=== PATIENT | female | born 1940 | race Caucasian/White ===

== ENCOUNTER 2017-06-20 08:07 | Outpatient (CLI) | payer MEDICARE, OTHER ==
--- NOTE | 2017-06-20 09:20 | PRG ---
DATE OF SERVICE: 06/20/2017 HISTORY: Ms. Lexie Echevarria is a very pleasant 76-year-old accompanied by her idhytigg-mk-ovm who presents [facility] for evaluation of an ulceration of the plantar surface of the righ t lateral midfoot. The patient has completed a course of treatment with Regranex. Subsequently, th e patient received a trial of dressing changes of Hydrofera Blue with the assistance of [facility] for the right lateral plantar foot wound. More recently, the patient has been receiving dressing ch anges of Arglaes powder. Ms. Echevarria has no complaints today. She denies any fever or chills. PHYSICAL EXAMINATION: VITAL SIGNS: Temperature 97.7, pulse 77, respirations 18, blood pressure 180/76. Accu-Chek 131. EXTREMITIES: The right lateral plantar midfoot ulceration measures approximately 0.5 x 0.5 cm. The dimensions of the wound at the time of the patient's last visit were approximately 0.6 x 0.7 cm. G ranulation tissue is present within the margins of the wound. Nonviable tissue present within the w ound margins was debrided with an excisional full-thickness debridement with the use of a curette. Callus undermining and desiccated tissue at the periphery of the wound were excised with the use of scissors. No purulent drainage is associated with the wound. An odor is associated with the wound on exam today. No erythema of the skin surrounding the wound is present. No maceration of the skin of the periwound is noted. No significant edema of the right foot is appreciated on exam today. ASSESSMENT AND PLAN: 1. Right lateral midfoot plantar ulceration. Dressing changes of Arglaes powder, 4 x 4s and ABD an d Kerlix will be continued 3 times per week after cleansing and irrigation with the assistance of [facility]. Promogran will be added to the patient's regimen and applied directly to the wound bed a t the time of dressing changes. I will see Ms. Echevarria again in 8 weeks. The patient has been give n a prescription for Augmentin 875/125, #20, 1 p.o. b.i.d. x10 days. 2. Diabetes mellitus. The patient's Accu-Chek in clinic today is 131. The patient has been remind ed that for optimal wound healing, her blood glucoses should remain below 150. 3. Coronary artery disease. 4. Hypertension. 5. History of peripheral vascular disease. 6. Renal insufficiency. 7. Osteoarthritis. 8. Obstructive sleep apnea. 9. Chronic obstructive pulmonary disease.
[2017-06-20] MEDS ORDERED: Lidocaine 4% Topical Sol 50 ML BOT ONE (11:11)
[2017-06-20] MEDS ORDERED: Sodium Chloride 0.9% 15 ML NEB ONE (11:11)
== END 2017-06-20 08:08 | disposition home or self-care (01) ==
LOC: WCC 08:07
PROVIDERS: ATTEND Family Medicine
DX: E11.621 Type 2 diabetes mellitus with foot ulcer (principal); L97.419 Non-pressure chronic ulcer of right heel and midfoot with unspecified severity; I25.10 Atherosclerotic heart disease of native coronary artery without angina pectoris; I10 Essential (primary) hypertension; M19.90 Unspecified osteoarthritis, unspecified site; E11.51 Type 2 diabetes mellitus with diabetic peripheral angiopathy without gangrene; J44.9 Chronic obstructive pulmonary disease, unspecified; G47.33 Obstructive sleep apnea (adult) (pediatric); N28.9 Disorder of kidney and ureter, unspecified
CPT/HCPCS: 11042; A4218; J2001

== ENCOUNTER 2017-07-25 08:10 | Outpatient (CLI) | payer MEDICARE, MEDICAID ==
--- NOTE | 2017-07-25 09:51 | PRG ---
DATE OF SERVICE: 07/25/2017 HISTORY: Ms. Lexie Echevarrai is a very pleasant 76-year-old accompanied by her wpsjpedl-ci-aol who presents to the Wound Center for evaluation of an ulceration of the plantar surface of the right lateral midfoot. The patient has completed a course of treatment with Regranex. Subsequently, the patient received a trial of dressing changes of Hydrofera Blue with the assistance of [facility] for the right lateral plantar foot wound. More recently, the patient has been receiving dressing changes of Arglaes powder. Ms. Echevarria denies any fever or chills. PHYSICAL EXAMINATION: VITAL SIGNS: Temperature 97.8, pulse 85, respirations 17, blood pressure 139/ 65. Accu-Chek 121. EXTREMITIES: The right lateral plantar midfoot ulceration measures approximately 1.0 x 0.8 cm. The dimensions of the wound at the time of the patient's last visit were approximately 0.5 x 0.5 cm. Granulation tissue is present within the wound margins. Callus, undermining, and desiccated tissue at the periphery of the wound were excised with an excisional full-thickness debridement with the use of scissors. No purulent drainage is associated with the wound. No erythema of the skin surrounding the wound is present. No maceration of the skin of the periwound is noted. No significant edema of the right foot is appreciated on exam today. ASSESSMENT AND PLAN: 1. Right lateral midfoot plantar ulceration. The dimensions of the wound have increased since the patient's last visit, and dressing changes of Hydrofera Blue will be resumed. 4 x 4s, an ABD, and Kerlix will be continued as secondary dressings. These dressing changes are to be performed 3 times per week after cleansing and irrigation with the assistance of Home [facility]. I will see Ms. Echevarria again in 8 weeks. 2. Diabetes mellitus. The patient's Accu-Chek in clinic today is 121. The patient has been reminded that for optimal wound healing, her blood glucoses should remain below 150. 3. Coronary artery disease. 4. Hypertension. 5. History of peripheral vascular disease. 6. Renal insufficiency. 7. Osteoarthritis. 8. Obstructive sleep apnea. 9. Chronic obstructive pulmonary disease. [facility]
[2017-07-25] MEDS ORDERED: Sodium Chloride 0.9% 15 ML NEB ONE (17:50)
== END 2017-07-25 08:11 | disposition home or self-care (01) ==
LOC: WCC 08:10
PROVIDERS: ATTEND Family Medicine
DX: E11.621 Type 2 diabetes mellitus with foot ulcer (principal); L97.419 Non-pressure chronic ulcer of right heel and midfoot with unspecified severity; M19.90 Unspecified osteoarthritis, unspecified site; J44.9 Chronic obstructive pulmonary disease, unspecified; G47.33 Obstructive sleep apnea (adult) (pediatric); N28.9 Disorder of kidney and ureter, unspecified
CPT/HCPCS: 11042; A4218

== ENCOUNTER 2017-08-05 09:05 | Outpatient (CLI) | payer MEDICARE, MEDICAID ==
[~2017-08-05 09:05] MED LIST: Sodium Chloride 0.9% 15 ML NEB ONE
[2017-08-05] MEDS ORDERED: Sodium Chloride 0.9% 15 ML NEB ONE (11:04)
--- NOTE | 2017-08-05 16:33 | PRG ---
DATE OF SERVICE: 08/05/2017 HISTORY: Ms. Lexie Echevarria is a very pleasant 76-year-old accompanied by her [id number] , who presents to the Wound Center for evaluation of a venous ulceration of the left anterior lower leg. The patient states that the ulceration has been associated with significant serous drainage as well as an odor. The patient states that she has been receiving dressing changes of Adaptic, 4 x 4 s, an ABD and Kerlix for the ulceration 3 times per week with the assistance of Home [facility]. The pa tracey states that on her own, she began applying Neosporin to the ulceration with an improvement in the appearance of the wound. The patient has no other complaints today. She denies any fever or ch ills. PHYSICAL EXAMINATION: VITAL SIGNS: Temperature 97.5, pulse 72, respirations 18, blood pressure 179/76. Accu-Chek 151. EXTREMITIES: The venous ulceration of the left anterior lower leg measures approximately 2.2 x 1.5 cm. A sample of the serous drainage associated with the wound was sent for aerobic and anaerobic cu ltures. Erythema of the left lower leg is present and appears to be secondary to stasis changes as opposed to an infectious process. No maceration of the skin of the left lower leg is present. No s ignificant edema of the left foot or lower leg is appreciated on exam today. ASSESSMENT AND PLAN: 1. 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 Dressing changes of Neosporin, Adaptic , 4 x 4s, an ABD and Kerlix will be initiated today. These dressing changes are to be performed 3 t imes per week after cleansing and irrigation with the assistance of Home [facility]. The patient has be en given a prescription for Augmentin 875/125, #20 one p.o. b.i.d. x10 days. Antibiotic therapy danyell l be modified based upon the results of the cultures obtained today. I will see Ms. Echevarria again i n 4 weeks. Unfortunately, the patient is not a candidate for treatment with a pneumatic pump becaus e of her inability to recline in the supine position. The patient is also not a candidate for compr ession with compression garments or compression wraps per Cardiology. 2. Diabetes mellitus. The patient's Accu-Chek in clinic today is 151. The patient has been remind ed that for optimal wound healing, her blood glucoses should remain below 150. 3. Coronary artery disease. 4. Hypertension. 5. History of peripheral vascular disease. 6. Renal insufficiency. 7. Osteoarthritis. 8. Obstructive sleep apnea. 9. Chronic obstructive pulmonary disease.
== END 2017-08-05 09:06 | disposition home or self-care (01) ==
LOC: WCC 09:05
PROVIDERS: ATTEND Family Medicine
DX: I87.332 Chronic venous hypertension (idiopathic) with ulcer and inflammation of left lower extremity (principal); L97.829 Non-pressure chronic ulcer of other part of left lower leg with unspecified severity; E11.9 Type 2 diabetes mellitus without complications; I10 Essential (primary) hypertension; N28.9 Disorder of kidney and ureter, unspecified; Z86.79 Personal history of other diseases of the circulatory system; J44.9 Chronic obstructive pulmonary disease, unspecified; M19.90 Unspecified osteoarthritis, unspecified site; G47.33 Obstructive sleep apnea (adult) (pediatric)
CPT/HCPCS: 87070; 87075; 87077; 87184; 87186; 87205; 97139; 97602; G0463; 99213; A4218

== ENCOUNTER 2017-08-29 08:45 | Outpatient (CLI) | payer MEDICARE, OTHER ==
--- NOTE | 2017-08-29 10:07 | PRG ---
DATE OF SERVICE: 08/29/2017 HISTORY: Ms. Lexie Echevarria is a very pleasant 76-year-old accompanied by her [id number]-[id number], who presents to the Wound Center for evaluation of an ulceration of the plantar surface of the right lateral midfoot. The patient has been receiving dressing changes of Hydrofera Blue for this wound 3 times per week after cleansing and irrigation with the assistance of Home [facility]. Ms. Echevarria state s that she is applying Neosporin to the venous ulcerations of her right and left lower legs. The pat ient has no complaints today. She denies any fever or chills. PHYSICAL EXAMINATION: VITAL SIGNS: Temperature 97.3, pulse 81, respirations 17, blood pressure 153/71. Accu-Chek 143. EXTREMITIES: The venous ulcerations of the right and left lower legs appear to be healing without co mplications or any signs of infection. The ulceration of the plantar surface of the right lateral mi dfoot measures approximately 0.4 x 0.5 cm. Granulation tissue is present within the wound margins. Necrotic and nonviable tissue present within the wound margins was debrided with an excisional full-t hickness debridement with the use of a curette. Callus undermining and desiccated tissue at the [place] p[place] of the wound were excised with the use of scissors. No purulent drainage is associated with th e wound. No erythema of the skin surrounding the wound is present. No maceration of the skin of the periwound is noted. Post-debridement measurements are approximately 0.6 x 0.8 cm. ASSESSMENT AND PLAN: 1. Plantar ulceration of right lateral midfoot. Dressing changes of Hydrofera Blue, an ABD and Kerl ix will be continued 3 times per week after cleansing and irrigation with the assistance of [facility] for the venous ulcerations of the right and left lower legs. The patient is to receive dressing c hanges of Neosporin, ABDs and Kerlix also 3 times per week after cleansing and irrigation with the as sistance of Home Health. I will see Ms. Echevarria again in 4 weeks. 2. Diabetes mellitus. The patient's Accu-Chek in clinic today is 143. The patient has been reminde d that for optimal wound healing, her blood glucoses should remain below 150. 3. Coronary artery disease. 4. Hypertension. 5. History of peripheral vascular disease. 6. Renal insufficiency. 7. Osteoarthritis. 8. Obstructive sleep apnea. 9. Chronic obstructive pulmonary disease.
== END 2017-08-29 08:46 | disposition home or self-care (01) ==
LOC: WCC 08:45
PROVIDERS: ATTEND Family Medicine
DX: E11.621 Type 2 diabetes mellitus with foot ulcer (principal); L97.419 Non-pressure chronic ulcer of right heel and midfoot with unspecified severity; I10 Essential (primary) hypertension; I25.10 Atherosclerotic heart disease of native coronary artery without angina pectoris; J44.9 Chronic obstructive pulmonary disease, unspecified; N28.9 Disorder of kidney and ureter, unspecified; G47.33 Obstructive sleep apnea (adult) (pediatric); M19.90 Unspecified osteoarthritis, unspecified site; Z86.79 Personal history of other diseases of the circulatory system
CPT/HCPCS: 11042

== ENCOUNTER 2017-09-26 08:03 | Outpatient (CLI) | payer MEDICARE, OTHER ==
[2017-09-26] MEDS ORDERED: Sodium Chloride 0.9% 15 ML NEB ONE (09:00)
--- NOTE | 2017-09-26 09:47 | PRG ---
DATE OF SERVICE: 09/26/2017 HISTORY: Ms. Lexie Echevarria is a very pleasant 76-year-old accompanied by her [id number]-lh-mjj who presents to the Wound Center for evaluation of an ulceration of the plantar surface of the right lateral mid foot. The patient has been receiving dressing changes of Hydrofera Blue for the wound 3 times per week after cleansing and irrigation with the assistance of Home [facility]. The patient state s that she is now receiving dressing changes of Arglaes powder for the venous ulcerations of her righ t and left lower legs. She states that she previously had significant drainage associated with the v enous ulcerations of her right and left lower legs which decreased with dressing changes of Arglaes p owder. The patient denies any fever or chills. PHYSICAL EXAMINATION: VITAL SIGNS: Temperature 97.6, pulse 76, respirations 16, blood pressure 160/68. Accu-Chek 121. EXTREMITIES: Multiple venous ulcerations of the right and left lower legs are still present. No pur ulent drainage is associated with any of the wounds. The ulceration of the plantar surface of the ri t lateral mid foot measures approximately 0.6 x 0.5 cm. Granulation tissue is present within the w ound margins. Necrotic and nonviable tissue present within the wound margins was debrided with an ex cisional full-thickness debridement with the use of scissors. Callus undermining and desiccated tiss ue at the periphery of the wound were also excised with the use of scissors. No purulent drainage is associated with the wound. No erythema of the skin surrounding the wound is present. No maceration of the skin of the periwound is noted. Edema of the right foot and lower leg is present on exam tod elvira. ASSESSMENT AND PLAN: 1. Plantar ulceration of right lateral mid foot. Dressing changes of Hydrofera Blue, an ABD and Ker lix will be continued 3 times per week after cleansing and irrigation with the assistance of Home [facility]. For the venous ulcerations of the right and left lower legs the patient is to receive dressing changes of Arglaes powder, ABDs and Kerlix also 3 times per week after cleansing and irrigation with the assistance of Home [facility]. I will see Ms. Echevarria again in 4 weeks. 2. Diabetes mellitus. The patient's Accu-Chek in clinic today is 121. The patient has been reminde d that for optimal wound healing, her blood glucoses should remain below 150. 3. Coronary artery disease. 4. Hypertension. 5. History of peripheral vascular disease. 6. Renal insufficiency. 7. Osteoarthritis. 8. Obstructive sleep apnea. 9. Chronic obstructive pulmonary disease.
== END 2017-09-26 08:04 | disposition home or self-care (01) ==
LOC: WCC 08:03
PROVIDERS: ATTEND Family Medicine
DX: E11.621 Type 2 diabetes mellitus with foot ulcer (principal); L97.419 Non-pressure chronic ulcer of right heel and midfoot with unspecified severity; I25.10 Atherosclerotic heart disease of native coronary artery without angina pectoris; I10 Essential (primary) hypertension; M19.90 Unspecified osteoarthritis, unspecified site; G47.33 Obstructive sleep apnea (adult) (pediatric); N28.9 Disorder of kidney and ureter, unspecified; J44.9 Chronic obstructive pulmonary disease, unspecified; Z86.79 Personal history of other diseases of the circulatory system
CPT/HCPCS: 11042; A4218

== ENCOUNTER 2017-10-24 08:33 | Outpatient (CLI) | payer MEDICARE, OTHER, MEDICAID ==
--- NOTE | 2017-10-24 10:52 | PRG ---
DATE OF SERVICE: 10/24/2017 HISTORY: Ms. Lexie Echevarria is a very pleasant 76-year-old accompanied by her owtvyzey-gh-ajo who presents to the Wound Center for evaluation of an ulceration of the plantar surface of the right lateral midfoot. The patient states that most recently she has been receiving dressing changes of Arglaes powder for the wound 3 times per week after cleansing and irrigation with the assistance of Home [facility]. The patient states that she is also receiving dressing changes of Arglaes powder for the venous ulcerations of her right and left lower legs. She previously stated that she had experienced significant drainage with the venous ulcerations of her right and left lower legs which decreased with dressing changes of Arglaes powder. Ms. Echevarria denies any fever or chills. PHYSICAL EXAMINATION: VITAL SIGNS: Temperature 97.4, pulse 89, respirations 17, blood pressure 161/ 71. Accu-Chek 142. EXTREMITIES: Multiple venous ulcerations of the right and left lower legs are still present. No purulent drainage is associated with any of the wounds. The ulceration of the plantar surface of the right lateral midfoot measures approximately 0.4 x 0.4 cm. The dimensions of the wound at the time of the patient's visit on 09/26/2017 were approximately 0.6 x 0.5 cm. Granulation tissue is present within the wound margins. Necrotic and nonviable tissue present within the wound margins was debrided with an excisional full-thickness debridement with the use of scissors. Callus, undermining, and desiccated tissue at the periphery of the wound were also excised with the use of scissors. No purulent drainage is associated with the wound. No erythema of the skin surrounding the wound is present. No maceration of the skin of the periwound is noted. Edema of the right and left feet and lower legs is present on exam today. ASSESSMENT AND PLAN: 1. Plantar ulceration of right lateral midfoot. The patient also has venous ulcerations of the right and left lower legs. Orders will be transmitted to Home Health for dressing changes of Arglaes powder, ABDs, and Kerlix for all wounds 3 times per week after cleansing and irrigation with the assistance of Home [facility]. Orders will also be transmitted to Home Health for the use of foam at the time of dressing changes for offloading of the right plantar wound. I will see Ms. Echevarria again in 8 weeks. 2. Diabetes mellitus. The patient's Accu-Chek in clinic today is 142. The patient has been reminded that for optimal wound healing, her blood glucoses should remain below 150. 3. Coronary artery disease. 4. Hypertension. 5. History of peripheral vascular disease. 6. Renal insufficiency. 7. Osteoarthritis. 8. Obstructive sleep apnea. 9. Chronic obstructive pulmonary disease. MTDD
== END 2017-10-24 08:34 | disposition home or self-care (01) ==
LOC: WCC 08:33
PROVIDERS: ATTEND Family Medicine
DX: E11.621 Type 2 diabetes mellitus with foot ulcer (principal); L97.419 Non-pressure chronic ulcer of right heel and midfoot with unspecified severity; I25.10 Atherosclerotic heart disease of native coronary artery without angina pectoris; I10 Essential (primary) hypertension; N28.9 Disorder of kidney and ureter, unspecified; M19.90 Unspecified osteoarthritis, unspecified site; J44.9 Chronic obstructive pulmonary disease, unspecified; G47.33 Obstructive sleep apnea (adult) (pediatric); Z86.79 Personal history of other diseases of the circulatory system
CPT/HCPCS: 11042

== ENCOUNTER 2017-11-11 10:06 | Outpatient (CLI) | payer MEDICARE, MEDICAID ==
[2017-11-11] MEDS ORDERED: Lidocaine 2% Jelly 5 ML TUBE ONE (11:11)
[2017-11-11] MEDS ORDERED: Sodium Chloride 0.9% 15 ML NEB ONE (11:11)
--- NOTE | 2017-11-11 12:29 | PRG ---
DATE OF SERVICE: 11/11/2017 HISTORY: Ms. Lexie Echevarria is a very pleasant 76-year-old accompanied by her jmalhlhz-nw-bhj who presents to the Wound Center for evaluation of a new ulceration of the plantar surface of the left lateral foot. The patient also complains of an odor associated with the ulceration of the plantar surface of the right lateral midfoot. The patient has been receiving dressing changes of Arglaes powder for the plantar ulceration of the right lateral midfoot in addition to venous ulcerations of the right and left lower legs. The patient denies any fever or chills. She states that the ulceration of the plantar surface of the left lateral foot was noted by her Home Health nurse. She states that she does not recall stepping on any object which may have precipitated the appearance of the ulceration. PHYSICAL EXAMINATION: VITAL SIGNS: Temperature 97.6, pulse 78, respirations 18, blood pressure 196/ 85. Accu-Chek 125. EXTREMITIES: Multiple venous ulcerations of the right and left lower legs are still present. No purulent drainage is associated with any of the wounds. The ulceration of the plantar surface of the right lateral midfoot measures approximately 0.5 x 0.5 cm. Granulation tissue is present within the wound margins. Necrotic and nonviable tissue present within the wound margins was debrided with an excisional full-thickness debridement with the use of a curette. Callus, undermining, and desiccated tissue at the periphery of the wound were excised with the use of scissors. No purulent drainage is associated with the wound. No erythema of the skin surrounding the wound is present. No maceration of the skin of the periwound is noted. Edema of the right and left feet and lower legs is present on exam today. The ulceration of the plantar surface of the left lateral foot measures approximately 0.3 x 0.2 cm. No purulent drainage is associated with the wound. No erythema of the skin surrounding the wound is present. No maceration of the skin of the periwound is noted. ASSESSMENT AND PLAN: 1. Plantar ulceration of right lateral foot. As stated above, the patient also has a new ulceration of the plantar surface of the left lateral foot. Orders will be transmitted to Home Health for dressing changes of Xeroform gauze , ABDs, and Kerlix for all wounds 3 times per week after cleansing and irrigation with the assistance of Home Health. Plain films of the left foot will be obtained today to look for findings suggestive of a foreign body which may have precipitated the appearance of the left foot ulceration. The patient has also been given a prescription for Keflex 500 mg #20 one p.o. b.i.d. x10 days. The patient has been asked to contact the clinic in order to obtain the report of the plain films of the left foot. 2. Diabetes mellitus. The patient's Accu-Chek in clinic today is 125. The patient has been reminded that for optimal wound healing, her blood glucoses should remain below 150. 3. Coronary artery disease. 4. Hypertension. 5. History of peripheral vascular disease. 6. Renal insufficiency. 7. Osteoarthritis. 8. Obstructive sleep apnea. 9. Chronic obstructive pulmonary disease. MTDD
== END 2017-11-11 10:07 | disposition home or self-care (01) ==
LOC: WCC 10:06
PROVIDERS: ATTEND Family Medicine
DX: E11.621 Type 2 diabetes mellitus with foot ulcer (principal); L97.519 Non-pressure chronic ulcer of other part of right foot with unspecified severity; L97.529 Non-pressure chronic ulcer of other part of left foot with unspecified severity; I25.10 Atherosclerotic heart disease of native coronary artery without angina pectoris; I10 Essential (primary) hypertension; N28.9 Disorder of kidney and ureter, unspecified; M19.90 Unspecified osteoarthritis, unspecified site; G47.33 Obstructive sleep apnea (adult) (pediatric); J44.9 Chronic obstructive pulmonary disease, unspecified; I73.9 Peripheral vascular disease, unspecified
CPT/HCPCS: 11042; A4218

== ENCOUNTER 2017-11-11 12:43 | Outpatient (CLI) | payer MEDICARE, OTHER ==
--- NOTE | 2017-11-11 14:44 | RAD ---
LEFT FOOT 3 VIEWS: HISTORY: Evaluation for foreign body. FINDINGS: Bones are demineralized. There are arthritic changes of the foot. There are calcaneal spurs present . There is some soft tissue swelling noted. I do not see any radiopaque foreign bodies or plain chi m evidence for osteomyelitis. IMPRESSION: No plain film evidence for osteomyelitis. POS: [facility]
== END 2017-11-11 12:44 | disposition home or self-care (01) ==
LOC: RAD 12:43
PROVIDERS: ATTEND Family Medicine
DX: L97.529 Non-pressure chronic ulcer of other part of left foot with unspecified severity (principal)

== ENCOUNTER 2017-12-19 08:05 | Outpatient (CLI) | payer MEDICARE, MEDICAID ==
--- NOTE | 2017-12-19 09:19 | PRG ---
DATE OF SERVICE: 12/19/2017 HISTORY: Ms. Lexie Echevarria is a very pleasant 76-year-old accompanied by her rfwserun-fm-gtv who presents to the Wound Center for evaluation of an ulceration of the plantar surface of the right lateral midfoot. The patient also has an ulceration of the plantar surface of the left lateral foot. The patient has been receiving dressing changes of Xeroform gauze for both ulcerations with the assistance of Home Health. Ms. Echevarria has no other complaints today. She denies any fever or chills. PHYSICAL EXAMINATION: VITAL SIGNS: Temperature 97.7, pulse 75, respirations 18, blood pressure 152/ 67. Accu-Chek 118. EXTREMITIES: Multiple venous ulcerations of the right and left lower legs are still present. No purulent drainage is associated with any of the wounds. The ulceration of the plantar surface of the right lateral midfoot measures approximately 0.6 x 0.9 cm. Granulation tissue is present within the wound margins. Necrotic and nonviable tissue present within the wound margins was debrided with an excisional full-thickness debridement with the use of a curet. Callus, undermining, and desiccated tissue at the periphery of the wound were excised with the use of scissors. No purulent drainage is associated with the wound. No erythema of the skin surrounding the wound is present. No maceration of the skin of the periwound is noted. Edema of the right and left feet and lower legs is present on exam today. The ulceration of the plantar surface of the left lateral foot measures approximately 0.2 x 0.2 cm. No purulent drainage is associated with the wound. No erythema of the skin surrounding the wound is present. No maceration of the skin of the periwound is noted. ASSESSMENT AND PLAN: 1. Plantar ulceration of right lateral foot. As stated above, the patient also has an ulceration of the plantar surface of the left lateral foot. Orders will be transmitted to Home Health for dressing changes of Xeroform gauze, ABDs , and Kerlix for all wounds on a daily basis after cleansing and irrigation with the assistance of Home Health. Plain films of the left foot obtained on showed no evidence for osteomyelitis. Plain films also did not reveal any radiopaque foreign bodies. I will see Ms. Echevarria again in 8 weeks. 2. Diabetes mellitus. The patient's Accu-Chek in clinic today is 118. The patient has been reminded that for optimal wound healing, her blood glucoses should remain below 150. 3. Coronary artery disease. 4. Hypertension. 5. History of peripheral vascular disease. 6. Renal insufficiency. 7. Osteoarthritis. 8. Obstructive sleep apnea. 9. Chronic obstructive pulmonary disease. MTDD
[2017-12-19] MEDS ORDERED: Sodium Chloride 0.9% 15 ML NEB ONE (17:12)
[2017-12-19] MEDS ORDERED: Lidocaine 2% Jelly 5 ML TUBE ONE (17:12)
== END 2017-12-19 08:06 | disposition home or self-care (01) ==
LOC: WCC 08:05
PROVIDERS: ATTEND Family Medicine
DX: E11.621 Type 2 diabetes mellitus with foot ulcer (principal); L97.519 Non-pressure chronic ulcer of other part of right foot with unspecified severity; I25.10 Atherosclerotic heart disease of native coronary artery without angina pectoris; I10 Essential (primary) hypertension; I73.9 Peripheral vascular disease, unspecified; M19.90 Unspecified osteoarthritis, unspecified site; G47.33 Obstructive sleep apnea (adult) (pediatric); N28.9 Disorder of kidney and ureter, unspecified; J44.9 Chronic obstructive pulmonary disease, unspecified
CPT/HCPCS: 11042; A4218

== ENCOUNTER 2018-01-01 12:37 | Outpatient (CLI) | payer MEDICARE, MEDICAID ==
--- NOTE | 2018-01-01 13:16 | RAD ---
TWO VIEWS CHEST: Comparison: None. History: Dyspnea. FINDINGS: Two views of the chest shows normal sized cardiomediastinal silhouette. There is elevation of the rig ht hemidiaphragm. There is no evidence of consolidation, mass, pleural effusion. Degenerative changes are seen in the spine. IMPRESSION: No evidence of acute cardiopulmonary disease. POS: [facility]
== END 2018-01-01 12:38 | disposition home or self-care (01) ==
LOC: RAD 12:37
PROVIDERS: ATTEND Pediatrics
DX: R06.00 Dyspnea, unspecified (principal)
CPT/HCPCS: 71046

== ENCOUNTER 2018-02-13 08:23 | Outpatient (CLI) | payer MEDICARE, OTHER ==
--- NOTE | 2018-02-13 09:24 | PRG ---
DATE OF SERVICE: 02/13/2018 HISTORY: Ms. Lexie Echevarria is a very pleasant 77-year-old accompanied by her [id number] who presents to the [facility] for evaluation of an ulceration of the plantar surface of the right lateral mid foot. The patient also has an ulceration of the plantar surface of the left lateral kathe t. The patient has been receiving dressing changes of Xeroform gauze for both ulcerations with the a ssistance of Home Health. The patient has no other complaints today. She denies any fever or chills . PHYSICAL EXAMINATION: VITAL SIGNS: Temperature 97.5, pulse 75, respirations 20, blood pressure 137/79. Accu-Chek 104. EXTREMITIES: Multiple venous ulcerations of the right and left lower legs are still present. No pur ulent drainage is associated with any of the wounds. The ulceration of the plantar surface of the ri t lateral mid foot measures approximately 0.8 x 1.2 cm. Granulation tissue is present within the w ound margins. Necrotic and nonviable tissue present within the wound margins was debrided with an ex cisional full-thickness debridement with the use of a curet. Callus undermining and desiccated tissu e at the periphery of the wound were excised with the use of scissors. No purulent drainage is assoc iated with the wound. No erythema of the skin surrounding the wound is present. No maceration of th e skin of the periwound is noted. Edema of the right and left feet and lower legs is present on exam today. The ulceration of the plantar surface of the left lateral foot is healing without complicati ons or any signs of infection. ASSESSMENT AND PLAN: 1. Plantar ulceration of right lateral foot. As stated above, the patient also has an ulceration of the plantar surface of the left lateral foot. Orders will be transmitted to Home Health for dressin g changes of Medihoney, 4 x 4s, ABDs and Kerlix for all wounds on a daily basis after cleansing and irrigation with the assistance of Home Health. I will see Ms. Echevarria again in 8 weeks. 2. Diabetes mellitus. The patient's Accu-Chek in clinic today is 104. The patient has been reminde d that for optimal wound healing, her blood glucoses should remain below 150. 3. Coronary artery disease. 4. Hypertension. 5. History of peripheral vascular disease. 6. Renal insufficiency. 7. Osteoarthritis. 8. Obstructive sleep apnea. 9. Chronic obstructive pulmonary disease.
[2018-02-13] MEDS ORDERED: Lidocaine 2% Jelly 5 ML TUBE ONE (21:12)
== END 2018-02-13 08:24 | disposition home or self-care (01) ==
LOC: WCC 08:23
PROVIDERS: ATTEND Family Medicine
DX: E11.621 Type 2 diabetes mellitus with foot ulcer (principal); L97.419 Non-pressure chronic ulcer of right heel and midfoot with unspecified severity; L97.429 Non-pressure chronic ulcer of left heel and midfoot with unspecified severity; I25.10 Atherosclerotic heart disease of native coronary artery without angina pectoris; M19.90 Unspecified osteoarthritis, unspecified site; G47.33 Obstructive sleep apnea (adult) (pediatric); J44.9 Chronic obstructive pulmonary disease, unspecified; I10 Essential (primary) hypertension; N28.9 Disorder of kidney and ureter, unspecified; Z86.79 Personal history of other diseases of the circulatory system
CPT/HCPCS: 11042

== ENCOUNTER 2018-03-24 13:27 | Emergency (ER) | payer MEDICARE, OTHER ==
[2018-03-24 14:14] LABS: #Eosinphils 0.4 thou/uL (0.0-0.7); #Lymphocytes 0.8 thou/uL (1.20-3.40); #Monocytes 0.5 thou/uL (0.11-0.59); %Eosinophils 7.3 % (0.0-10.0); %Lymphocytes 13.5 % (21.0-51.0); %Monocytes 8.4 % (0.0-10.0); %Neutrophils 70.7 % (42.0-75.0); Mean Corpuscular HGB CONC 30.8 g/dL (32.0-36.0); Mean Corpuscular Volume 87.7 fL (78.0-98.0); Mean Platelet Volume 7.3 fL (7.4-10.4); Platelet Count 196 thou/uL (130-400); RBC Distribution Width 13.5 % (11.5-14.5); Red Blood Cell (RBC) Count 4.45 mill/uL (4.20-5.40); White Blood Cell (WBC) Count 5.7 thou/uL (4.8-10.8)
[2018-03-24 14:33] LABS: ALT (SGPT) Less than 7 U/L (8-55); AST (SGOT) 13 U/L (5-34); Albumin 3.1 g/dL (3.4-4.8); Alkaline Phosphatase 78 U/L (40-150); Anion Gap 12 mmol/L (10-20); BUN (Urea Nitrogen) 70 mg/dL (9.8-20.1); Bilirubin, Total 0.3 mg/dL (0.2-1.2); Calc. Creatinine Clearance 0 mL/min (70-130); Calcium 9.4 mg/dL (7.8-10.44); Carbon Dioxide 29 mmol/L (23-31); Chloride 105 mmol/L (98-107); Estimated GFR-MDRD 23; Globulin 3.9 g/dL (2.4-3.5); Glucose 225 mg/dL (83-110); Potassium 4.8 mmol/L (3.5-5.1); Sodium 141 mmol/L (136-145)
[2018-03-24 15:04] LABS: CK (CPK) 105 U/L (29-168); Lipase 17 U/L (8-78)
[2018-03-24 15:12] LABS: Troponin I 0.026 ng/mL (< 0.028)
[2018-03-24 15:15] LABS: CKMB 7.8 ng/mL (0-6.6)
--- NOTE | 2018-03-24 15:51 | RAD ---
FRONTAL VIEW CHEST: Comparison: 01-01-18 Clinical history: Altered mental status. Abnormal laboratory values. FINDINGS: There is marked elevation of the right hemidiaphragm with adjacent opacity that could relate to atele ctasis. Left lung is grossly clear. Cardiac silhouette is accentuated. Chest is otherwise similar. IMPRESSION: 1. Marked elevation right hemidiaphragm with adjacent patchy density. 2. As necessary, imaging follow with two view chest may provide useful. POS: [facility]
== END 2018-03-24 15:28 | disposition home or self-care (01) ==
LOC: ERS 13:27
DX: R79.89 Other specified abnormal findings of blood chemistry (principal); I13.0 Hypertensive heart and chronic kidney disease with heart failure and stage 1 through stage 4 chronic kidney disease, or unspecified chronic kidney disease; I50.9 Heart failure, unspecified; E11.22 Type 2 diabetes mellitus with diabetic chronic kidney disease; N18.9 Chronic kidney disease, unspecified; I25.10 Atherosclerotic heart disease of native coronary artery without angina pectoris; J44.9 Chronic obstructive pulmonary disease, unspecified; Z79.899 Other long term (current) drug therapy; Z79.51 Long term (current) use of inhaled steroids
CPT/HCPCS: 36415; 71045; 80053; 82553; 83690; 83880; 84484; 85025; 93005

== ENCOUNTER 2018-04-10 07:57 | Outpatient (CLI) | payer MEDICARE, OTHER ==
--- NOTE | 2018-04-10 09:12 | PRG ---
DATE OF SERVICE: 04/10/2018 HISTORY: Ms. Lexie Echevarria is a very pleasant 77-year-old accompanied by her [id number] who presents to the [facility] Center for evaluation of an ulceration of the plantar surface of the right lateral midfoot. The patient also has an ulceration of the plantar surface of the left lateral foot. The patient was unable to tolerate dressing changes of Medihoney for the past 2 weeks. The patient has no other complaints today. She denies any fever or chills. PHYSICAL EXAMINATION: VITAL SIGNS: Temperature 97.7, pulse 72, respirations 20, blood pressure 167/72. Accu-Chek 118. EXTREMITIES: Multiple venous ulcerations of the right and left lower legs are still present. No pur ulent drainage is associated with any of the wounds. The ulceration of the plantar surface of the ri ght lateral midfoot measures approximately 0.5 x 0.8 cm. Granulation tissue is present within the wo und margins. Necrotic and nonviable tissue present within the wound margins was debrided with an exc isional full-thickness debridement. Callus undermining and desiccated tissue at the periphery of the wound were excised with the use of scissors. No purulent drainage is associated with the wound. No erythema of the skin surrounding the wound is present. No maceration of the skin of the periwound i s noted. Edema of the right and left feet and lower legs is present on exam today. The ulceration o f the plantar surface of the left lateral foot measures approximately 0.3 x 0.4 cm. Very little to n o granulation tissue is present within the wound margins. Callus undermining and desiccated tissue a t the periphery of the wound were excised with the use of scissors. No purulent drainage is associat ed with the wound. No erythema of the skin surrounding the wound is present. No maceration of the s kin of the periwound is noted. ASSESSMENT AND PLAN: 1. Plantar ulceration of right lateral foot. As stated above, the patient also has an ulceration of the plantar surface of the left lateral foot. Orders will be transmitted to Home Health for dressin g changes of Xeroform gauze, ABDs and Kerlix for all wounds except the left plantar wound on a daily basis after cleansing and irrigation with the assistance of Home Health. For the ulceration of the p lantar surface of the left lateral foot, the patient is to receive dressing changes of Promogran, ABD , and Kerlix. I will see Ms. Echevarria again in 4 weeks. 2. Diabetes mellitus. The patient's Accu-Chek in clinic today is 118. The patient has been reminde d that for optimal wound healing, her blood glucoses should remain below 150. 3. Coronary artery disease. 4. Hypertension. 5. History of peripheral vascular disease. 6. Renal insufficiency. 7. Osteoarthritis. 8. Obstructive sleep apnea. 9. Chronic obstructive pulmonary disease.
== END 2018-04-10 07:58 | disposition home or self-care (01) ==
LOC: WCC 07:57
PROVIDERS: ATTEND Family Medicine
DX: E11.621 Type 2 diabetes mellitus with foot ulcer (principal); L97.419 Non-pressure chronic ulcer of right heel and midfoot with unspecified severity; I25.10 Atherosclerotic heart disease of native coronary artery without angina pectoris; I10 Essential (primary) hypertension; N28.9 Disorder of kidney and ureter, unspecified; M19.90 Unspecified osteoarthritis, unspecified site; G47.33 Obstructive sleep apnea (adult) (pediatric); J44.9 Chronic obstructive pulmonary disease, unspecified; Z86.79 Personal history of other diseases of the circulatory system
CPT/HCPCS: 29581

== ENCOUNTER 2018-05-12 | Outpatient (CLI) | payer MEDICARE, OTHER | END 2018-05-12 10:01 | disposition home or self-care (01) | DX: E11.621 Type 2 diabetes mellitus with foot ulcer (principal); L97.519 Non-pressure chronic ulcer of other part of right foot with unspecified severity; I25.10 Atherosclerotic heart disease of native coronary artery without angina pectoris; I10 Essential (primary) hypertension; N28.9 Disorder of kidney and ureter, unspecified; G47.33 Obstructive sleep apnea (adult) (pediatric); J44.9 Chronic obstructive pulmonary disease, unspecified; M19.90 Unspecified osteoarthritis, unspecified site; Z86.79 Personal history of other diseases of the circulatory system ==

== ENCOUNTER 2018-06-12 11:12 | Inpatient (IN) | payer MEDICARE, MEDICAID ==
[2018-06-12 13:08] LABS: #Eosinphils 0.3 thou/uL (0.0-0.7); #Lymphocytes 0.8 thou/uL (1.20-3.40); #Monocytes 0.4 thou/uL (0.11-0.59); #Neutrophils 3.9 thou/uL (1.40-6.50); %Basophils 0.8 % (0.0-1.0); %Eosinophils 6.1 % (0.0-10.0); %Lymphocytes 14.5 % (21.0-51.0); %Monocytes 7.9 % (0.0-10.0); %Neutrophils 70.8 % (42.0-75.0); Hemoglobin 12.1 g/dL (12.0-16.0); Mean Corpuscular HGB CONC 30.1 g/dL (32.0-36.0); Mean Corpuscular Volume 89.6 fL (78.0-98.0); Mean Platelet Volume 7.7 fL (7.4-10.4); Platelet Count 227 thou/uL (130-400); Red Blood Cell (RBC) Count 4.48 mill/uL (4.20-5.40); White Blood Cell (WBC) Count 5.5 thou/uL (4.8-10.8)
[2018-06-12 13:35] LABS: ALT (SGPT) 7 U/L (8-55); AST (SGOT) 12 U/L (5-34); Albumin 3.2 g/dL (3.4-4.8); Alkaline Phosphatase 94 U/L (40-150); Anion Gap 13 mmol/L (10-20); BUN (Urea Nitrogen) 81 mg/dL (9.8-20.1); Bilirubin, Total 0.2 mg/dL (0.2-1.2); Calc. Creatinine Clearance 0 mL/min (70-130); Calcium 9.2 mg/dL (7.8-10.44); Carbon Dioxide 26 mmol/L (23-31); Chloride 104 mmol/L (98-107); Estimated GFR-MDRD 22; Globulin 4.3 g/dL (2.4-3.5); Glucose 305 mg/dL (83-110); Potassium 4.7 mmol/L (3.5-5.1); Protein, Total 7.5 g/dL (6.0-8.3); Sodium 138 mmol/L (136-145)
[2018-06-12] MEDS ORDERED: Senokot 8.6 MG TAB PO PRN (16:01)
[2018-06-12] MEDS ORDERED: Nitroglycerin 0.4 MG TAB (25 Tab Bottle) SL PRN (16:01)
[2018-06-12] MEDS ORDERED: Dextrose 50% Abboject 50 ML SYRINGE SLOW IVP PRN (16:01)
[2018-06-12] MEDS ORDERED: HumaLOG 300 UNITS/3 ML VIAL SC PRN (16:01)
[2018-06-12] MEDS ORDERED: hydrALAZINE 20 MG/ML VIAL SLOW IVP PRN (16:01)
[2018-06-12] MEDS ORDERED: Dextrose 5% in Water 1,000 ML IV PRN (16:01)
[2018-06-12] MEDS ORDERED: Bisacodyl 5 MG TAB PO PRN (16:01)
[2018-06-12] MEDS ORDERED: Mag-Al 1200 mg/1200 mg/30 ML UDCUP PO PRN (16:01)
[2018-06-12] MEDS ORDERED: Benzonatate 100 MG CAP PO PRN (16:01)
[2018-06-12] MEDS ORDERED: Loratadine 10 MG TAB PO PRN (16:01)
[2018-06-12] MEDS ORDERED: Ondansetron HCl/PF 4 MG/2 ML Vial IVP PRN ×2 (16:01)
[2018-06-12] MEDS ORDERED: cloNIDine 0.1 MG TAB PO PRN (16:01)
[2018-06-12] MEDS ORDERED: Diabetic Tussin 200 MG/10 ML UDCUP PO PRN (16:01)
[2018-06-12 16:36] VITALS: BMI 37.2
[2018-06-12] MEDS: Linezolid 600 MG in Premix Bag 1 BAG IVPB SCH (17:29)
[2018-06-12] MEDS: HumaLOG 300 UNITS/3 ML VIAL SC PRN (17:30)
[2018-06-12] MEDS ORDERED: Prevnar 13-Val Conj/PF 0.5 ML SYRINGE IM ONE (17:30)
--- NOTE | 2018-06-12 17:37 | HP ---
DATE OF ADMISSION: 06/12/2018 PRIMARY CARE PHYSICIAN: Sabrina Esqueda. PRIMARY ANIMAL IMPERSONATOR: Dr. Cole. PRIMARY SCREEN PRINTING CLOTH SPREADER: Dr. Go CHIEF COMPLAINT: Worsening discharge from the bilateral chronic lower extremity ulcers with worsenin g pain. HISTORY OF PRESENTING ILLNESS: Ms. Echevarria is a 77-year-old female with known history of COPD and ch ronic respiratory failure on home oxygen and history of severe peripheral vascular disease, uncontrol led diabetes mellitus and chronic lower extremity wound for years under the care of Dr. Aguero, was sent to the emergency room upon the direction of Dr. Aguero for possible wound infection. History i s mainly obtained by the patient herself and electronic medical records have been reviewed. The patient has known venostasis ulcers to bilateral lower extremities for quite some time now. She has been followed up with home health wound care as well as once a month [facility] at [facility]. For the last 2 days, she has noticed that discharge is copious and greenish and has fo ul odor to it, especially from the ulcer on the top of her right foot. She always has had pain, but some worsening was also noticed. No fever or chills. Otherwise, no other recent illnesses. She was sent to the emergency room by her wound care physician, Dr. Aguero for possible infection and needi ng IV antibiotics. She does report that she has had vascular studies done multiple times by Dr. Sanjeev castillo and has known stenosis of multiple arteries in the lower extremities. ALLERGIES: She has multiple allergies and it was somewhat difficult to figure out which IV antibioti cs will be chosen. She is allergic to AMOXICILLIN, AZTREONAM, CARBAPENEM, FLUOROQUINOLONES, CLAVULAN IC ACID, CLINDAMYCIN, SULFONAMIDES, as well as METRONIDAZOLE and VANCOMYCIN. As such, she is now chaparro ng admitted for IV antibiotic therapy. As per HPI. She is also allergic to CODEINE, Conjugated Estr ogens, Imidazole Alkylating Agents as well as NITROFURANTOIN. PAST MEDICAL HISTORY: 1. COPD and chronic respiratory failure on home oxygen. 2. Peripheral arterial disease. 3. Chronic venous insufficiency with chronic venous stasis ulcer to bilateral lower extremities. 4. Hypertension. 5. Obstructive sleep apnea, noncompliant with CPAP. 6. Morbid obesity. 7. Hypertension. 8. Chronic kidney disease. Dr. Escalante is her automatic nailing machine feeder. 9. Chronic subdural hematoma. 10. Coronary artery disease and diastolic congestive heart failure. PAST SURGICAL HISTORY: 1. Cholecystectomy. 2. . 3. Debridement of foot infection by Dr. Valdivia in the past. 4. Appendectomy. 5. Cholecystectomy. 6. Surgery in the base of leg. SOCIAL HISTORY: The patient lives alone, has no history of tobacco or drug abuse. FAMILY HISTORY: No significant family history of premature coronary artery disease or stroke. CURRENT HOME MEDICATIONS: Not updated yet. According to the ER record, she takes the following; asp irin 81 mg daily, omeprazole 40 mg daily, calcitriol 0.25 mcg daily, Zetia 10 mg daily, Coreg 12.5 mg b.i.d., potassium chloride 10 mEq daily, metolazone 2.5 mg Saturday, Saturday, Saturday, torsemide 20 m g daily, NovoLog 15 units 3 times a day, Levemir 15 units b.i.d. REVIEW OF SYSTEMS: A 12-point review of systems is done. It is negative except for those mentioned in the history and physical. PHYSICAL EXAMINATION: VITAL SIGNS: Upon presentation, blood pressure 155/76, pulse of 86, respirations 18, saturating 94% on 3 liters oxygen, temperature 98.2. GENERAL: No acute distress. She is sitting up in the wheelchair at this point. Awake, alert, orien racquel x3. Daughter is at bedside. HEENT: Mucous membrane is slightly dry. No oropharyngeal exudate or erythema. Head is normocephali c, atraumatic. Pupils are equal, reactive to light and accommodation. Extraocular movement intact. NECK: Supple without any lymphadenopathy, JVD or bruit. CHEST: Clear to auscultation without any wheezing, rales or rhonchi. Rate and rhythm is regular wit hout any murmur, rubs or gallops. ABDOMEN: Obese, soft, nontender, nondistended, positive bowel sounds. EXTREMITIES: Show bilateral erythema extending all the way from the tip of her toes just under her k nees. She had extensive superficial ulceration involving both her legs on the lowery and extending to the circumference of the leg in various stages of healing. She also has dime sized deep ulcer on the plantar aspect of her right foot and also significant purulence and fluctuance on the top dorsal asp ect of her right foot with purulent discharge. It feels warm to touch. Foul odor is noticed. PSYCHIATRIC: Normal affect. NEUROLOGIC: Examination is nonfocal. SKIN: Examination showed erythema to bilateral lower extremities as above. LABORATORY DATA: Her CBC is unremarkable. Serum chemistries show BUN 81, creatinine 2.21, which is her baseline. Blood sugar 305, albumin low at 3.2. CODE STATUS: DO NOT RESUSCITATE as discussed with the patient. ASSESSMENT AND PLAN: 1. Ms. Echevarria is currently being admitted for infection of her chronic venous ulcers. We will requ est help with Infectious Disease for antibiotic choice given her history of MDR pathogens as well as allergies to multiple antibiotics. We will get x-ray of both feet and also consult Wound Care. We w ill also consult General Surgery for possible debridement and keep her n.p.o. after midnight. Cultur es have been obtained in the Emergency Room, but they have a high likelihood of being contaminated by the usual skin bacteria. Blood cultures have also been obtained in the emergency room, and we will follow those. The patient reports that she has had some arterial studies done in the past and were t old that she could not get any stenting or bypass done. Her chronic venous ulcers are exacerbated by poor circulation at this time. She might need more extensive surgery in the near future. 2. Diabetes mellitus, uncontrolled with severe hyperglycemia. The patient will be started on insuli n sliding scale as well as long-acting insulin in the form of Lantus. We will do Accu-Cheks a.c. and at bedtime. 3. History of coronary artery disease. Restart her aspirin for now as well as statin, Zetia and Cor eg as well. 4. Chronic diastolic congestive heart failure. Currently compensated. We will restart her metolazo ne and torsemide as home dosages. Restart potassium chloride as well. 5. Chronic venous insufficiency. Continue wound care inpatient and outpatient. 6. CODE STATUS: DO NOT RESUSCITATE as discussed with the patient. 7. Deep venous thrombosis and gastrointestinal prophylaxis. DISPOSITION: Ms. Echevarria is currently being admitted to the hospital with possible infection of the chronic venous ulcers. Estimated length of stay is 2-3 midnights at the minimum. She is hemodynamic ally stable. Further management will depend upon her clinical course.
[2018-06-12] MEDS ORDERED: Aztreonam 1 GM in Sodium Chloride 0.9% 100 ML IVPB SCH (18:00)
[2018-06-12] MEDS: Aztreonam 1 GM in Sodium Chloride 0.9% 100 ML IVPB SCH (20:09)
--- NOTE | 2018-06-12 20:30 | RAD ---
THREE VIEWS LEFT FOOT: 06/12/18 HISTORY: Newly developed ulcer. Osteomyelitis. AP, lateral, and oblique views left foot is obtained. Comparison made from previous exam from 11/11/17 . Three views left foot demonstrates no evidence of left foot fractures, subluxations or bony lesions. IMPRESSION: Normal three views left foot. POS: [facility]
--- NOTE | 2018-06-12 20:58 | RAD ---
THREE VIEWS RIGHT FOOT: 06/12/18 HISTORY: Osteomyelitis. AP, lateral, and oblique views right foot is obtained on 06/12/18. Comparison made to previous exam from 03/28/17. Three views right foot demonstrate interval development of an area of ulceration along the ventral as pect of the right foot along the base of the fifth right metatarsal. Osteoarthritic changes also seen in the metatarsal joints. No acute fractures seen. IMPRESSION: Area of soft tissue ulceration visualized as described above. POS: [facility]
[2018-06-12] MEDS ORDERED: Famotidine 20 MG TAB PO SCH (21:00)
[2018-06-12] MEDS ORDERED: Insulin Glargine 25 UNITS in Pre-Filled Syringe 1 EACH SC SCH (21:00)
[2018-06-13] MEDS: Acetaminophen 325 MG TAB PO PRN ×2 (00:56→18:57)
[2018-06-13 04:55] LABS: #Eosinphils 0.5 thou/uL (0.0-0.7); #Monocytes 0.6 thou/uL (0.11-0.59); #Neutrophils 3.8 thou/uL (1.40-6.50); %Basophils 0.7 % (0.0-1.0); %Lymphocytes 16.2 % (21.0-51.0); %Monocytes 10.3 % (0.0-10.0); %Neutrophils 64.8 % (42.0-75.0); Mean Corpuscular HGB CONC 30.7 g/dL (32.0-36.0); Mean Corpuscular Hemoglobin 27.3 pg (27.0-31.0); Mean Corpuscular Volume 88.9 fL (78.0-98.0); Mean Platelet Volume 7.8 fL (7.4-10.4); Platelet Count 224 thou/uL (130-400); RBC Distribution Width 13.7 % (11.5-14.5); Red Blood Cell (RBC) Count 4.04 mill/uL (4.20-5.40); White Blood Cell (WBC) Count 5.9 thou/uL (4.8-10.8)
[2018-06-13] MEDS: Aztreonam 1 GM in Sodium Chloride 0.9% 100 ML IVPB SCH ×3 (04:55→20:48)
[2018-06-13 05:04] LABS: Anion Gap 12 mmol/L (10-20); BUN (Urea Nitrogen) 71 mg/dL (9.8-20.1); Calc. Creatinine Clearance 46 mL/min (70-130); Calcium 9.4 mg/dL (7.8-10.44); Carbon Dioxide 29 mmol/L (23-31); Chloride 106 mmol/L (98-107); Estimated GFR-MDRD 27; Glucose 205 mg/dL (83-110); Potassium 4.8 mmol/L (3.5-5.1); Sodium 142 mmol/L (136-145)
[2018-06-13] MEDS: Linezolid 600 MG in Premix Bag 1 BAG IVPB SCH ×2 (07:18→17:41)
[2018-06-13] MEDS ORDERED: Enoxaparin Sodium 40 MG/0.4 ML SYRINGE SC SCH ×2 (09:00→21:00)
[2018-06-13] MEDS ORDERED: Insulin Glargine 25 UNITS in Pre-Filled Syringe 1 EACH SC SCH (09:00)
[2018-06-13] MEDS ORDERED: Sodium Chloride 0.9% 1,000 ML IV SCH (10:15)
--- NOTE | 2018-06-13 11:28 | HP ---
HISTORY OF PRESENT ILLNESS: Lexie Echevarria is a 77-year-old female who was admitted to the medica l service based on recommendations by Dr. Aguero in wound care. For more than 10 years, the patient has had problems with chronic venous stasis disease in both lower extremities. Her situation is com plicated in that. She has been told by her gas desulfurizer that because of her PAD, she cannot wear com pression dressings. Certainly, she cannot tolerate the Jobst stockings as they are painful and provi de too much compression. Patient is mobile mostly with a cane, occasionally uses a wheelchair, but h as been independent at home. She has COPD, wears oxygen continuously. She does experience some orth opnea preventing her from lying flat most of the day. The patient has [facility] seeing he r 3 times a week and sees Dr. Aguero in wound care once a week. Her primary care physician has jonathan pastrana that she consider rehabilitation. She stayed in rehab several times in years past and she feel s that it has not accomplished much. The patient is admitted this hospitalization yesterday and she was started on antibiotics, mainly clindamycin and linezolid. ALLERGIES: Multiple, AMOXICILLIN, ATORVASTATIN, AZTREONAM, CARBAPENEM. HOME MEDICATIONS: Levemir 15 units subcu b.i.d.; NovoLog 15 units t.i.d.; torsemide 20 mg daily; met olazone 2.5 mg Saturday, Saturday, and Saturday; carvedilol 12.5 mg b.i.d.; Zetia 10 mg daily; Calcitrio l 0.25 mcg daily; omeprazole 40 mg daily; aspirin 81 mg daily. PAST SURGICAL HISTORY: Peripheral artery disease. She has had interventions during her last interve ntion. 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 Laparoscopic cholecystectomy, appendectomy, C-sec tions, left leg surgery to evacuate what was thought to be a tumor, but turned out to be a hematoma. On 12/21/2013, left darren holes for chronic subdural hematoma. PAST MEDICAL HISTORY: Morbid obesity; type 2 diabetes mellitus, insulin dependent; morbid obesity; m etabolic syndrome; coronary artery disease, followed by Dr. Cole; COPD, oxygen continuous use and p eriodic nebulizers followed by Dr. Go; PAD intervention by Dr. Kowalski in the past. Dr. Chely de leon is her gas desulfurizer. PHYSICAL EXAMINATION: VITAL SIGNS: 5 feet 8, 37 BMI, 97.5, 67, 152/65. LUNGS: Clear to auscultation. CARDIAC: Regular rate and rhythm. ABDOMEN: Soft, obese. EXTREMITIES: She has chronic venous stasis changes both lower extremities from her upper legs bilate rally to her feet. She has open wounds on the anterior aspect of both legs. She has open wounds on the plantar aspect of her foot, but they are superficial and did not track deep. There is healthy gr anulation tissue. There is the epithelization of the dorsum of her right foot more severe than her l eft. LABORATORY DATA: White count 5, hemoglobin 11, BUN 71, creatinine 1.82 (chronic). ASSESSMENT AND PLAN: 1. Chronic venous stasis disease. There is mild cellulitis of both legs, but this is probably more chronic. The patient was admitted due to some greenish drainage and some redness, but this is probab ly more chronic for her. At this point, I think this could be managed with oral antibiotics as an ou tpatient. She has a regimen for management of her chronic venous stasis disease combined with her pe ripheral artery disease well-tuned and has [facility] seen her 3 times a week. She washes the wounds w ith soap and water every one or two days and places dressings. She does her best to avoid dependency , although she suffers orthopnea. I have reiterated that as far as her venous stasis disease, she sh ould avoid prolonged dependency and I have encouraged ambulation due the calf muscle pump mechanism a nd she could elevate her legs above her heart several times a day when able. She will have to have t hem dependent at some time during the day. This is demanded by bathroom needs and daily activity minge ds. She should; however, try to elevate her leg several times a day above her heart, the best she ca n. She should wear some sort of compression garment. Even though she has peripheral artery disease and she cannot wear the compression stockings, she could place an Herminio wrap from her foot to below her knee to broaden her mild compression, I do not think that will be detrimental as far as her peripher al artery disease. I think she would be a good candidate for an Unna boot which could be changed inga r 4-7 days depending on her drainage. This would provide her some degree of compression and should n ot exacerbate her peripheral artery disease. It has been recommended and she has been undergoing miriam luation for rehabilitation. She adamantly does not want this and I do not think it would benefit thi s much for her. 2. Type 2 diabetes mellitus. 3. Hypertension. 4. Coronary artery disease. 5. Metabolic syndrome, morbid obesity. 6. Chronic obstructive pulmonary disease with home oxygen dependency. At this point, I will see her as needed this hospitalization. She should continue her wound care has been outlined above. She ca n follow up in my office in the next few weeks as indicated. Please call if needed. In my opinion, the patient will be discharged home on oral antibiotics to resume her regimen at home. Certainly, th ere is no surgical intervention required and I will resume her diet.
[2018-06-13] MEDS: HumaLOG 300 UNITS/3 ML VIAL SC PRN ×2 (12:28→17:41)
--- NOTE | 2018-06-13 20:03 | PRG ---
DATE OF SERVICE: 06/13/2018 SUBJECTIVE: The patient denies any fever or chills. She has some discomfort in the lower extremity. No fever, chills, nausea, vomiting, diarrhea reported. PHYSICAL EXAMINATION: VITAL SIGNS: Temperature 97.5, pulse rate of 67, respirations 18, blood pressure 152/65. GENERAL: A 77-year-old female, in no apparent distress. LUNGS: Clear to auscultation bilaterally. HEART: S1, S2 present. ABDOMEN: Soft. Bowel sounds present. EXTREMITIES: Bilateral lower extremity dressing noted. DIAGNOSTIC DATA: 1. CBC showed WBC 5.9 with hemoglobin 11, hematocrit 35.9, platelets 224,000. 2. Creatinine 1.82 from 2.21. Sodium 142, potassium 4.8, BUN 71. Blood culture 1 out of 2 is negat suzie. 3. Bacterial culture is consistent with presumptive Pseudomonas. 4. X-ray of the foot by my review was negative for osteomyelitis. IMPRESSION: 1. Infected chronic venous ulceration, suspected Pseudomonas. The patient was evaluated by General Surgery, Dr. Rosenberg. Dr. Rosenberg recommended to continue antibiotics. We can eventually transition t o oral antibiotics as outpatient. I discussed with Dr. Best after discussion with Dr. Rosenberg. Dr. Best recommended to continue current IV antibiotics for now. Further recommendation based on the cu ltures. 2. Diabetes mellitus type 2. DISCHARGE MEDICATIONS: 1. We will continue moderate sliding scale. We will change Lantus to 15 units b.i.d. from 25 units b.i.d. 2. Multiple antibiotic allergies. 3. Acute kidney injury on chronic kidney disease stage 3. Improving. We will discontinue IV fluids . Torsemide and metolazone are currently on hold. 4. Hypertension. We will resume carvedilol. 5. Gastroesophageal reflux disease. We will resume home PPIs. 6. Deep venous thrombosis prophylaxis with Lovenox. Plan of care was discussed with the patient. She stated understanding.
[2018-06-13] MEDS: Carvedilol 6.25 MG TAB PO SCH (20:49)
[2018-06-13] MEDS: Insulin Glargine 15 UNITS in Pre-Filled Syringe 1 EACH SC SCH (20:50)
[2018-06-13] MEDS: Enoxaparin Sodium 30 MG/0.3 ML SYRINGE SC SCH (20:50)
[2018-06-13] MEDS: Calcium Carbonate 500 MG ChewTAB PO PRN (21:01)
[2018-06-14] MEDS: Aztreonam 1 GM in Sodium Chloride 0.9% 100 ML IVPB SCH ×3 (03:46→19:50)
[2018-06-14] MEDS: Linezolid 600 MG in Premix Bag 1 BAG IVPB SCH ×2 (05:16→17:52)
[2018-06-14] MEDS: Calcitriol 0.25 MCG CAP PO SCH (09:09)
[2018-06-14] MEDS: Saccharomyces boulardii 250 MG CAP PO SCH (09:09)
[2018-06-14] MEDS: Carvedilol 6.25 MG TAB PO SCH ×2 (09:09→19:49)
[2018-06-14] MEDS: Ezetimibe 10 MG TAB PO SCH (09:09)
[2018-06-14] MEDS: Insulin Glargine 15 UNITS in Pre-Filled Syringe 1 EACH SC SCH ×2 (09:10→19:50)
--- NOTE | 2018-06-14 15:55 | PDOC.PN ---
- Subjective Encounter Start Date: 06/14/18 Encounter Start Time: 15:53 Ms. Echevarria was seen today in follow-up of cellulitis of the lower extremities. She believes there is less drainage from the legs,and says the redness is "always there". - Objective Resuscitation Status: Resuscitation Status DNR:Do Not Resuscitate MAR Reviewed: Yes Vital Signs & Weight: Vital Signs (12 hours) Temp Pulse Resp BP BP Pulse Ox 06/14/18 11:29 97.2 F L 65 16 150/69 H 98 06/14/18 09:09 172/77 H 06/14/18 08:00 98 06/14/18 07:35 97.3 F L 74 20 172/77 H 97 06/14/18 07:07 100 Weight Admit Weight 245 lb Weight 245 lb I&O: 06/13/18 06/14/18 06/15/18 06:59 06:59 06:59 Intake Total 540 2289 Balance 540 2289 Result Diagrams: 06/13/18 04:12 06/13/18 04:12 Additional Labs: Accuchecks 06/14/18 06/14/18 06/13/18 11:33 04:31 19:26 POC Glucose 186 H 98 362 H 06/13/18 16:17 POC Glucose 301 H Phys Exam - Physical Examination HEENT: PERRLA Respiratory: no wheezing, no rales, no rhonchi, clear to auscultation bilateral Cardiovascular: RRR, no significant murmur, no rub no gallop Gastrointestinal: soft, non-tender, no distention, positive bowel sounds Musculoskeletal: edema present + 2+ pitting edema, and erythema of both lower eztremities Neurological: non-focal Dx/Plan (1) Cellulitis of both lower extremities Code(s): L03.115 - CELLULITIS OF RIGHT LOWER LIMB; L03.116 - CELLULITIS OF LEFT LOWER LIMB Status: Acute (2) Chronic venous stasis dermatitis of both lower extremities Code(s): I87.2 - VENOUS INSUFFICIENCY (CHRONIC) (PERIPHERAL) Status: Chronic (3) CKD (chronic kidney disease) stage 4, GFR 15-29 ml/min Code(s): N18.4 - CHRONIC KIDNEY DISEASE, STAGE 4 (SEVERE) Status: Chronic (4) Hypertension Code(s): I10 - ESSENTIAL (PRIMARY) HYPERTENSION Status: Chronic (5) Diabetes mellitus type 2 in obese Code(s): E11.69 - TYPE 2 DIABETES MELLITUS WITH OTHER SPECIFIED COMPLICATION; E66.9 - OBESITY, UNSPECIFIED Status: Chronic - Plan * Cellulitis of both lower extremities- wound culture is growing Pseudomonas- it is garcia-sensitive, however, Ms. Echevarria has multiple antibiotic allergies- Discussed with Dr. Best. Will Continue Aztreonam for now through the weekend. Continue local woundcare * HTN- is not optimally controlled- will monitor her on the current medications , and determine if adjustments are needed * CKD stage 4- stable * DM- blood glucose is stable. * COPD- stable
[2018-06-14] MEDS ORDERED: Torsemide 20 MG TAB PO SCH (18:30)
[2018-06-14] MEDS: Acetaminophen 325 MG TAB PO PRN (19:49)
[2018-06-14] MEDS: Enoxaparin Sodium 30 MG/0.3 ML SYRINGE SC SCH (19:50)
[2018-06-14] MEDS: Calcium Carbonate 500 MG ChewTAB PO PRN (19:56)
--- NOTE | 2018-06-14 21:24 | CON ---
DATE OF CONSULTATION: 06/14/2018 HISTORY OF PRESENT ILLNESS: A 77-year-old who has a history of peripheral vascular disease and venous insufficiency with chronic obstructive pulmonary disease and prior smoking, on home O2, also type 2 diabetes mellitus who has had chronic problems in her lower extremities. I have seen her in the past for ulcers in the feet. She has not been to my office since 2014. For the past 2 years has been seen by Dr. Aguero for management of stasis dermatitis, chronic ulcerations in the lower extremities with somewhat refractory course. She came to this hospital this time because of discharge from lower extremity ulcerations and worsening pain in the lower extremities. Dr. Aguero sent her to the emergency room and the main concern was infection of the lower extremities with possible cellulitis. Patient has pain, particularly in the right leg, but also on the left. She had some drainage from a small orifice in the bottom aspect of the mid foot with moderate pain, some dyspnea. No headaches, visual symptoms change. No sore throat, odynophagia, dysphagia. No chest pain, no abdominal pain or diarrhea, no genitourinary symptoms. PAST MEDICAL HISTORY: COPD, prior smoking, home O2. Peripheral arterial disease with significant PVD, renal insufficiency, chronic venous stasis. Ulcers in the legs, probably from mixed arterial/venous insufficiency. Hypertension, CARL, obesity, hypertension, renal insufficiency, prior subdural hematoma, coronary artery disease, diastolic congestive heart failure. PAST SURGICAL HISTORY: Cholecystectomy, , foot infection debridement, appendectomy, cholecystectomy. SOCIAL HISTORY: Lives by herself with family members and helper, former smoker. FAMILY HISTORY: Noncontributory. CURRENT MEDICATIONS: Tylenol, Maalox, DuoNeb, aspirin, aztreonam, Tessalon, Dulcolax, Rocaltrol, Tums, Coreg, clonidine, Catapres, dextrose, Lovenox, Zetia , glucagon, Robitussin, insulin, linezolid, Nitrostat, Florastor, torsemide. PHYSICAL EXAMINATION: VITAL SIGNS: Patient's T-max 97.8, blood pressure 160/60, pulse 64, respiration 18, O2 sat 99%. SKIN: Remarkable for areas of erythema with irregular ulceration and quite widespread area in the lower leg, a segment of about 10 cm in length and is distributed around the ankle and distal leg. Other areas of ulceration show some epithelialization from the probably associated with the wound care. The ulcers have dark red base, some areas of purplish discoloration much in terms of undermining. The largest ulcer in the anterior left leg that measures about 11 cm in length x 8 cm in width. She has small ulcers too. Shallower abrasions in the dorsal aspect of the left foot with some element of onychodystrophy. There is a punched out ulcer at the base of the left fifth MPJ skin site. I could not probe any bone when examining this ulcer. In the right leg, there is an irregular ulcer which is about 6 x 8 cm with red scab at the base and there is intertriginous maceration and erythema with some scaling over the dorsum of the right foot. There are some cyanotic color changes at the 1st through 4th digits right foot. At the base of the right foot, mid foot region, lateral aspect, there is a deeper ulceration with surrounding callus formation, again I could not probe any bone by examining this area with stick. The patient has no lymphadenopathy. HEENT: Ocular movements are conjugate. She has only few remaining teeth. NECK: Supple, jugular vein distention. LUNGS: With slightly diminished breath sounds, markedly diminished heart sounds , regular rate without obvious murmurs. ABDOMEN: Soft, mildly distended, but not tender. No ascites. No bladder distention. Osteoarthrosis in the knees and ankles. EXTREMITIES: Pulses not palpable in dorsalis pedis. Cap refill was delayed in lower extremities. NEUROLOGIC: She is oriented, follows commands. LABORATORY: Sodium 138, creatinine 2.21, glucose 305. Normal liver profile, albumin 3.2, globulin 4.3. White cell count 5.5, hemoglobin 12, platelets 227 with 70% neutrophils, 14% lymphocytes. Last urinalysis is from March with greater than 50 WBCs. Cultures from the leg swab from the surface ulcers with Pseudomonas aeruginosa with a broad susceptibility profile. Previous cultures from similar sites of last year with Pseudomonas aeruginosa, Stenotrophomonas maltophilia and Pseudomonas stutzeri. Reports include a foot x-ray with chronic degenerative changes but no evidence of bony destruction. ASSESSMENT: Chronic obstructive pulmonary disease, congestive heart failure with diastolic dysfunction, peripheral vascular disease and venous insufficiency , chronic stasis dermatitis and chronic ulcers in lower extremities showed probably a mixture material and venous insufficiency. Those changes in the legs are have been quite refractory to treatment. She does not appear to have any evidence to suggest osteomyelitis of the feet at this time. The ulcers does not seem to penetrate deeper tissues upon examination by probing. She might have some element of cellulitis associated with it and I think it is worth a while to give a few days of broad spectrum antimicrobial coverage. Azactam and linezolid have been chosen in the face of her multiple drug allergy history. Eventually, she can be transitioned to home or better to a skilled place where she can have proper wound care and elevation of extremities. She probably does not keep the legs elevated in home setting. I believe that this is in part responsible for the refractoriness of the clinical course of the leg ulcers. The other component is the inability to tolerate compressive dressings due to pain from the arterial disease. When there is a combination of arterial and venous insufficiency, naturally those patients advertently to manage because of the inability to tolerate with compressive dressings which is so important in the management of venous insufficiency associated ulcerations. ALOK
[2018-06-15] MEDS: Aztreonam 1 GM in Sodium Chloride 0.9% 100 ML IVPB SCH ×3 (03:49→20:03)
[2018-06-15] MEDS: Linezolid 600 MG in Premix Bag 1 BAG IVPB SCH ×2 (05:32→17:53)
[2018-06-15] MEDS: Saccharomyces boulardii 250 MG CAP PO SCH (08:42)
[2018-06-15] MEDS: Calcitriol 0.25 MCG CAP PO SCH (08:42)
[2018-06-15] MEDS: Ezetimibe 10 MG TAB PO SCH (08:42)
[2018-06-15] MEDS: Torsemide 20 MG TAB PO SCH (08:43)
[2018-06-15] MEDS: Carvedilol 6.25 MG TAB PO SCH ×2 (08:43→20:05)
[2018-06-15] MEDS: Insulin Glargine 15 UNITS in Pre-Filled Syringe 1 EACH SC SCH ×2 (08:52→20:04)
--- NOTE | 2018-06-15 14:20 | PRG ---
DATE OF SERVICE: 06/15/2018 SUBJECTIVE: Ms. Echevarria is sitting by the bedside. She does not have itching in the legs, mostly ju st mild tenderness. No respiratory symptoms or abdominal pain. OBJECTIVE: VITAL SIGNS: Normal except for mild elevation of systolic blood pressure. SKIN: Exam shows the areas consistent with stasis dermatitis, very symmetric distribution in the low er extremities. LUNGS: With basilar inspiratory crackles. HEART: S1, S2, regular rate. ABDOMEN: Soft, moderate, distention. LABORATORY DATA: White cell count 5.9, hemoglobin 11, platelets 224. Creatinine is 1.82, which is a bout her baseline. Microbiology with pruriginous from skin swab, lower extremities. ASSESSMENT: Chronic obstructive pulmonary disease, congestive heart failure, diastolic dysfunction, peripheral vascular disease, and venous insufficiency with chronic quite refractory ulcers in the low er extremities with stasis dermatitis. DISCUSSION: The patient is intolerant to compressive dressings and she has numerous reported drug hy persensitivity reactions in the past. Ideally, one would like to keep her on a low high-dose penicil milad VK 250 mg twice daily, and I wonder if she would not be able to tolerate this. If that is the ca se, then I would probably transfer her to that regimen for prophylaxis. We will go ahead and discont inue her IV antimicrobials and start this low-dose penicillin VK for prophylaxis, and while she is in the hospital for observation, then continue the outpatient setting. In addition to that, she will n eed continuation of dressing of the lower extremities and elevation of the extremities. Ideally, one would like to attempt sometime down the road some form of compressive dressing.
[2018-06-15] MEDS ORDERED: diphenhydrAMINE 25 MG CAP PO PRN (15:21)
--- NOTE | 2018-06-15 15:38 | PDOC.PN ---
- Subjective Encounter Start Date: 06/15/18 Encounter Start Time: 15:33 Ms. Echevarria was seen today in follow-up of lower exrtemity cellulitis. She does not have any new complaints. She says her legs are about the same as yesterday. - Objective Resuscitation Status: Resuscitation Status DNR:Do Not Resuscitate MAR Reviewed: Yes Vital Signs & Weight: Vital Signs (12 hours) Temp Pulse Resp BP BP Pulse Ox 06/15/18 13:53 100 06/15/18 13:28 99 06/15/18 11:12 97.2 F L 66 16 174/69 H 100 06/15/18 08:43 169/73 H 06/15/18 08:00 94 L 06/15/18 07:17 96.3 F L 65 18 169/73 H 94 L Weight Admit Weight 245 lb Weight 245 lb I&O: 06/14/18 06/15/18 06/16/18 06:59 06:59 06:59 Intake Total 2289 628 Balance 2289 628 Result Diagrams: 06/13/18 04:12 06/13/18 04:12 Additional Labs: Accuchecks 06/15/18 06/15/18 06/14/18 11:15 04:22 19:20 POC Glucose 141 H 208 H 270 H 06/14/18 16:42 POC Glucose 177 H Phys Exam - Physical Examination HEENT: PERRLA Respiratory: no wheezing, no rales, no rhonchi, clear to auscultation bilateral Cardiovascular: RRR, no significant murmur, no rub Gastrointestinal: soft, non-tender, positive bowel sounds Musculoskeletal: edema present erythema, has decreased some, and less weeping Dx/Plan (1) Cellulitis of both lower extremities Code(s): L03.115 - CELLULITIS OF RIGHT LOWER LIMB; L03.116 - CELLULITIS OF LEFT LOWER LIMB Status: Acute (2) Chronic venous stasis dermatitis of both lower extremities Code(s): I87.2 - VENOUS INSUFFICIENCY (CHRONIC) (PERIPHERAL) Status: Chronic (3) CKD (chronic kidney disease) stage 4, GFR 15-29 ml/min Code(s): N18.4 - CHRONIC KIDNEY DISEASE, STAGE 4 (SEVERE) Status: Chronic (4) Hypertension Code(s): I10 - ESSENTIAL (PRIMARY) HYPERTENSION Status: Chronic (5) Diabetes mellitus type 2 in obese Code(s): E11.69 - TYPE 2 DIABETES MELLITUS WITH OTHER SPECIFIED COMPLICATION; E66.9 - OBESITY, UNSPECIFIED Status: Chronic - Plan * Cellulitis of both lower extremities- continue Azetreonam, and discussed with Dr. Best- will give a trial of PCN VK * Chronic kidney disease- will re-check her creatinine, as Torsemide was re- started * HTN - blood pressure is slightly elevated- will continue to monitor * DM- blood glucose is stable * I spoke with her daughter who informs me that the patient was being evaluated for Rehab placement prior to being admitted into the hospital, and would like to investigate this as a discharge option.
[2018-06-15] MEDS: diphenhydrAMINE 25 MG CAP PO PRN ×2 (17:35→20:00)
[2018-06-15] MEDS: Penicillin V Potassium 250 MG TAB PO SCH ×2 (18:01→20:15)
[2018-06-15] MEDS: Enoxaparin Sodium 30 MG/0.3 ML SYRINGE SC SCH (20:06)
[2018-06-16] MEDS: Aztreonam 1 GM in Sodium Chloride 0.9% 100 ML IVPB SCH ×2 (04:00→12:02)
[2018-06-16 04:48] LABS: #Eosinphils 0.6 thou/uL (0.0-0.7); #Monocytes 0.4 thou/uL (0.11-0.59); #Neutrophils 3.2 thou/uL (1.40-6.50); %Basophils 0.8 % (0.0-1.0); %Eosinophils 11.8 % (0.0-10.0); %Lymphocytes 18.3 % (21.0-51.0); %Neutrophils 61.1 % (42.0-75.0); Hemoglobin 10.8 g/dL (12.0-16.0); Mean Corpuscular HGB CONC 30.7 g/dL (32.0-36.0); Mean Corpuscular Hemoglobin 27.4 pg (27.0-31.0); Mean Corpuscular Volume 89.2 fL (78.0-98.0); Mean Platelet Volume 7.5 fL (7.4-10.4); Platelet Count 204 thou/uL (130-400); RBC Distribution Width 13.5 % (11.5-14.5); Red Blood Cell (RBC) Count 3.93 mill/uL (4.20-5.40); White Blood Cell (WBC) Count 5.3 thou/uL (4.8-10.8)
[2018-06-16 05:01] LABS: Anion Gap 11 mmol/L (10-20); BUN (Urea Nitrogen) 56 mg/dL (9.8-20.1); Calc. Creatinine Clearance 41 mL/min (70-130); Calcium 9.3 mg/dL (7.8-10.44); Carbon Dioxide 28 mmol/L (23-31); Chloride 104 mmol/L (98-107); Estimated GFR-MDRD 24; Glucose 154 mg/dL (83-110); Sodium 138 mmol/L (136-145)
[2018-06-16] MEDS: Linezolid 600 MG in Premix Bag 1 BAG IVPB SCH (05:16)
[2018-06-16] MEDS: Insulin Glargine 15 UNITS in Pre-Filled Syringe 1 EACH SC SCH (08:51)
[2018-06-16] MEDS: diphenhydrAMINE 25 MG CAP PO PRN ×2 (08:51→12:02)
[2018-06-16] MEDS: Torsemide 20 MG TAB PO SCH (08:52)
[2018-06-16] MEDS: Carvedilol 6.25 MG TAB PO SCH (08:52)
[2018-06-16] MEDS: Ezetimibe 10 MG TAB PO SCH (08:52)
[2018-06-16] MEDS: Saccharomyces boulardii 250 MG CAP PO SCH (08:52)
[2018-06-16] MEDS: Calcitriol 0.25 MCG CAP PO SCH (08:52)
[2018-06-16] MEDS: Penicillin V Potassium 250 MG TAB PO SCH ×3 (09:25→17:10)
--- NOTE | 2018-06-16 14:31 | PDOC.PN ---
- Subjective Encounter Start Date: 06/16/18 Encounter Start Time: 14:29 Ms. Echevarria was seen today in follow-up of cellulitis. She does not have any complaints today.She would like to go home. - Objective Resuscitation Status: Resuscitation Status DNR:Do Not Resuscitate PATRICIA Reviewed: Yes Vital Signs & Weight: Vital Signs (12 hours) Temp Pulse Resp BP BP Pulse Ox Pulse Ox 06/16/18 10:03 93 L 06/16/18 09:31 97.3 F L 78 20 151/74 H 98 06/16/18 08:52 151/74 H 06/16/18 08:00 96 Weight Admit Weight 245 lb Weight 245 lb I&O: 06/15/18 06/16/18 06/17/18 06:59 06:59 06:59 Intake Total 628 1102 Balance 628 1102 Result Diagrams: 06/16/18 04:13 06/16/18 04:13 Additional Labs: Accuchecks 06/16/18 06/16/18 06/15/18 11:32 04:20 19:49 POC Glucose 141 H 155 H 188 H 06/15/18 16:12 POC Glucose 115 H Phys Exam - Physical Examination HEENT: PERRLA Respiratory: no wheezing, no rales, no rhonchi, clear to auscultation bilateral Cardiovascular: RRR, no significant murmur, no rub Gastrointestinal: soft, non-tender, no distention, positive bowel sounds Musculoskeletal: edema present 2+ pittine edema, erythema of both legs, Neurological: non-focal Dx/Plan (1) Cellulitis of both lower extremities Code(s): L03.115 - CELLULITIS OF RIGHT LOWER LIMB; L03.116 - CELLULITIS OF LEFT LOWER LIMB Status: Acute (2) Chronic venous stasis dermatitis of both lower extremities Code(s): I87.2 - VENOUS INSUFFICIENCY (CHRONIC) (PERIPHERAL) Status: Chronic (3) CKD (chronic kidney disease) stage 4, GFR 15-29 ml/min Code(s): N18.4 - CHRONIC KIDNEY DISEASE, STAGE 4 (SEVERE) Status: Chronic (4) Hypertension Code(s): I10 - ESSENTIAL (PRIMARY) HYPERTENSION Status: Chronic (5) Diabetes mellitus type 2 in obese Code(s): E11.69 - TYPE 2 DIABETES MELLITUS WITH OTHER SPECIFIED COMPLICATION; E66.9 - OBESITY, UNSPECIFIED Status: Chronic - Plan * Cellulitis of both lower extremities- will discontinue Aztreonam, and continue PCN VK. * She is stable for discharge home
[2018-06-16] MEDS ORDERED: diphenhydrAMINE 25 MG CAP PO PRN (16:44)
[2018-06-16 17:25] VITALS: BP 161/66; TEMP 97.5
--- NOTE | 2018-06-17 00:38 | DIS ---
PRIMARY CARE PHYSICIAN: KHUSHBU Ram DATE OF ADMISSION: 06/12/2018 DATE OF DISCHARGE: 06/16/2018 DISCHARGE DISPOSITION: Home. DISCHARGE DIAGNOSES: 1. Infected bilateral lower extremity cellulitis. 2. Chronic venous stasis dermatitis. 3. Diabetes mellitus, type 2. 4. Morbid obesity. 5. Chronic respiratory failure secondary to chronic obstructive pulmonary disease. 6. Coronary artery disease. DISCHARGE MEDICATIONS: Include Penicillin VK 250 mg 1 p.o. 4 times a day, Florastor 250 mg daily, To rsemide 20 mg daily, potassium chloride 10 mEq extended release daily, omeprazole 40 mg daily, metola zone 2.5 mg on Saturday, Saturday and Saturday, Levemir 15 units subcu twice a day, NovoLog 15 units t.i .d. with meals, Zetia 10 mg daily, carvedilol 12.5 mg twice a day, calcitriol 0.25 mcg daily, and asp irin 81 mg a day. PROCEDURES DONE DURING THE ADMISSION: The patient had an x-ray of her foot showing some area of soft tissue ulceration, some osteoarthritic changes, no fractures were identified. CODE STATUS: DNR. ALLERGIES: AMOXICILLIN, ATORVASTATIN, CARBAPENEMS, CIPROFLOXACIN, LEVOFLOXACIN, VANCOMYCIN, FLAGYL, TRIMETHOPRIM, NITROFURANTOIN, SULFAMETHOXAZOLE, CLAVULANIC ACID, CLINDAMYCIN, CODEINE, ESTROGENS, IMI DAZOLE. HOSPITAL COURSE: Ms. Echevarria is a pleasant 77-year-old female who was brought into the emergency [facility] after she was noted to have increasing erythema and drainage from chronic lower extremity sores kimberly t she has had for several years actually. She was brought in and started on broad-spectrum IV antibi otics. Cultures from the wound grew Pseudomonas and she was placed on aztreonam for Pseudomonas cove rage. Dr. Best was consulted from Infectious Disease as he has been familiar with the patient in th e past. He recommended discontinuation of the current IV antibiotics and then transitioning her to a n oral penicillin for chronic suppressive therapy. She has an allergy listed to PENICILLIN; however, with further discussion with the patient, she says that this allergy was attributed to her because h er mother had a severe allergy to PENICILLIN and she is not sure if she is actually allergic to penic illin or not. She was started on penicillin VK while in the hospital and had no reaction to it and a s such she will be discharged to home on chronic suppressive therapy with penicillin VK. She was als o instructed on the need for elevation of her legs as well as compression stocking. She was offered a stay in rehab, but she declined. Therefore, she will be discharged home with home health and to kieranw up with Dr. Esqueda in approximately one week and also with her primary care physician as bart mariano
== END 2018-06-16 17:15 | disposition home or self-care (01) | DRG 300 ==
LOC: ERS 11:12 → INTOOBSV 16:20 → T4-B 16:20 → OBSVTOIN 16:20 → UNDODISOB 06-16 15:42
PROVIDERS: ADMIT Internal Medicine; ATTEND Internal Medicine
DX: I87.2 Venous insufficiency (chronic) (peripheral) (principal); L03.116 Cellulitis of left lower limb; L03.115 Cellulitis of right lower limb; J96.10 Chronic respiratory failure, unspecified whether with hypoxia or hypercapnia; I13.0 Hypertensive heart and chronic kidney disease with heart failure and stage 1 through stage 4 chronic kidney disease, or unspecified chronic kidney disease; I50.32 Chronic diastolic (congestive) heart failure; N18.4 Chronic kidney disease, stage 4 (severe); J44.9 Chronic obstructive pulmonary disease, unspecified; Z99.81 Dependence on supplemental oxygen; E11.51 Type 2 diabetes mellitus with diabetic peripheral angiopathy without gangrene; E66.01 Morbid (severe) obesity due to excess calories; Z68.37 Body mass index [BMI] 37.0-37.9, adult; E88.81 Metabolic syndrome and other insulin resistance; I25.10 Atherosclerotic heart disease of native coronary artery without angina pectoris; E11.65 Type 2 diabetes mellitus with hyperglycemia; G47.33 Obstructive sleep apnea (adult) (pediatric); E11.22 Type 2 diabetes mellitus with diabetic chronic kidney disease; Z66 Do not resuscitate; B96.5 Pseudomonas (aeruginosa) (mallei) (pseudomallei) as the cause of diseases classified elsewhere; E11.622 Type 2 diabetes mellitus with other skin ulcer; L98.499 Non-pressure chronic ulcer of skin of other sites with unspecified severity; Z79.4 Long term (current) use of insulin; I25.2 Old myocardial infarction; Z90.49 Acquired absence of other specified parts of digestive tract
CPT/HCPCS: 36415; 36416; 80048; 80053; 85025; 87040; 87070; 87077; 87186; 87205; 99285; A4216; G8987-GO-CK; G8988-GO-CI; J1650; J2020; J3490; J7050

== ENCOUNTER 2018-06-26 08:42 | Outpatient (CLI) | payer MEDICARE, OTHER ==
--- NOTE | 2018-06-26 10:35 | PRG ---
DATE OF SERVICE: 06/26/2018 HISTORY: Ms. Lexie Echevarria is a very pleasant 77-year-old accompanied by her [id number] who presents to the [facility] for evaluation of an ulceration of the plantar surface of the right lateral midfoot. The patient also has multiple venous ulcerations of the right and left lower legs. Since the patient's last visit to the Wound Center on 05/08/2018, Ms. Echevarria was admitted to [facility] for treatment with IV antibiotics for the venous ulcerations of her right and left lower legs. During her hospital stay, Ms. Echevarria was seen in consultation by Dr. Otoniel Best of Infectious Diseases in addition to Dr. Ricki Rosenberg of General Surgery. The patient is no w taking chronic suppressive therapy with Pen-Vee K as per Dr. Best. The patient was offered a stay in rehabilitation, but declined. PHYSICAL EXAMINATION: VITAL SIGNS: Temperature 97.5, pulse 75, respirations 20, blood pressure 155/71. Accu-Chek 127. EXTREMITIES: Multiple venous ulcerations of the right and left lower legs are still present. No pur ulent drainage is associated with any of the wounds. The ulceration of the plantar surface of the ri t lateral midfoot measures approximately 1.6 x 2.0 cm. Granulation tissue is present within the wo und margins. Necrotic and nonviable tissue present within the wound margins was debrided with an exc isional full-thickness debridement. Callus undermining and desiccated tissue at the periphery of the wound were excised with the use of scissors. No purulent drainage is associated with the wound. No erythema of the skin surrounding the wound is present. No maceration of the skin of the periwound i s noted. Granulation tissue is present within the margins of the venous ulcerations of the right and left lower legs. Erythema of the right and left lower legs is present on today's exam consistent wi th stasis changes. No maceration of the skin of the right or left lower leg is noted. Edema of the right and left lower extremities is present on exam today. Circumferences of the right lower extremi ty at the ankle, calf and knee are 27 cm, 29.5 cm, and 33 cm. Circumferences of the left lower extre mity at the ankle, calf and knee are 25 cm, 29.5 cm, and 36 cm. ASSESSMENT AND PLAN: 1. Plantar ulceration of right lateral foot. As stated above, the patient also has multiple venous ulcerations of the right and left lower legs. For the plantar ulceration of the right lateral foot, the patient is to receive dressing changes of Multidex powder, 4 x 4s, foam, ABD, and Kerlix on a agnieszka ly basis after cleansing and irrigation with the assistance of Home Health. For the venous ulceratio ns, the patient is to receive dressing changes of Multidex powder, ABDs and Kerlix also on a daily ba sis after cleansing and irrigation with the assistance of Home Health. I will see Ms. Echevarria again in 4 weeks. The patient is to continue Pen-Vee K as per Dr. Otoniel Best of Infectious Diseases. 2. Lymphedema tarda. Arrangements will be made for the initiation of in-home lymphedema therapy wit h a lymphedema pump. The patient has continued lymphedema despite elevation and treatment with compr ession. 3. Diabetes mellitus. The patient's Accu-Chek in clinic today is 127. The patient has been told th at for optimal wound healing, her blood glucoses should remain below 150. 4. Coronary artery disease. 5. Hypertension. 6. History of peripheral vascular disease. 7. Renal insufficiency. 8. Osteoarthritis. 9. Obstructive sleep apnea. 10. Chronic obstructive pulmonary disease.
[2018-06-26] MEDS ORDERED: Sodium Chloride 0.9% 15 ML NEB ONE (12:00)
== END 2018-06-26 08:43 | disposition home or self-care (01) ==
LOC: WCC 08:42
PROVIDERS: ATTEND Family Medicine
DX: E11.621 Type 2 diabetes mellitus with foot ulcer (principal); L97.419 Non-pressure chronic ulcer of right heel and midfoot with unspecified severity; I89.0 Lymphedema, not elsewhere classified; I25.10 Atherosclerotic heart disease of native coronary artery without angina pectoris; I10 Essential (primary) hypertension; N28.9 Disorder of kidney and ureter, unspecified; M19.90 Unspecified osteoarthritis, unspecified site; G47.33 Obstructive sleep apnea (adult) (pediatric); J44.9 Chronic obstructive pulmonary disease, unspecified; Z86.79 Personal history of other diseases of the circulatory system
CPT/HCPCS: A4218

== ENCOUNTER 2018-08-07 08:07 | Outpatient (CLI) | payer MEDICARE, MEDICAID ==
--- NOTE | 2018-08-07 09:01 | PRG ---
DATE OF SERVICE: 08/07/2018 HISTORY: Ms. Lexie Echevarria is a very pleasant 77-year-old accompanied by her [id number] who presents to the [facility] Center for evaluation of an ulceration of the plantar surface of the right lateral midfoot. The patient also has multiple venous ulcerations of the right and left lower legs. The patient has been receiving dressing changes of Multidex powder for the ulcerations of her right and left lower legs and for the ulceration of the plantar surface of the right lateral foot. The pat ient states she was placed on torsemide by Dr. Cole and the edema of her right and left lower extre mities has markedly decreased. The patient is in the process of acquiring a pneumatic pump. PHYSICAL EXAMINATION: VITAL SIGNS: Temperature 97.5, pulse 97, respirations 19, blood pressure 177/76, Accu-Chek 130. EXTREMITIES: Multiple venous ulcerations of the right and left lower legs are still present. No pur ulent drainage is associated with any of the wounds. The ulceration of the plantar surface of the ri ght lateral midfoot measures approximately 1.4 x 1.4 cm. Granulation tissue is present within the wo und margins. Necrotic and nonviable tissue present within the wound margins was debrided with an exc isional full-thickness debridement with the use of a curette. Callus undermining and desiccated tiss ue at the periphery of the wound were excised with the use of scissors. No purulent drainage is asso ciated with the wound. No erythema of the skin surrounding the wound is present. No maceration of t he skin of the periwound is noted. Granulation tissue is present within the margins of the venous ul cerations of the right and left lower legs. Erythema and hyperpigmentation of the right and left low er legs is present on exam today consistent with stasis changes. No maceration of the skin of the ri ght or left lower leg is noted. Edema of the right and left lower extremities is present on today's exam. Circumferences of the right lower extremity at the ankle, calf and knee are 27.5 cm, 36.5 cm a nd 41 cm. Circumferences of the left lower extremity at the ankle, calf and knee are 26 cm, 36 cm an d 42.5 cm. ASSESSMENT AND PLAN: 1. Plantar ulceration of right lateral foot. As stated above, the patient also has multiple venous ulcerations of the right and left lower legs. For the plantar ulceration of the right lateral foot, the patient is to receive dressing changes of Multidex powder, 4x4s, foam, an ABD and Kerlix on a agnieszka ly basis after cleansing and irrigation with the assistance of Home Health. For the venous ulceratio ns, the patient is to receive dressing changes of Multidex powder, ABDs and Kerlix also on a daily ba sis after cleansing and irrigation with the assistance of Home Health. I will see Ms. Echevarria again in 4 weeks. The patient is to continue Pen-Vee K as per Dr. Otoniel Best of Infectious Diseases. 2. Lymphedema tarda stage 2. Arrangements will continue for the initiation of in-home lymphedema th erapy with a lymphedema pump. The patient continues to have lymphedema despite elevation and treatme nt with compression. 3. Diabetes mellitus. The patient's Accu-Chek in clinic today is 130. The patient has been reminde d that for optimal wound healing, her blood glucoses should remain below 150. 4. Coronary artery disease. 5. Hypertension. 6. History of peripheral vascular disease. 7. Renal insufficiency. 8. Osteoarthritis. 9. Obstructive sleep apnea. 10. Chronic obstructive pulmonary disease.
[2018-08-07] MEDS ORDERED: Lidocaine 2% Jelly 30 GM TUBE ONE (18:00)
[2018-08-07] MEDS ORDERED: Sodium Chloride 0.9% 15 ML NEB ONE (18:00)
== END 2018-08-07 08:08 | disposition home or self-care (01) ==
LOC: WCC 08:07
PROVIDERS: ATTEND Family Medicine
DX: E11.621 Type 2 diabetes mellitus with foot ulcer (principal); L97.519 Non-pressure chronic ulcer of other part of right foot with unspecified severity; I89.0 Lymphedema, not elsewhere classified; I25.10 Atherosclerotic heart disease of native coronary artery without angina pectoris; I10 Essential (primary) hypertension; M19.90 Unspecified osteoarthritis, unspecified site; J44.9 Chronic obstructive pulmonary disease, unspecified; G47.33 Obstructive sleep apnea (adult) (pediatric)
CPT/HCPCS: 11042; A4218

== ENCOUNTER 2018-08-16 17:31 | Inpatient (IN) | payer MEDICARE, MEDICAID ==
[2018-08-16] MEDS ORDERED: Fentanyl 100 MCG/2 ML VIAL SLOW IVP SCH (18:15)
[2018-08-16 18:16] LABS: Hemoglobin 11.8 g/dL (12.0-16.0); Mean Corpuscular HGB CONC 30.5 g/dL (32.0-36.0); Mean Corpuscular Hemoglobin 27.3 pg (27.0-31.0); Mean Corpuscular Volume 89.5 fL (78.0-98.0); Mean Platelet Volume 8.2 fL (7.4-10.4); Platelet Count 219 thou/uL (130-400); RBC Distribution Width 14.3 % (11.5-14.5); Red Blood Cell (RBC) Count 4.31 mill/uL (4.20-5.40)
[2018-08-16 18:31] LABS: ALT (SGPT) 42 U/L (8-55); AST (SGOT) 90 U/L (5-34); Albumin 3.2 g/dL (3.4-4.8); Alkaline Phosphatase 113 U/L (40-150); Anion Gap 18 mmol/L (10-20); BUN (Urea Nitrogen) 67 mg/dL (9.8-20.1); Bilirubin, Total 0.3 mg/dL (0.2-1.2); CK (CPK) 2003 U/L (29-168); Calc. Creatinine Clearance 0 mL/min (70-130); Calcium 9.9 mg/dL (7.8-10.44); Carbon Dioxide 19 mmol/L (23-31); Chloride 104 mmol/L (98-107); Estimated GFR-MDRD 19; Globulin 4.6 g/dL (2.4-3.5); Glucose 498 mg/dL (83-110); Lipase 5 U/L (8-78); Magnesium 1.8 mg/dL (1.6-2.6); Potassium 4.7 mmol/L (3.5-5.1); Protein, Total 7.8 g/dL (6.0-8.3); Sodium 136 mmol/L (136-145)
[2018-08-16 18:36] LABS: Band 14 % (5-11); Lymphocytes 1 % (21-51); MDiff Complete? YES; Monocytes 1 % (0-10); Neutrophil 84 % (42-75); PLT Morphology Comment Appears Adequate
[2018-08-16 18:40] LABS: Bilirubin Small (Negative); Blood, Urine Small (Negative); Clarity CLOUDY (Clear); Glucose, Urine (Dipstick) 250 mg/dL (Negative); Leukocyte Negative (Negative); Nitrite Negative (Negative); Protein, Urine (Dipstick) 300 mg/dL (Neg-Trace)
[2018-08-16] MEDS ORDERED: Fentanyl 100 MCG/2 ML VIAL ONE (18:40)
[2018-08-16 18:42] LABS: Bacteria/HPF None Seen HPF (None Seen); Pathc Cast-AUWi Flag 3.92 (0-2.49); WBC/HPF 0-3 HPF (0-3)
[2018-08-16 18:43] LABS: CKMB 65.8 ng/mL (0-6.6); Troponin I 14.863 ng/mL (< 0.028)
[2018-08-16 18:43] LABS: Hyaline Casts/LPF 0-3 HYALINE CAST LPF (0-3 Hyaline); Manual Microscopic Reviewed? No Path Casts Seen; Renal Epithelial None Seen HPF (0-3)
[2018-08-16 18:48] LABS: Actual Bicarbonate (HCO3a) 25.2 mEq/L (22-28); Analyzer IN Cardio ER; Base Excess (BEa) -1.3 mEq/L (-2.0 to +3.0); Calcium, Ionized 1.22 mmol/L (1.12-1.30); Carboxyhemoglobin (COHb) 0.9 gm% (0.0-3.0); Potassium - ABG Lab 4.58 mmol/L (3.70-5.30); pH, Arterial 7.32 (7.35-7.45)
--- NOTE | 2018-08-16 19:05 | RAD ---
TWO VIEWS RIGHT TIBIA AND FIBULA: 08/16/18 HISTORY: Fall. Pain. COMPARISON: None. FINDINGS: There are vascular calcifications. No fracture. No cortical irregularity or periosteal reaction. IMPRESSION: No fracture. POS: [facility]
[2018-08-16 19:16] LABS: INR-International Normal Ratio 1.2; PTT 65.4 SEC (22.9-36.1); Prothrombin Time 15.6 SEC (12.0-14.7)
--- NOTE | 2018-08-16 19:17 | RAD ---
CHEST ONE VIEW: 08/16/18 HISTORY: Shortness of breath. Fell last night around 1 a.m. COMPARISON: 03/24/18. FINDINGS: Portable upright chest demonstrates an enlarged cardiac silhouette. The pulmonary vessels are normal. Costophrenic angles are clear. Persistent elevation of the left hemidiaphragm. No pneumothorax or os seous abnormalities. IMPRESSION: 1. No acute cardiopulmonary process. 2. Stable elevation of the right hemidiaphragm. POS: [facility]
--- NOTE | 2018-08-16 19:19 | RAD ---
TWO VIEWS LEFT FOOT: 08/16/18 HISTORY: Fall. Pain. COMPARISON: None. FINDINGS: Limited evaluation of the Lisfranc alignment. There is soft tissue swelling. There is diffuse bone de mineralization. There is a nondisplaced fracture involving the proximal aspect of the proximal phalan x of the fifth digit. There is intra-articular extension. IMPRESSION: Fifth digit fracture. POS: [facility]
--- NOTE | 2018-08-16 19:22 | RAD ---
LEFT TIBIA AND FIBULA TWO VIEWS: 08/16/18 HISTORY: Recent fall. Pain. COMPARISON: None. FINDINGS: There are vascular calcifications. There is nonspecific periosteal reaction involving the fibula. No fractures. No cortical disruption. IMPRESSION: Nonspecific periosteal reaction involving the mid fibula. Further interrogation with a whole body bon e scan can be performed. POS: [facility]
--- NOTE | 2018-08-16 19:27 | RAD ---
RIGHT FOOT TWO VIEWS: 08/16/18 HISTORY: Fall. Pain. COMPARISON: 12/21/12. FINDINGS: Old healed fifth metatarsal fracture. There is evidence of soft tissue swelling. Questionable ulcera tion along the lateral plantar soft tissues. No definite erosive or destructive changes. Lisfranc ali gnment appears to be maintained. IMPRESSION: Possible soft tissue ulceration without radiographic evidence of osteomyelitis. POS: [facility]
[2018-08-16] MEDS ORDERED: Heparin 25,000 units/D5W 500 ML ONE (19:30)
[2018-08-16 19:45] LABS: Puncture Site RRA
[2018-08-16] MEDS ORDERED: Heparin 10,000 UNITS/ 10 ML VIAL SLOW IVP SCH (19:45)
[2018-08-16] MEDS ORDERED: Furosemide 40 MG/4 ML VIAL ONE (19:54)
[2018-08-16] MEDS ORDERED: Insulin Regular 300 UNITS/3 ML VIAL ONE (20:22)
[2018-08-16] MEDS ORDERED: Ondansetron PF 4 MG/2 ML Vial IVP PRN (21:19)
[2018-08-16] MEDS ORDERED: Nitroglycerin 0.4 MG TAB (25 Tab Bottle) SL PRN (21:19)
[2018-08-16 21:44] LABS: Lactic Acid 1.8 mmol/L (0.5-2.2); Osmolality, Serum 341 mOsm/kg (280-295)
[2018-08-16 22:02] LABS: Troponin I 23.987 ng/mL (< 0.028)
--- NOTE | 2018-08-16 22:18 | CT ---
NONCONTRAST HEAD CT 08/16/18 HISTORY: Fall. Pain. COMPARISON: 01/21/14. FINDINGS: No parenchymal hemorrhage. No extra-axial hematoma. No midline shift. Basilar cisterns are patent. Br ain volume is age appropriate. Cortical mccann-white matter differentiation is preserved. The ventricle s and sulci are patent and symmetric. Stable darren hole defects in the left calvarium. Adequate aeration of the sinuses and mastoid air cell s. Cavernous carotid atherosclerosis is noted. IMPRESSION: No acute intracranial process. POS: [facility]
[2018-08-16] MEDS ORDERED: Dextrose 50% Abboject 50 ML SYRINGE SLOW IVP PRN (22:48)
[2018-08-16] MEDS ORDERED: Dextrose 5% in Water 1,000 ML IV PRN (22:48)
[2018-08-16] MEDS ORDERED: Sodium Chloride 0.45% 1,000 ML IV SCH (23:00)
[2018-08-16 23:09] LABS: Actual Bicarbonate (HCO3v) 24 mEq/L (22-28); Base Excess -0.6 mEq/L (-2.0 to +3.0); Calcium, Ionized 1.14 mmol/L (1.16-1.32); Chloride (ABG LAB) 103 mmol/L (98-106); Hemoglobin (Hb) 11.6 g/dL (11.7-16.1); Sodium 138.7 mmol/L (133-146)
[2018-08-16] MEDS: Insulin Regular 300 UNITS/3 ML VIAL SC PRN (23:32)
[2018-08-17 01:06] LABS: Troponin I 24.246 ng/mL (< 0.028)
--- NOTE | 2018-08-17 01:19 | PRG ---
DATE OF SERVICE: 08/17/2018 I was notified by Dr. Rizvi regarding . Lexie Echevarria, who is a patient of mine and I follow [facility] regarding her chronic renal failure. Her measured serum osmolality was reported at 341 and my calculated plasma osmolality is 324, which showed a gap of 17, which actually is small. This may be caused by lactic acidosis or ketoacidosis. I doubt this is caused by any alcohol ingestion. Her history does not suggest that and this patient whom I know very well from the clinic, does not have any history of alcoholic intake. I doubt she had ethylene ingestion also. My explanation for the mildly elevated osmolar gap is simple lactic acidosis or ketoacidosis. For that reason , I have decided to start this patient empirically on IV antibiotics - ceftriaxone 1 gram IV q.12 hours. Blood culture and urine culture have been done. In addition, a procalcitonin has been done. Of interest, the patient has a very long list of allergies to antibiotics. I am quite suspicious that some of them are not true allergies, but more or less similar to intolerance or a mild adverse reaction. I will be doing further evaluation of this patient first thing in the morning. I do not think there is any indication for any dialytic intervention at the present time. ALOK
[2018-08-17] MEDS: Sodium Chloride 0.9% 1,000 ML IV SCH ×3 (01:28→22:53)
[2018-08-17] MEDS: cefTRIAXone\\ROCEPHIN 1 GM in Sodium Chloride 0.9% 100 ML IVPB SCH ×2 (01:31→13:22)
[2018-08-17 02:16] LABS: #Lymphocytes 0.5 thou/uL (1.20-3.40); #Monocytes 0.7 thou/uL (0.11-0.59); #Neutrophils 17.7 thou/uL (1.40-6.50); %Eosinophils 0.2 % (0.0-10.0); %Lymphocytes 2.5 % (21.0-51.0); %Monocytes 3.5 % (0.0-10.0); %Neutrophils 93.8 % (42.0-75.0); Hemoglobin 10.8 g/dL (12.0-16.0); Mean Corpuscular HGB CONC 30.8 g/dL (32.0-36.0); Mean Corpuscular Hemoglobin 27.3 pg (27.0-31.0); Mean Corpuscular Volume 88.6 fL (78.0-98.0); Mean Platelet Volume 8.1 fL (7.4-10.4); Platelet Count 231 thou/uL (130-400); RBC Distribution Width 14.3 % (11.5-14.5); Red Blood Cell (RBC) Count 3.94 mill/uL (4.20-5.40); White Blood Cell (WBC) Count 18.8 thou/uL (4.8-10.8)
[2018-08-17 02:46] LABS: Anion Gap 14 mmol/L (10-20); BUN (Urea Nitrogen) 72 mg/dL (9.8-20.1); CK (CPK) 1375 U/L (29-168); Calc. Creatinine Clearance 34 mL/min (70-130); Calcium 9.5 mg/dL (7.8-10.44); Carbon Dioxide 25 mmol/L (23-31); Cardiac Risk 2.2 (Less than 4.5); Chloride 104 mmol/L (98-107); Cholesterol 104 mg/dl (< 200 Desired); Estimated GFR-MDRD 19; Glucose 357 mg/dL (83-110); HDL Cholesterol 47 mg/dL (>60 Neg Risk); LDL Cholesterol, Calculated 48 mg/dL; Potassium 4.4 mmol/L (3.5-5.1); Sodium 139 mmol/L (136-145); Triglycerides 44 mg/dL (Less than 150)
[2018-08-17 02:51] LABS: PTT 241.8 SEC (22.9-36.1)
[2018-08-17] MEDS: Acetaminophen 325 MG TAB PO PRN (06:07)
[2018-08-17] MEDS ORDERED: Lisinopril 2.5 MG TAB PO SCH (09:00)
[2018-08-17] MEDS ORDERED: Aspirin 325 mg Enteric Coated Tablet PO SCH (09:00)
[2018-08-17] MEDS ORDERED: Heparin 25,000 units/D5W 500 ML IV SCH (10:00)
[2018-08-17] MEDS: Metoprolol Tartrate 25 MG TAB PO SCH ×2 (10:49→21:34)
[2018-08-17] MEDS: Insulin Regular 300 UNITS/3 ML VIAL SC PRN ×3 (10:54→21:38)
[2018-08-17 11:43] LABS: PTT 197.4 SEC (22.9-36.1)
--- NOTE | 2018-08-17 12:00 | PDOC.PN ---
- Subjective Encounter Start Date: 08/17/18 (f/u fall) Encounter Start Time: 11:59 Subjective: pt c/o pain in her hips. denies n/v/abd pain or change in breathing -: she reports using combivent twice daily at home - Objective Resuscitation Status: Resuscitation Status DNR:Do Not Resuscitate Vital Signs & Weight: Vital Signs (12 hours) Temp Pulse Pulse Ox 08/17/18 10:28 96 08/17/18 08:00 99.5 F 99 08/17/18 06:47 92 08/17/18 02:26 93 Weight Weight 240 lb 15.444 oz Most Recent Monitor Data Heart Rate from ECG 90 NIBP 123/41 NIBP BP-Mean 68 Respiration from ECG 21 SpO2 95 I&O: 08/16/18 08/17/18 08/18/18 06:59 06:59 06:59 Intake Total 840 Output Total 700 160 Balance 140 -160 Result Diagrams: 08/17/18 02:01 08/17/18 02:01 Additional Labs: Accuchecks 08/17/18 08/17/18 08/16/18 10:48 04:51 21:57 POC Glucose 250 H 266 H 410 H 08/16/18 08/16/18 08/16/18 20:51 18:00 17:38 POC Glucose 435 H 432 H 428 H EKG Reviewed by me: Yes (tele - sinus 70-80's, st depression) Phys Exam - Physical Examination Constitutional: NAD Respiratory: no wheezing, no rales, no rhonchi shallow breathing Cardiovascular: RRR, no significant murmur Gastrointestinal: soft, non-tender, positive bowel sounds Musculoskeletal: no edema multiple skin wounds - see photos along legs bandaged Neurological: non-focal Psychiatric: normal affect, A&O x 3 Deviation from normal: see above - multiple skin wounds Dx/Plan (1) NSTEMI (non-ST elevated myocardial infarction) Code(s): I21.4 - NON-ST ELEVATION (NSTEMI) MYOCARDIAL INFARCTION Status: Acute (2) COPD (chronic obstructive pulmonary disease) Status: Acute Qualifiers: COPD type: unspecified COPD Qualified Code(s): J44.9 - Chronic obstructive pulmonary disease, unspecified (3) Diabetic renal disease Code(s): E11.21 - TYPE 2 DIABETES MELLITUS WITH DIABETIC NEPHROPATHY Status: Chronic (4) Morbid obesity Code(s): E66.01 - MORBID (SEVERE) OBESITY DUE TO EXCESS CALORIES Status: Chronic (5) Diabetes mellitus type 2 in obese Code(s): E11.69 - TYPE 2 DIABETES MELLITUS WITH OTHER SPECIFIED COMPLICATION; E66.9 - OBESITY, UNSPECIFIED Status: Chronic (6) Hypertension Code(s): I10 - ESSENTIAL (PRIMARY) HYPERTENSION Status: Chronic (7) Chronic ulcer of leg Code(s): L97.909 - NON-PRS CHRONIC ULC UNSP PRT OF UNSP LOW LEG W UNSP SEVERITY Status: Acute - Plan * Pt with multiple issues: * nstemi - cardiology consulted, echo ordered, on aspirin low dose and heparin. * copd - pulmonology consult ordered * add duonebs scheduled per home routine * elevated d-dimer - VQ ordered and pt on full dose heparin * chronic skin wounds - rocephin started * found down with pelvic pain - XR pelvis ordered, add prn morphine low dose * dm - resume levemir at 10 units (pt reports using 12 units BID at home), continue ISS * CKD - appreciate Nephrology consult * resume calcitriol home medicine * resume home ppi * * dvt prophy - on full dose heparin * gi prophy - pt on ppt at home - continue * code status DNR * * reviewed plan of care with patient/family, no questions or further needs at end of eval * pt remains at high risk in current condition * .
--- NOTE | 2018-08-17 12:11 | CON ---
DATE OF CONSULTATION: 08/17/2018 RENAL MEDICINE HISTORY OF PRESENT ILLNESS: Ms. Echevarria is a 77-year-old white female with known history of chronic renal failure from diabetic nephropathy and was admitted due to a fall. On further evaluation at the ER, she was noted to be mildly shortness of breath. The concern was she may have underlying pulmona ry embolism as suggested by the hypoxemia. Please note, her chest x-ray did not show any overt conge stive heart failure or infiltrates. A planned V/Q scan is being entertained. In addition, Pulmonary has been consulted for further evaluation. They were also concerned regarding the osmolar gap with this patient. On initial evaluation, she had an osmolar gap of 17. Usually, osmolar gap of 10 or le ss is acceptable. I felt this could be related to ketoacidosis or lactic acidosis rather done from a lcohol ingestion. Please note, by history, the patient does not ingest any alcohol. She denies any intake of any ethylene glycol. Her mentation was actually good. This morning, she was feeling a little better. Her shortness of breath is much improved. She has be en empirically treated with IV heparin. I have decided to start her on normal saline. In addition, I empirically treated her with ceftriaxone 1 gram IV q.12 hours, due to the fact she may have a signi ficant infection with regard to her right lower leg. Blood culture and urine culture have been done. Procalcitonin has been done, which was noted to be elevated. PHYSICAL EXAMINATION: VITAL SIGNS: Blood pressure is currently noted at 120/55, heart rate 87, respiratory rate 36, O2 sat 99%, temperature 99.3. GENERAL: The patient is awake, supine, comfortable, not in distress. SKIN: Adequate turgor. HEENT: She has pinkish conjunctivae, anicteric sclerae. NECK: No neck mass, no carotid bruits, no JVD. CHEST: No deformities. LUNGS: Decreased breath sounds, no wheezing, no crackles. HEART: Normal sinus rhythm. No murmur, no gallops, no rubs. ABDOMEN: Globular, soft, nontender, no masses. EXTREMITIES: No edema. Positive for right leg wound dressing. NEUROLOGIC: Awake, oriented to 3 spheres. Moving all extremities. No tremors. No asterixis. No a taxia. REVIEW OF SYSTEMS: Positive for fall. No nausea, no vomiting. Positive for mild shortness of breat h. No syncopal episode, no productive cough, no fever or chills, chronic leg infection. No dysuria. No urinary frequency. No hematochezia, no melena, no abdominal pain. Appetite and energy level is fair. MEDICATIONS: Tylenol 650 mg q.4. p.r.n., Ecotrin 325 mg once a day, ceftriaxone 1 gram IV q.12, norm al saline at 100 mL an hour, heparin drip as directed, Humulin R sliding scale, Lopressor 12.5 mg p.o . b.i.d. PAST MEDICAL HISTORY: 1. Chronic leg infection. 2. Type 2 diabetes mellitus. 3. Chronic renal failure secondary to presumed diabetic nephropathy. 4. History of morbid obesity. 5. Hypertension. 6. Obstructive sleep apnea, status post chronic subdural hematoma. 7. Coronary artery disease status post congestive heart failure, diastolic. 8. Chronic venous insufficiency with chronic venous stasis ulcer. 9. History of COPD and peripheral vascular disease. PAST SURGICAL HISTORY: Status post cholecystectomy, status post appendectomy, status post right foot debridement by Dr. Valdivia, status post section, status post cholecystectomy. SOCIAL HISTORY: The patient is single, lives with her daughter. She lives in [place]. [facility]. Currently, no alcohol or tobacco use. Status post blood transfusion. FAMILY HISTORY: No family history of ESRD. LABORATORY DATA: Laboratories of 08/17/2018 was reviewed. ASSESSMENT AND PLAN: 1. Chronic renal failure/acute kidney injury, stable renal function. I would suggest we continue no rmal saline at 100 mL per hour. I did review the chest x-ray and showed no infiltrates or any eviden ce of congestive heart failure. 2. Leukocytosis/chronic right leg infection -- procalcitonin was noted to be elevated. Blood cultur e and urine culture and sensitivity have been done for this patient and the plan is to continue IV ce ftriaxone at 1 gram IV q.12. She seems to be tolerating the IV antibiotics. If needed, consider con sulting Dr. Best. Please note her white count has dropped from 23,000 to 18,000. 3. Elevated osmolar gap -- difference of 17 from the calculated to the measured serum osmolality. M y feeling this could be related from the lactic acidosis versus ketoacidosis. I doubt that she has a ny alcohol ingestion or ethylene glycol ingestion. Overall prognosis remains guarded with this patient. Please note there is no indication for any екатерина gent dialytic intervention for this patient. In addition, her creatinine this morning was noted at 2 .45, which is about near baseline. Agree with current management.
[2018-08-17] MEDS: Morphine 2 MG/ML SYRINGE SLOW IVP PRN (12:53)
--- NOTE | 2018-08-17 12:58 | RAD ---
AP PELVIS 1 VIEW: HISTORY: Found down with pelvic pain. COMPARISON: None. FINDINGS: The obturator rings appear to be intact. No displaced fracture is appreciated. Moderate degenerativ e disease of both hips. SI joints appear to be unremarkable. Numerous phleboliths in the pelvis. IMPRESSION: No acute displaced fracture, although limited due to under penetration. POS: [facility]
[2018-08-17] MEDS ORDERED: cefTRIAXone\\ROCEPHIN 1 GM VIAL ONE (13:07)
--- NOTE | 2018-08-17 13:26 | PDOC.EVN ---
Event Note - Event Note Event Note: called by RN for both blood cx with gram neg rods - consult to Dr. Best given multiple drug allergies. Pt is on Rocephin now.
--- NOTE | 2018-08-17 14:36 | HP ---
PRIMARY CARE PHYSICIAN: The patient is a city call. CODE STATUS: The patient is DNR/DNI as verified with the patient by me and the RN TIME OF EVALUATION: 08:25 p.m. CHIEF COMPLAINT: The patient had syncope. HISTORY OF PRESENT ILLNESS: This is a 77-year-old female patient with past medical history of coronary artery disease, diabetes, gastroparesis, hypertension, COPD, came to the hospital after being found on the floor the patient had an episode of syncope and fell to the ground. The patient reported she was unable to stand up, she was very weak, she reported no chest pain, no clear triggers, no alleviating factors, she remembers passing out and reported she was alert unable to stand up, since that symptom has been present for more than 12 hours, symptoms started suddenly, associated with loss of consciousness. The patient found to have elevated troponin, diagnosis of non -STEMI. Cardiology has been consulted, placing in ICU, on heparin, we will follow recommendations from Cardiology. REVIEW OF SYSTEMS: Constitutional: No fever or chills. The patient did report generalized weakness. Respiratory: The patient reported shortness of breath. No cough or sputum production. Cardiovascular: No chest pain or palpitations. Gastrointestinal: The patient had nausea. No vomiting, no diarrhea, no abdominal pain. TAG WRITER: The patient had an episode of syncope with loss of consciousness. Genitourinary: No burning on urination. Extremities: The patient has chronic bilateral leg wounds with redness and swelling. She has been treated by Wound Care and Dr. Best in the past. All other systems were reviewed and were negative except for the findings mentioned above. PAST MEDICAL HISTORY: Mentioned in the HPI. FAMILY HISTORY: Reviewed and noncontributory for current presentation. PAST SURGICAL HISTORY: The patient has a right foot surgery for infection, bilateral eye surgery, cataract and retinopathy surgical history of appendectomy, surgical history of cholecystectomy, , subdural hematoma with darren holes. PSYCHIATRIC HISTORY: No previous psychiatric history. SOCIAL HISTORY: No smoking, no alcohol, no drug use. KNOWN ALLERGIES: AMOXICILLIN, ANTIFUNGAL, ATORVASTATIN, , CIPROFLOXACIN, CLAVULANIC ACID, CLINDAMYCIN, CODEINE, ESTROGENS, FLAGYL, IMIDAZOLE, LEVOFLOXACIN, MACROBID, METRONIDAZOLE, NITROFURANTOIN, SULFAMETHOXAZOLE, VANCOMYCIN. REPORTED MEDICATIONS: Aspirin, omeprazole, calcitriol, Zetia, Coreg, potassium chloride, metolazone, torsemide, Levemir, NovoLog. PHYSICAL EXAMINATION: VITAL SIGNS: On presentation, blood pressure 156/59 with heart rate 101, respiratory rate was 29, temperature 97.6, oxygen saturation 93% on 4 liters of oxygen. GENERAL APPEARANCE: The patient is alert, oriented, respiratory distress. The patient is on BiPAP, has improved after BiPAP. HEENT: Eyes, normal conjunctivae. Moist oral mucosa. Anicteric. NECK: No JVD. RESPIRATORY: Bilateral air entry with scattered rales. No wheezing. Symmetric expansion. CARDIOVASCULAR: Normal rate, regular rhythm. No murmurs, no gallop. Bilateral leg edema. ABDOMEN: Soft, normal bowel sounds. MUSCULOSKELETAL: Baseline range of motion and strength. No tenderness. SKIN: Warm and intact. No pallor, no rash except for the bilateral lower extremities. The patient has chronic wounds with excoriation, redness, swelling , peripheral pulses are present. Capillary refill seems to be intact. NEUROLOGIC: No evidence of any new focal weakness. Baseline speech. Cranial nerves seem to be intact. PSYCHIATRIC: The patient is in good mood. No anxiety, oriented, optimal judgment. IMAGING: EKG was discussed with the performing physician from the ER. The patient had a questionable ST elevation in lead III and AVR at the rate of 96. EKG was repeated. Findings were present and discussed with Dr. Diego by the ER doctor. CT head was done and was negative. Foot x-ray showed fifth digit fracture, also possible soft tissue ulceration without radiographic evidence for osteomyelitis. Tibia and fibula x-ray was done and it was reported a nonspecific periosteal reaction involving the mid fibula, further interrogation with whole body scan can be performed. No fracture was reported. Chest x-ray reported no acute cardiopulmonary process. Stable elevation of the right hemidiaphragm. LABORATORY DATA: Labs were reviewed. The patient has white count 23, hemoglobin 11.8, MCV 89, platelet count 219, neutrophils 84, bands 14. PT 15.6 , INR 1.2, PTT 65.4 with a D-dimer 3.0. Blood gas was done. The patient has a pH 7.32 with pCO2 of 50 and pO2 of 52. Repeat pH was 7.4. Carbon dioxide was 19 with sodium 136, potassium 4.7, chloride 104, BUN 67 with creatinine 2.48, glucose 498. Initial serum osmolality 341. Lactic acid 2.8, came down to 1.8. We will rule out ionized calcium 1.14, magnesium 1.8, total bilirubin 0.3, AST 90, ALT 42. CK was 2003 with troponin 14 . Beta natriuretic peptide 1879. UA was done, which showed proteinuria and glucosuria, no white count. ASSESSMENT AND PLAN: The patient will be placed in the hospital for the following medical problems. Critical care time more than 40 minutes, bedside assessments, stabilization of the patient, coordination of care, review and elaboration of records. 1. Acute myocardial infarction, initial troponin 14 , we will follow recommendations likely for the patient to go for cardiac catheterization in the next few hours. We will continue heparin, reconcile home medications. Adjust treatment as per patient's clinical response. 2. Chronic kidney disease with a BUN of 67, creatinine 2.48, potassium was 4.7. Serum osmolality reportedly 341. We have discussed this case with Dr. Rizvi, we will give mild hydration with half normal saline, we will monitor the patient clinically. 3. 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 The patient followed with Wound Care as outpatient, we have consulted Wound Care , the patient has leukocytosis, that could be related to acute myocardial infarction, if evidence for sepsis appears, consult with Dr. Best given long history of allergic reactions to antibiotics. 4. Elevation of CK, this is mild, we are limited with IV fluids given underlying congestive heart failure. We will monitor CK, we will adjust treatment accordingly, [facility] has been consulted for fluid balance. 5. Leukocytosis, unclear etiology, could be secondary to non-STEMI, the patient could have chronic wounds in the legs Dr. Best needs to be consulted given significant history of multiple antibiotic allergies. 6. Possible underlying congestive heart failure. BNP is very high at 1879, the patient will need appropriate fluid balance, we have consulted Nephrology for assistance with this part, we will follow recommendations. 7. Deep venous thrombosis prophylaxis. [facility]
[2018-08-17] MEDS: Cefepime 2 GM in Sodium Chloride 0.9% 100 ML IVPB SCH (16:49)
--- NOTE | 2018-08-17 20:57 | CON ---
DATE OF CONSULTATION: 08/17/[address] [facility] ILLNESS: Wale is a pleasant 77-year-old female followed by Dr. Go. She has significant obstructive lung disease. She is chronically on oxygen. She said she got up to go to the bathroom, took her oxygen off and fell before she got back to her chair. She landed on her bottom. She was down for 11 hours she says. She subsequently has been admitted. Her main complaint is hip and buttock pain. She is short of breath, but says she is always short of breath and she is not that much worse than she usually is. She was in the hospital 2 months ago with lower extremity cellulitis. She has chronic venous stasis of both lower extremities. We did not see her during that hospitalization. PAST MEDICAL HISTORY: 1. Remarkable for peripheral vascular disease, hypertension, sleep apnea, obesity, hypertension, deconditioning, chronic kidney disease, history of subdural hematoma, history of coronary artery disease. 2. History of diastolic heart failure. 3. History of foot debridement in the past. 4. History of a cholecystectomy, , appendectomy in the past. SOCIAL HISTORY: She is currently not smoking or drinking, does not use drugs. FAMILY HISTORY: Negative for lung disease in early age. MEDICATION: Medicines have been reviewed. REVIEW OF SYSTEMS: A 10-point review of systems completed, otherwise negative. PHYSICAL EXAMINATION: GENERAL: She appears reasonably comfortable. VITAL SIGNS: Respiratory rates in the high 20s, heart rate is 80. Blood pressure 112/53, respiratory rates in the mid 20s, oximetry is 100%. HEENT: Pupils are equal. Sclerae is anicteric. NECK: Supple. LUNGS: Distant and clear. HEART: Regular rhythm. ABDOMEN: Soft and nontender. She has both lower extremities wrapped with gauze , chronic venous stasis changes in both lower extremities below the knees. NEUROLOGIC: Grossly nonfocal. Multiple imaging procedures done in the emergency department. Pelvis film done in the ICU did not show fracture. She had a head CT, which showed no acute process. She had bilateral lower extremity x-rays. Left foot had a fifth digit fracture, right foot showed no fractures. She had tib films showing a periosteal reaction, one lower extremity, bone scan was recommended. Vascular calcifications were seen in the right lower extremity. Chest radiograph shows an elevated right hemidiaphragm. I reviewed this. No alveolar infiltrates were seen. IMPRESSION: 1. Status post fall with mostly soft tissue injuries. 2. Question margaret fifth toe fracture. 3. Chronic stasis of both lower extremities. 4. Chronic respiratory failure. She does not appear to be too far off her baseline. I do not feel a ventilation perfusion study is indicated. 5. Positive troponin. Cardiology has been consulted, but options are limited given her very severe lung disease. 6. Anemia with a normal mean corpuscular volume. This appears to be similar to hemoglobin last admission, 10.8 today, 11.8 yesterday, and 12.1 in May. 7. Chronic kidney disease with a BUN 72 and a creatinine of 2.45. Creatinine in May was 1.82 at its lowest. We will be happy to follow with the other physicians caring for her. We have canceled VQ scan. I do not feel she needs an empiric heparin drip. This has been stopped as well. She will have low dose morphine for pain control. Empiric antibiotics were started, but these should be stopped since cultures are negative. I do not feel that she is septic. Nebulized treatments are probably be better off q.4 h. while awake, low dose of steroids will be added. TIME SPENT: This is a 70-minute consult, with greater than 50% of the time was spent on unit in coordinating care. ALOK
[2018-08-17] MEDS: Insulin Glargine 10 UNITS in Pre-Filled Syringe SC SCH (21:35)
--- NOTE | 2018-08-17 22:51 | CON ---
DATE OF CONSULTATION: 08/17/2018 REASON FOR CONSULTATION: Bacteremia. HISTORY OF PRESENT ILLNESS: A 77-year-old patient known to me from previous evaluations both in clinic as well as in the hospital. I last saw her and felt May of this year when she presented with a history of peripheral vascular disease and venous insufficiency and chronic obstructive lung disease, home with dependent on home O2 as well as type 2 diabetes and chronic refractory ulcers in the lower extremities. In May, she presented with the recrudescence of the ulcerations in the legs. There was no evidence of osteomyelitis in the feet. The ulcers did not seem to penetrate deeper tissues. She had a little bit of cellulitis associated with it. In the phase of multiple drug allergy history, we treated her with Azactam and linezolid. At this time, she was brought in with syncopal event in her home inside the bathroom. She was found on the floor. She was unable to stand up, was very weak. Initial evaluation showed elevated troponin. She was placed in the ICU on heparin. The blood pressure 150/50, heart rate 101, respiratory rate 29, temperature 97.6, O2 sat 93% on 4 liters of oxygen. She appeared alert and oriented. Heart and lung examination was not particularly remarkable. She had ulcers in the lower extremities which were fairly shallow ulcerations, but quite large and with surrounding erythema, particularly in the left lower extremity. The area of cellulitis extended all the way to the knee from the ankle. Initial findings also included a white cell count 23,000, hemoglobin 11.8, platelets 219 with 84% neutrophils, 14% bands. Chemistry with a creatinine of 2.45 and AST 90, other liver enzymes were normal. CK was elevated at 2003. Troponin was elevated at 14.86. Currently, Ms. Echevarria is awake. She is in the ICU. She is lying in bed in a sitting position. She denies any headaches, no visual symptoms, sore throat, odynophagia, dysphagia, no dyspnea, no chest pain, no abdominal pain. She has moderate pain, particularly in the left lower extremity. No neurological symptoms. PAST MEDICAL HISTORY: Includes COPD on home O2, prior smoking, PVD and venous insufficiency with chronic somewhat refractory ulcers in lower extremities, probably from mixed arterial/venous insufficiency. Hypertension, CARL, obesity, renal insufficiency, prior subdural hematoma, coronary artery disease, CHF, diastolic type. PAST SURGICAL HISTORY: Also includes cholecystectomy, , appendectomy. SOCIAL HISTORY: Former smoker. She was living by herself with family member help. FAMILY HISTORY: Noncontributory. ALLERGIES: Number of allergies including AMOXICILLIN, ATORVASTATIN, CARBAPENEM , CIPROFLOXACIN with FLUOROQUINOLONES, reported allergy to AZTREONAM, SULFONAMIDES, FLAGYL, and VANCOMYCIN. CURRENT MEDICATIONS: Tylenol, DuoNeb, ceftriaxone, Zetia, glucagon, Medrol, Zofran. PHYSICAL EXAMINATION: VITAL SIGNS: Temperature max 100 now 99.5, blood pressure 112/47, pulse 84, respirations 20. SKIN: Shows the irregular round ulcers in the lower extremities, area of erythema surrounding wound in the right foot extending pretty much over the entire dorsal aspect of the foot in the left heel area, medial aspect erythema and ulcers are much shallower than when I had seen them previously. There is extensive erythema ascending the leg on the left and right side more on the left side. The ulcers on the left side are more irregularly shaped with deeper penetration particularly in the left lateral aspect and they have sort of a serpiginous shape to them in the left side. She has area of bruising in the proximal aspect of the right and left thighs posteriorly. The patient has peripheral IV access and an indwelling Youngblood catheter. GENERAL: Awake and pleasant, in no distress, oriented. HEENT: Ocular movements conjugate. Oral cavity with dry oral mucosa, still quite a few teeth in place with significant gum resorption and decay. NECK: Supple, no jugular vein distention. No lymphadenopathy. LUNGS: With symmetric clear breath sounds, few wheezes in the right side. HEART: S1, S2, regular rate. ABDOMEN: Soft, not distended or tender. No ascites. No bladder distention. EXTREMITIES: She is able to move her feet and lifts the knees from the bed, a short distance. Pulses are diminished in dorsalis pedis. NEUROLOGIC: Cognitive function appears to be intact. LABORATORY DATA: Sodium 136, creatinine 2.48. The other elements of the chemistry showed creatinine down to 2.45. CK down to 1300. White cell count is down to 18,000, hemoglobin 10, platelets 231 with 92 % neutrophils. Urinalysis with 0-3 wbc's, 300 protein, 250 glucose. Microbiology with gram negative chuck in two sets of blood cultures. Urine culture, no growth at 24 hours. Previous leg cultures with Pseudomonas aeruginosa, which was garcia susceptible. She also had Stenotrophomonas maltophilia in July. ASSESSMENT: 1. Peripheral vascular disease and venous insufficiency of lower extremities with refractory ulcerations, particularly in the left lower extremity. 2. Cellulitis, left lower extremity and right foot. 3. Gram-negative chuck bacteremia. 4. Chronic obstructive pulmonary disease, O2 dependent in the home setting. 5. Sepsis. 6. Syncope related to the above. 7. Demand ischemia. DISCUSSION: The most likely source of the bacteremia is the leg ulceration with cellulitis. Pseudomonas aeruginosa and Stenotrophomonas maltophilia and other gram negative rods including E. coli, the likely culprits. [employer] [facility] was not able to provide us with an early identification of the organism. We will switch her to cefepime adjusted for renal function. Continue supportive care. Wound management has been difficult in the past because she does not tolerate compressive dressings. ALOK
[2018-08-18] MEDS: Sodium Chloride 0.9% 1,000 ML IV SCH ×4 (00:18→08:45)
--- NOTE | 2018-08-18 00:25 | CON ---
DATE OF CONSULTATION: 08/17/2018 HISTORY OF PRESENT ILLNESS: A 77-year-old female who had a syncopal episode who was on the floor overnight and then presented after she was found and 911 was called. She was brought to the emergency room, she had elevation of the cardiac enzymes, mainly this is due to most likely rhabdo after being on the floor for many hours. At this time, she remains relatively stable. She denied any chest pain. She had no significant arrhythmias that were noted. She does have a history of left ventricular systolic dysfunction. She has had a history of lower extremity edema. She has chronic stasis ulcers and she also has peripheral vascular disease. I believe she has undergone intervention in the past to her legs or lower extremities. She has had a history of dyslipidemia as well as type 2 diabetes and hypertension. At this time, she has no complaints. She is in the Intensive Care Unit after the episodes of falls to follow the rhabdo. Her ejection fraction has been within reasonable limits. She did have a stress test also the most recent one that I could find was in 2007 which shows ischemia in the anterior wall. Her last cardiac catheterization that I could see was actually in 2000, which showed a 60% left anterior descending artery stenosis and a 50%-60% mid right coronary artery stenosis and a normal ejection fraction. She also has chronic kidney disease and type 2 diabetes. Her EKG did not show any acute changes. She has a normal sinus rhythm, evidence of possible old inferior myocardial infarction. She has been followed by Dr. Escalante for her renal insufficiency. She seems to be relatively awake and alert at this time. PAST MEDICAL HISTORY: Significant for the coronary disease. I did not see that she has had angioplasty or stent placement or bypass surgery. She also has a history of hypertension, type 2 diabetes, chronic leg infection. She has chronic kidney disease. She is followed by Dr. Escalante. She has obesity. She has had a history of COPD. She has peripheral vascular disease. She has had a cholecystectomy, appendectomy. She had foot ulcer debridement by Dr. Valdivia. She has had a . She has had a cholecystectomy. SOCIAL HISTORY: She does have history of alcohol or tobacco abuse. FAMILY HISTORY: Noncontributory. LABORATORY DATA: She has a WBC of 18.8 earlier was 23,000, hemoglobin is 10.8, hematocrit 34.9, platelet count was 231,000. Her troponin I was increased at 20 , originally was 14.8 and then increased up to 23.9. The last one was 24.2. Her CK was 1375. Her CK was 2003. Her MB was 65.8 and most likely this is indicative of her fall on the floor with rhabdomyolysis. Her sodium is 139, potassium 4.4, creatinine is 2.45 and BUN was 72, blood sugar was 357. REVIEW OF SYSTEMS: Unremarkable except what was noted in the history of present illness. PHYSICAL EXAMINATION: GENERAL: Reveals an elderly female who appears to be somewhat fatigued. She says she hurts all over, mainly her lower back area after the fall. VITAL SIGNS: Her blood pressure is 103/62, heart rate is 83 and shows a sinus rhythm. O2 saturations 100%, respiratory rate is about 12. HEENT: Shows the head to be normocephalic, atraumatic. I did not any significant bruits. CHEST: Clear except for a few basilar rales. CARDIOVASCULAR: She has a soft systolic murmur at the upper sternal border. She also has a systolic murmur at the apex, perhaps 2/6. ABDOMEN: Soft and nontender. Positive bowel sounds are present. EXTREMITIES: Show no clubbing, no cyanosis. She does have both lower extremities wrapped. There is also evidence of what appears to be a type of cellulitis or just chronic venous insufficiency. Pedal pulses are not palpable. Popliteal pulses are present but are difficult to palpate. NEUROLOGIC: The patient appears to be intact. SKIN: Warm and dry at this time. IMPRESSION: 1. Elderly female with syncopal episode. She was found lying on the floor and now has developed rhabdomyolysis and renal insufficiency. She has chronic kidney disease. This is perhaps acute on chronic. When she arrived, her creatinine was 2.48 and earlier this morning was 2.45. This is not much off from her baseline which is usually around 2.0. Cardiac enzymes are not indicative of myocardial infarction based on the high CK with the rhabdomyolysis and also the EKG does not show any acute changes. We will continue to follow her with you, but at this time, her cardiac status overall actually appears to be relatively stable. 2. Chronic kidney disease, will be dealt with by Dr. Escalante. 3. Hypertension. This is under good control at this time. She has had a history of a subdural hematoma in the past and has a history of anemia and she has chronic venous stasis of the lower extremities with ulcerations and she also has obesity. Further care of the patient will be by Dr. Cole when he visits with the patient tomorrow. ALOK
[2018-08-18] MEDS: Insulin Regular 300 UNITS/3 ML VIAL SC PRN ×4 (05:32→20:37)
[2018-08-18] MEDS: Morphine 2 MG/ML SYRINGE SLOW IVP PRN (07:36)
[2018-08-18] MEDS: Metoprolol Tartrate 25 MG TAB PO SCH ×2 (08:24→20:37)
[2018-08-18] MEDS: Calcitriol 0.25 MCG CAP PO SCH (08:24)
[2018-08-18] MEDS: Ezetimibe 10 MG TAB PO SCH (08:24)
[2018-08-18] MEDS: Saccharomyces boulardii 250 MG CAP PO SCH (08:25)
--- NOTE | 2018-08-18 08:56 | PRG ---
DATE OF SERVICE: 08/18/2018 HISTORY: Ms. Echevarria is having difficulty breathing, she said she still cannot get a good deep jarrett th. There is no chest pain. PHYSICAL EXAMINATION: VITAL SIGNS: Blood pressure is 130 systolic. Pulse is 82, it is sinus. LUNGS: Clear anteriorly and laterally. CARDIAC: Normal S1, normal S2. I do not hear murmur, rub or gallop. ABDOMEN: Soft, nontender. EXTREMITIES: There is moderate to severe edema with chronic stasis changes. Echocardiogram was reviewed, ejection fraction 55-60%. She has moderate left ventricular hypertrophy , global. There was markedly enlarged left atrium. Her creatinine is 2.45. The estimated GFR is 19, stage IV renal failure. Troponin 24.26. I think s he has thinks she has had a recent non-ST elevation infarction. ASSESSMENT: 1. Status post episode of unresponsiveness, probably related to hypoxemia and chronic diastolic hear t failure. 2. Chronic diastolic heart failure. She appears to be volume overloaded. 3. Stage 4 renal failure. 4. Underlying coronary artery disease. 5. Peripheral vascular disease. 6. Chronic cellulitis. PLAN: 1. Will reduce intravenous fluid. 2. We will need to give her some intravenous diuretics. 3. Watch renal function closely. If she gets somewhat volume depleted intravascular her renal funct ion will worsen, but now she does appear to be volume overloaded. Her predominant problem in the year has been diastolic heart failure.
--- NOTE | 2018-08-18 09:24 | PRG ---
DATE OF SERVICE: 08/18/2018 SUBJECTIVE: Ms. Echevarria is a 77-year-old white female with known history of chronic renal failure fr om diabetic nephropathy and was initially admitted due to a fall. She also complained of some mild s hortness of breath. This morning Cardiology has seen the patient and has decided to decrease the IV fluid. Lasix has been given. Please note her cardiac echo showed a normal ejection fraction. She also has an elevated troponin I on admission with a value of 24.2. The patient complained of diffuse myalgia. PHYSICAL EXAMINATION: VITAL SIGNS: Blood pressure is 123/58, heart rate 82, respiratory rate 12, pulse ox 96%. GENERAL: Noted to be awake, supine, comfortable, not in overt distress. SKIN: Adequate turgor. HEENT: She has slightly pale conjunctivae, anicteric sclerae. NECK: No neck mass, no carotid bruits, no JVD. CHEST: No deformities. LUNGS: Clear. Decreased breath sounds. HEART: Normal sinus rhythm. No murmur, no gallops, no rubs. ABDOMEN: Globular, soft, nontender, no masses. EXTREMITIES: No edema, no deformities. Positive for left leg erythema. MEDICATIONS 08/18/2018 - Reviewed. LABORATORY DATA: 08/18/2018 - Pending. 08/17/2018 - White count 18.8, BUN 72, creatinine 2.45. CK is 1375. ASSESSMENT AND PLAN: 1. Right leg infection, on empiric IV antibiotics, ceftriaxone 1 gram IV every 12 hours. 2. Chronic renal failure from diabetic nephropathy, stable renal function. The patient is adequatel y diuresing. 3. Mild shortness of breath - IV fluid has been decreased from 100 to 50 mL per hour, p.r.n. Lasix. Cardiology is following. The patient most likely has a diastolic dysfunction. No indication for any dialytic intervention. Her chronic renal failure is noted to be relatively sta ble.
[2018-08-18] MEDS: Insulin Glargine 10 UNITS in Pre-Filled Syringe SC SCH ×2 (09:36→20:36)
[2018-08-18 10:03] LABS: Anion Gap 14 mmol/L (10-20); BUN (Urea Nitrogen) 90 mg/dL (9.8-20.1); Calc. Creatinine Clearance 32 mL/min (70-130); Calcium 9.1 mg/dL (7.8-10.44); Carbon Dioxide 22 mmol/L (23-31); Chloride 104 mmol/L (98-107); Estimated GFR-MDRD 18; Glucose 413 mg/dL (83-110); Potassium 5.4 mmol/L (3.5-5.1); Sodium 135 mmol/L (136-145)
--- NOTE | 2018-08-18 11:03 | RAD ---
CHEST 1 VIEW: HISTORY: CHF. COMPARISON: Radiograph 08/16/2018. FINDINGS: Size increasing layering right pleural effusion. Small left effusion. Mild edema. No pneumothorax. Heat size is enlarged. IMPRESSION: Slight interval increase in right layering pleural effusion. POS: [facility]
[2018-08-18] MEDS ORDERED: HYDROcodone/Acetaminophen 5/325 mg Tablet PO PRN (11:04)
[2018-08-18] MEDS ORDERED: traMADol HCl 50 MG TAB PO PRN ×2 (11:06)
--- NOTE | 2018-08-18 12:01 | PRG ---
DATE OF SERVICE: 08/18/2018 SUBJECTIVE: Lexie Echevarria remains reasonably stable. She has majorly complaints about the pelvic and hip pain. I spoke with orthopedic trauma to take a look at her imaging. Her pain may simply be from a large hematoma aggravated by anticoagulation or it may be that she has a small fracture. Further workup will be entertained by them. I have discussed this with them. Her respiratory status appears to be at its baseline. She reports she is always short of breath. OBJECTIVE: VITAL SIGNS: Her blood pressure 129/56, heart rate 79, respiratory rate is 25, oximetry is 92 nasal cannula oxygen. LUNGS: Clear anteriorly. HEART: Regular rhythm. ABDOMEN: Soft. EXTREMITIES: Without clubbing or cyanosis. She has her chronic stasis changes over both lower extremities and they are gauze wrapped. Lower extremities will be seen by Wound Care later today. LABORATORY DATA: White count 18.8, hemoglobin 10.8, platelets 231,000. Sodium 135, potassium 5.4, chloride 104, bicarbonate 22, BUN 90, creatinine 2.61 and it was 2.45 yesterday. IMPRESSION: 1. Chronic obstructive pulmonary disease, near her baseline. 2. Diastolic heart failure, clinically stable. Chest x-ray has been ordered. 3. Chronic lower extremities stasis changes of recent cellulitis. 4. Lipid disorder. 5. Diabetes. We will try to decrease her steroids tomorrow if she remains stable. Her fluid intake and output will be monitored. Her IV fluids have been cut back to 50 mL an hour. She will be evaluated by Orthopedic Surgery today. Critical care time was 30 minutes. ALOK
--- NOTE | 2018-08-18 13:05 | PDOC.PN ---
- Subjective Encounter Start Date: 08/18/18 Encounter Start Time: 11:30 -: old records requested/rev Pt seen and examined, chart reviewed in its entirety, this is my first visit with this patient Follow up for chronic right leg ulce,r cellulitis and GNR bacteremia with sepsis No F/C, no N/V/D/C, no CP or SOB All systems reviewed and neg except as above - Objective Resuscitation Status: Resuscitation Status DNR:Do Not Resuscitate MAR Reviewed: Yes Vital Signs & Weight: Vital Signs (12 hours) Temp Pulse Resp Pulse Ox 08/18/18 12:00 98.0 F 08/18/18 11:13 75 18 98 08/18/18 08:34 99 08/18/18 08:30 74 27 H 99 08/18/18 07:47 100 08/18/18 07:00 97.6 F Weight Weight 240 lb 15.444 oz Most Recent Monitor Data Heart Rate from ECG 80 NIBP 122/71 NIBP BP-Mean 88 Respiration from ECG 22 SpO2 91 I&O: 08/17/18 08/18/18 08/19/18 06:59 06:59 06:59 Intake Total 840 3179 530 Output Total 700 655 240 Balance 140 2524 290 Result Diagrams: 08/17/18 02:01 08/18/18 09:25 Additional Labs: Accuchecks 08/18/18 08/18/18 08/17/18 10:10 05:31 15:55 POC Glucose 391 H 321 H 302 H Radiology Reviewed by me: Yes EKG Reviewed by me: Yes Phys Exam - Physical Examination Constitutional: NAD chronically ill appearing HEENT: PERRLA, moist MMs, sclera anicteric, oral pharynx no lesions Neck: no nodes, no JVD, supple, full ROM Respiratory: no wheezing, no rales, no rhonchi, clear to auscultation bilateral Cardiovascular: RRR, no rub Gastrointestinal: soft, non-tender, no distention, positive bowel sounds Musculoskeletal: no edema, edema present Neurological: non-focal, normal sensation, moves all 4 limbs Lymphatic: no nodes Psychiatric: normal affect, A&O x 3 Skin: no rash, normal turgor, cap refill <2 seconds Deviation from normal: wound dressed, not opened, will see with wound care later Dx/Plan (1) Gram-negative bacteremia Code(s): R78.81 - BACTEREMIA Status: Acute Comment: GNR. History of leg cultrues with pseudomonas, steno. Verigene neg, follow up ID and sensitivitiy. ID following, changed to Cefepime yesterday (2) COPD (chronic obstructive pulmonary disease) Status: Acute Qualifiers: COPD type: unspecified COPD Qualified Code(s): J44.9 - Chronic obstructive pulmonary disease, unspecified (3) Chronic ulcer of leg Code(s): L97.909 - NON-PRS CHRONIC ULC UNSP PRT OF UNSP LOW LEG W UNSP SEVERITY Status: Acute Qualifiers: Laterality: right Non-pressure ulcer stage: with fat layer exposed Qualified Code(s): L97.912 - Non-pressure chronic ulcer of unspecified part of right lower leg with fat layer exposed (4) NSTEMI (non-ST elevated myocardial infarction) Code(s): I21.4 - NON-ST ELEVATION (NSTEMI) MYOCARDIAL INFARCTION Status: Acute (5) Cellulitis of both lower extremities Code(s): L03.115 - CELLULITIS OF RIGHT LOWER LIMB; L03.116 - CELLULITIS OF LEFT LOWER LIMB Status: Acute Comment: recurrent, suspect GNR based on prior cultures (6) Diabetic autonomic neuropathy associated with type 2 diabetes mellitus Code(s): E11.43 - TYPE 2 DIABETES W DIABETIC AUTONOMIC (POLY)NEUROPATHY Status : Chronic (7) Labile hypertension Code(s): I10 - ESSENTIAL (PRIMARY) HYPERTENSION Status: Chronic (8) CKD (chronic kidney disease) stage 4, GFR 15-29 ml/min Code(s): N18.4 - CHRONIC KIDNEY DISEASE, STAGE 4 (SEVERE) Status: Chronic (9) Diabetes mellitus type 2 in obese Code(s): E11.69 - TYPE 2 DIABETES MELLITUS WITH OTHER SPECIFIED COMPLICATION; E66.9 - OBESITY, UNSPECIFIED Status: Chronic (10) Diabetic renal disease Code(s): E11.21 - TYPE 2 DIABETES MELLITUS WITH DIABETIC NEPHROPATHY Status: Chronic (11) Hypertension Code(s): I10 - ESSENTIAL (PRIMARY) HYPERTENSION Status: Chronic (12) Morbid obesity Code(s): E66.01 - MORBID (SEVERE) OBESITY DUE TO EXCESS CALORIES Status: Chronic - Plan cont current plan of care, continue antibiotics * .
--- NOTE | 2018-08-18 15:41 | RAD ---
AP PELVIS: History: Right hip and buttock pain. FINDINGS/IMPRESSION: Comparison is made with exam of previous day. Degenerative changes are seen in the hip joints bilaterally. No definite fracture, dislocation, or [place] destruction is identified. POS: [facility]
--- NOTE | 2018-08-18 15:42 | RAD ---
RIGHT HIP TWO VIEWS: Indication: Pain. FINDINGS: The right hip is not reliably visualized due to overlying soft tissues and incomplete penetration. Th e possibility of an underlying fracture cannot be entirely excluded. No obvious displacement identifi ed on the cross table lateral view. IMPRESSION: Limited evaluation of the right hip. If there is high clinical suspicion for fracture, recommend foll ow up with CT of right hip. POS: [facility]
[2018-08-18] MEDS: Cefepime 2 GM in Sodium Chloride 0.9% 100 ML IVPB SCH (15:47)
[2018-08-18] MEDS: HYDROcodone/Acetaminophen 5/325 mg Tablet PO PRN (22:05)
--- NOTE | 2018-08-18 22:21 | CON ---
DATE OF CONSULTATION: 08/18/2018 HISTORY OF PRESENT ILLNESS: We were asked by Dr. David Padilla to see patient. The patient came into the hospital on 08/16/2018 after a fall for our particular part, her main complaint is right hip and buttock pain. The patient apparently the day before previously had fall and landed on her right buttocks and had loss of consciousness. She does not recall having chest pain or any other factors of slipping or legs giving out, but now she is being worked up by medical pulmonary for her multiple medical issues. Also seen Dr. Best for some infections in her lower extremities, but her main complaint for us is as above stated right hip, buttock pain. She does have a bruise there. She is able to move that lower extremity somewhat, especially at the knee and foot and toes, but any movement around that hip causes her pain. Currently, she has good sensations on the lower extremities, but her both lower extremities have some venous ulcers that wound care is working on. PAST MEDICAL HISTORY: Positive chronic lower extremity insufficiency ulcers, infections, diabetes, renal failure, hypertension, sleep apnea, CAD, congestive heart failure, COPD, obesity. PAST SURGICAL HISTORY: Cholecystectomy, appendectomy, foot surgery, section. SOCIAL HISTORY: Single. Resides with daughter in [place]. She is active, but not brisk activity and more sedentary lifestyle. No alcohol or nicotine products. CURRENT MEDICATIONS: Levemir, carvedilol, insulin, metolazone, potassium chloride, torsemide, aspirin, calcitriol, Zetia, omeprazole, Florastor. ALLERGIES: AMOXICILLIN, ATORVASTATIN, CARBAPENEM, CIPRO, CLINDAMYCIN, CODEINE, ESTROGEN, IMIDAZOLE,LEVOFLOXACIN, METRONIDAZOLE, MACROBID, BACTRIM. REVIEW OF SYSTEMS: Currently having some shortness of breath, getting neb treatment, lower extremity pain bilaterally, venous stasis ulcers and some right hip and pelvis pain and she feels very fatigued. Otherwise, rest of review of systems negative. PHYSICAL EXAMINATION: GENERAL: Very pleasant female resting, getting neb treatment, but in no acute distress unless movement to right lower extremity was applied. Speech clear, fluent, oriented x3. HEENT: Normal exam. Face symmetric, tongue midline. NECK: Supple, trachea midline. RESPIRATORY: Doing okay currently with breathing treatment upper extremities, equal size, shape, symmetry, normal bulk and tone with some notable bruising to the forearms. Lower extremities, both lower extremities are dressed from the knees down for her stasis ulcers, infections. Wound care is working on this. In regards to her right hip, she has some palpable tenderness over the greater trochanteric area and into the right buttocks. Bruising is positive there. Mild amount of edema. Rocking her pelvis causes no pain nor does rolling her hip in and out, bringing her hip towards her chest does cause her some pelvis, hip pain on that side. She has fairly good sensations to the lower extremities that are equal. ASSESSMENT: 1. Multiple health issues. 2. Right hip pain. IMAGING DATA: Initial x-rays did not show any fractures, just some arthritic changes to the right hip. Repeated of pelvis and hip films were done at the bedside. Unfortunately, they are fairly suboptimal, very light, but we did change the density on these and still appears that there are no fractures that we could visualize. PLAN: Due to the x-rays being not so great at the bedside, but we would like to do is once her lungs are tuned up, get her set up for a CT of the pelvis as she continues to have significant pain. I have explained this to the patient. We will have her work with physical therapy, occupational therapy, and hopefully get her moving a little bit better. She has multiple other medical providers working on her health issues and we will try and get her moving a little bit better with that hip. We will continue to check on her each day while she is in the hospital. This is Anil Piña dictating for Dr. Ketan Adair. [facility]
[2018-08-19 05:05] LABS: #Lymphocytes 0.4 thou/uL (1.20-3.40); #Monocytes 0.3 thou/uL (0.11-0.59); #Neutrophils 9.8 thou/uL (1.40-6.50); %Basophils 0.1 % (0.0-1.0); %Eosinophils 0.2 % (0.0-10.0); %Monocytes 3.2 % (0.0-10.0); %Neutrophils 92.6 % (42.0-75.0); Hemoglobin 10.6 g/dL (12.0-16.0); Mean Corpuscular HGB CONC 29.6 g/dL (32.0-36.0); Mean Corpuscular Hemoglobin 26.9 pg (27.0-31.0); Mean Corpuscular Volume 90.8 fL (78.0-98.0); Mean Platelet Volume 8.6 fL (7.4-10.4); Platelet Count 216 thou/uL (130-400); RBC Distribution Width 14.2 % (11.5-14.5); Red Blood Cell (RBC) Count 3.96 mill/uL (4.20-5.40); White Blood Cell (WBC) Count 10.5 thou/uL (4.8-10.8)
[2018-08-19 05:11] LABS: Anion Gap 14 mmol/L (10-20); BUN (Urea Nitrogen) 98 mg/dL (9.8-20.1); Calc. Creatinine Clearance 29 mL/min (70-130); Calcium 9.1 mg/dL (7.8-10.44); Carbon Dioxide 21 mmol/L (23-31); Chloride 103 mmol/L (98-107); Estimated GFR-MDRD 16; Glucose 428 mg/dL (83-110); Potassium 5.7 mmol/L (3.5-5.1); Sodium 132 mmol/L (136-145)
[2018-08-19] MEDS: Sodium Chloride 0.9% 1,000 ML IV SCH (06:20)
[2018-08-19] MEDS: Insulin Regular 300 UNITS/3 ML VIAL SC PRN ×4 (06:21→20:34)
[2018-08-19] MEDS: Metoprolol Tartrate 25 MG TAB PO SCH ×2 (09:11→20:34)
[2018-08-19] MEDS: Calcitriol 0.25 MCG CAP PO SCH (09:11)
[2018-08-19] MEDS: Ezetimibe 10 MG TAB PO SCH (09:11)
[2018-08-19] MEDS: Saccharomyces boulardii 250 MG CAP PO SCH (09:11)
[2018-08-19] MEDS: HYDROcodone/Acetaminophen 5/325 mg Tablet PO PRN ×2 (09:12→20:38)
[2018-08-19] MEDS: Insulin Glargine 10 UNITS in Pre-Filled Syringe SC SCH ×2 (09:17→20:34)
--- NOTE | 2018-08-19 09:44 | PRG ---
DATE OF SERVICE: 08/19/2018 SUBJECTIVE: Ms. Echevarria is a 77-year-old white female who was admitted for a fall and was said to be on the floor for at least 7 hours. We were consulted for acute kidney injury/chronic renal failure. She was seen by Cardiology and recommendation is a 1 time dose of Lasix yesterday. She does have a history of diastolic dysfunction. She was still complaining of diffuse joint pains. I felt that th e myalgia may have been related to her fall. X-rays of her joints were done and no obvious evidence of fracture was noted. No other complaints today. She is feeling better. Her joint pains and muscl e aches is actually slightly improved. No complaints of chest pain or shortness of breath. PHYSICAL EXAMINATION: VITAL SIGNS: Blood pressure 146/75, heart rate 74, respiratory rate 20, temperature 96.5, pulse ox 1 00%. GENERAL: Noted to be awake, alert, comfortable, supine, not in distress. SKIN: Adequate turgor. HEENT: Pinkish conjunctivae, anicteric sclerae. NECK: No neck mass, no carotid bruits. No JVD. LUNGS: Decreased breath sounds. HEART: Normal sinus rhythm. No murmur, no gallops, no rubs. ABDOMEN: Globular, soft, nontender, no masses. EXTREMITIES: No edema. Positive for right leg cellulitis. MEDICATIONS: Of 08/19/2018 was reviewed. LABORATORY DATA: Of 08/19/2018, white count 10.5, hemoglobin 10.6. Sodium 132, potassium 5.7, chlor ron 103, carbon dioxide 21, BUN 98, creatinine 2.81, glucose 428, calcium 9.1. ASSESSMENT AND PLAN: 1. Chronic renal failure - slightly higher creatinine at 2.81. This may be a reflection of the prev ious diuretic regimen with this patient. Continue to observe. No indication for any dialytic interv ention. 2. Mild hyperkalemia - we will observe this. Please note, her sugar was elevated and this could be playing a factor in the slightly higher potassium. 3. Right leg cellulitis, on IV antibiotics. 4. Status post fall/myalgia, supportive care, p.r.n. pain medications. Overall, agree with current management.
--- NOTE | 2018-08-19 10:05 | PRG ---
DATE OF SERVICE: 08/19/2018 Ms. Echevarria is sitting up in bed. She looks better today. She was moved to the [facility]. No chest pain or pressure. Breathing is about the same. PHYSICAL EXAMINATION: VITAL SIGNS: Blood pressure 146/75, pulse 74 regular. LUNGS: Clear anteriorly and laterally. CARDIAC: Normal S1, normal S2. ABDOMEN: Soft, nontender. EXTREMITIES: Moderate to severe edema. PERTINENT LABORATORY: The hemoglobin is 10.6, hematocrit 35.9, potassium up to 5.7, creatinine is hi gher at 2.8, glucose 395. ASSESSMENT: 1. Diastolic congestive heart failure. 2. Underlying coronary disease. 3. Renal failure stage 4. 4. Hyperkalemia. PLAN: Need to give her at least 1 dose of intravenous diuretics. She is very volume overloaded and also has a pleural effusion. Prognosis is guarded.
[2018-08-19] MEDS ORDERED: Furosemide 40 MG/4 ML VIAL SLOW IVP SCH (10:30)
--- NOTE | 2018-08-19 14:39 | PDOC.PN ---
- Subjective Encounter Start Date: 08/19/18 Encounter Start Time: 09:50 follow up for chronic BLE cellulitis, new pseudomonal bactereia, sepsis, present on admit. Pt more arousable, eating fairly well. No F/c, no N/V/D/c. Seen by ID, recommended 10-14d IV cefepime discussed with CM, pending rehab approval. all systems reviewed and neg x as above - Objective 08/19/18 11:52 Resuscitation Status Routine Resuscitation Status: DNAR: NO Resuscitation Discussed with: patient wishes confirmed with RN and physician MAR Reviewed: Yes Vital Signs & Weight: Vital Signs (12 hours) Temp Pulse Pulse Pulse Resp BP BP 08/19/18 14:17 80 16 08/19/18 11:57 97.8 F 83 08/19/18 10:41 85 82 148/64 H 154/70 H 08/19/18 10:21 78 20 08/19/18 07:45 96.5 F L 74 20 08/19/18 07:34 08/19/18 06:59 72 20 08/19/18 04:30 97.7 F 66 18 BP Pulse Ox Pulse Ox Pulse Ox 08/19/18 14:17 95 08/19/18 11:57 90 L 08/19/18 10:41 94 L 90 L 08/19/18 10:21 95 08/19/18 07:45 146/75 H 100 08/19/18 07:34 98 08/19/18 06:59 96 08/19/18 04:30 125/55 L 97 Weight Admit Weight 240 lb Weight 240 lb 15.444 oz Most Recent Monitor Data Heart Rate from ECG 90 NIBP 153/68 NIBP BP-Mean 96 Respiration from ECG 18 SpO2 90 I&O: 08/18/18 08/19/18 08/20/18 06:59 06:59 06:59 Intake Total 3179 2490 Output Total 655 815 Balance 2524 1385 Result Diagrams: 08/19/18 04:10 08/20/18 04:12 Additional Labs: Accuchecks 08/19/18 08/19/18 08/18/18 10:30 06:04 20:20 POC Glucose 366 H 395 H 448 H 08/18/18 16:14 POC Glucose 426 H Phys Exam - Physical Examination Constitutional: NAD HEENT: PERRLA, moist MMs, sclera anicteric, oral pharynx no lesions Neck: no nodes, no JVD, supple, full ROM Respiratory: no wheezing, no rales, no rhonchi, clear to auscultation bilateral Cardiovascular: RRR, no significant murmur, no rub Gastrointestinal: soft, non-tender, no distention, positive bowel sounds Musculoskeletal: edema present Neurological: moves all 4 limbs Lymphatic: no nodes Deviation from normal: sleeping, arousable, oriented to person and place Deviation from normal: BLE wounds stable Dx/Plan (1) Gram-negative bacteremia Code(s): R78.81 - BACTEREMIA Status: Acute Comment: GNR. History of leg cultrues with pseudomonas, steno. Verigene neg, follow up ID and sensitivitiy. ID following, changed to Cefepime 08/17 (2) COPD (chronic obstructive pulmonary disease) Status: Acute Qualifiers: COPD type: unspecified COPD Qualified Code(s): J44.9 - Chronic obstructive pulmonary disease, unspecified (3) Chronic ulcer of leg Code(s): L97.909 - NON-PRS CHRONIC ULC UNSP PRT OF UNSP LOW LEG W UNSP SEVERITY Status: Acute Qualifiers: Laterality: right Non-pressure ulcer stage: with fat layer exposed Qualified Code(s): L97.912 - Non-pressure chronic ulcer of unspecified part of right lower leg with fat layer exposed (4) NSTEMI (non-ST elevated myocardial infarction) Code(s): I21.4 - NON-ST ELEVATION (NSTEMI) MYOCARDIAL INFARCTION Status: Acute (5) Cellulitis of both lower extremities Code(s): L03.115 - CELLULITIS OF RIGHT LOWER LIMB; L03.116 - CELLULITIS OF LEFT LOWER LIMB Status: Acute Comment: recurrent, suspect GNR based on prior cultures (6) Diabetic autonomic neuropathy associated with type 2 diabetes mellitus Code(s): E11.43 - TYPE 2 DIABETES W DIABETIC AUTONOMIC (POLY)NEUROPATHY Status : Chronic (7) Labile hypertension Code(s): I10 - ESSENTIAL (PRIMARY) HYPERTENSION Status: Chronic (8) CKD (chronic kidney disease) stage 4, GFR 15-29 ml/min Code(s): N18.4 - CHRONIC KIDNEY DISEASE, STAGE 4 (SEVERE) Status: Chronic (9) Diabetes mellitus type 2 in obese Code(s): E11.69 - TYPE 2 DIABETES MELLITUS WITH OTHER SPECIFIED COMPLICATION; E66.9 - OBESITY, UNSPECIFIED Status: Chronic (10) Diabetic renal disease Code(s): E11.21 - TYPE 2 DIABETES MELLITUS WITH DIABETIC NEPHROPATHY Status: Chronic (11) Hypertension Code(s): I10 - ESSENTIAL (PRIMARY) HYPERTENSION Status: Chronic (12) Morbid obesity Code(s): E66.01 - MORBID (SEVERE) OBESITY DUE TO EXCESS CALORIES Status: Chronic - Plan cont current plan of care, continue antibiotics, PT/OT, social media intern, out of bed/ambulate * .
--- NOTE | 2018-08-19 14:51 | PQF ---
SHASHI ROSEN ERIC [id number] [facility]- B02 [id number] CLINICAL DOCUMENTATION IMPROVEMENT CLARIFICATION FORM: ICD-10 Updated PLEASE DO AN ADDENDUM TO THE PROGRESS NOTE WITH ANY DOCUMENTATION UPDATES OR ADDITIONS AND CARRY THROUGH TO DC SUMMARY. THANK YOU. DATE: 08-19-1808-22 ATTN: DR. HETAL WHITFIELD / DR. NANCE Please exercise your independent, professional judgment in responding to the clarification form. Clinical indicators are provided on the bottom of this form for your review Please check appropriate box(s): [ ] NSTEMI [ ] AMI Type II [ ] Demand Ischemia [ ] Other diagnosis [ ] Unable to determine In addition, please specify: Present on Admission (POA): [ ] Yes [ ] No [ ] Unable to determine CLINICAL INDICATORS - SIGNS / SYMPTOMS / LABS ED: SYNCOPE; HYPOXIA; AL; PRESUMED PE; SOB INITIAL EKG SHOWED ST ELEVATION FOUND ON FLOOR OVER NIGHT 08-16 H&P (LISA): ELEVATED TROPONIN, DIAGNOSIS OF NSTEMI 08-17 () CK ARE NOT INDICATIVE OF AL BASED ON THE HIGH CK W/ THE RHABDOMYOLYSIS AND ALSO THE EKG DOES NOT SHOW ANY ACUTE CHANGES. 08-17 (TIFFANIE): SEPSIS; DEMAND ISCHEMIA 08-18 (NAHID): NSTEMI - CHRONIC RIGHT LEG ULCER; RIGHT LEG CELLULITIS; GNR BACTEREMIA SEPSIS LABS: TROPONIN I CKMB CREATINE KINASE 08-16 @ 1805 14.863 65.8 08-16 @ 2128 23.987 08-17 @ 0028 24.246 1375 RISKS: 08-16 H&P (LISA): COPD; DM TYPE 2; CAD 08-17 (TIFFANIE): SEPSIS; DEMAND ISCHEMIA 08-18 (JOEL): CHRONIC DIASTOLIC HEART FAILURE. SHE APPEARS TO BE VOLUME OVERLOADED TREATMENTS: CPOE: ICU MONITORING CARDIOLOGY CONSULT OXYGEN - BIPAP IN ED - NOW 2-3 LNC MAR: MAXIPIME IV 08-17 ROCEPHIN IV 08-17 IVF - N S 08-17 / 08-19 LASIX IV 08-19 THANK YOU, AIDA (This form is maintained as a part of the permanent medical record) 2014 [employer]. All Rights Reserved Aida Ruano RN, BS [email or web address] [employer]
--- NOTE | 2018-08-19 15:07 | PQF ---
SHASHI ROSEN Mike NAHIDHETAL [id number] [facility]- B02 [id number] CLINICAL DOCUMENTATION IMPROVEMENT CLARIFICATION FORM: ICD-10 Updated PLEASE DO AN ADDENDUM TO THE PROGRESS NOTE WITH ANY DOCUMENTATION UPDATES OR ADDITIONS AND CARRY THROUGH TO DC SUMMARY. THANK YOU. DATE: 08-19-18 ATTN: DR. WHITFIELD Please exercise your independent, professional judgment in responding to the clarification form. Clinical indicators are provided on the bottom of this form for your review Please check appropriate box(es): [ ] Severe Sepsis w/ JOANN due to Chronic right leg ulcer and right leg cellulitis [ ] Localized infection without sepsis [ ] Other diagnosis [ ] Unable to determine In addition, please specify: Present on Admission (POA): [ ] Yes [ ] No [ ] Unable to determine For continuity of documentation, please document condition throughout progress notes and discharge summary. Thank You. CLINICAL INDICATORS - SIGNS / SYMPTOMS / LABS LABS: WBC BANDS LACTIC ACID 08-16 23.0 14 2.8 08-17 18.8 ED: P 92 - 101 RR 23 - 33 - ON BIPAP SEPSIS ACTIVATION 08-16 @ 2200 TEMP 100.0 08-17 (TIFFANIE): SEPSIS; DEMAND ISCHEMIA 08-17 (BHAGAT) NO SEPSIS RISK FACTORS H&P: CHRONIC LYMPHANGITIS W/ CHRONIC WOUNDS BLE TREATMENTS: CPOE: ICU MONITORING CARDIOLOGY CONSULT OXYGEN - BIPAP IN ED - NOW 2-3 LNC ID CONSULT 08-16 BLOOD CULTURES: 2/2 - GRAM NEGATIVE RODS - PSEUDOMONAS MEDOCINA 08-16 / 08-17 / 08-19 CBC LABS MAR: MAXIPIME IV 08-17 ROCEPHIN IV 08-17 IVF - N S 08-17 / 08-18 / 08-19 LASIX IV 08-19 THANK YOU, AIDA (This form is maintained as a part of the permanent medical record) 2015 [employer] All Rights Reserved Aida Ruano RN, BS [email or web address] [facility]
--- NOTE | 2018-08-19 15:16 | PQF ---
SHASHI ROSEN ERIC [id number] [facility]- B02 [id number] CLINICAL DOCUMENTATION IMPROVEMENT CLARIFICATION FORM: ICD-10 Updated PLEASE DO AN ADDENDUM TO THE PROGRESS NOTE WITH ANY DOCUMENTATION UPDATES OR ADDITIONS AND CARRY THROUGH TO DC SUMMARY. THANK YOU. DATE: 08-19-18 ATTN: DR. HETAL WHITFIELD Please exercise your independent, professional judgment in responding to the clarification form. Clinical indicators are provided on the bottom of this form for your review Please check appropriate box(s): [ ] Acute on Chronic Diastolic CHF [ ] Chronic Diastolic CHF [ ] Other diagnosis [ ] Unable to determine In addition, please specify: Present on Admission (POA): [ ] Yes [ ] No [ ] Unable to determine For continuity of documentation, please document condition throughout progress notes and discharge summary. Thank You. CLINICAL INDICATORS - SIGNS / SYMPTOMS / LABS ED: ACUTE CHF W/ SOB - REQUIRED BIPAP FOR HYPOXIA AND RESP DISTRESS 08-16 LABS: BNP 1879.9 08-16 CXR: NO ACUTE CARDIOPULMONARY PROCESS 08-17 ECHO: EF 55-60%; DIASTOLIC DYSFUNCTION PRESENT 08-18 CXR: RIGHT PLEURAL EFFUSION; SMALL EFT EFFUSION 08-17 (YUKI) NO CHF 08-18 (JOEL) CHRONIC DIASTOLIC HEART FAILURE. SHE APPEARS TO BE VOLUME OVERLOADED RISKS: 08-16 H&P (LISA): COPD; DM TYPE 2; CAD 08-18 (JOEL): CHRONIC DIASTOLIC HEART FAILURE. SHE APPEARS TO BE VOLUME OVERLOADED; CKD STAGE 4; TREATMENTS: CPOE: ICU MONITORING CARDIOLOGY CONSULT OXYGEN - BIPAP IN ED - NOW 2-3 LNC MAR: MAXIPIME IV 08-17 ROCEPHIN IV 08-17 IVF - N S 08-17 / 08-19 LASIX IV 08-19 THANK YOU, AIDA (This form is maintained as a part of the permanent medical record) 2015 [employer]. All Rights Reserved Aida Ruano RN, BS [email or web address] [facility]ITAL[facility]ri[facility]
[2018-08-19] MEDS: Cefepime 2 GM in Sodium Chloride 0.9% 100 ML IVPB SCH (17:15)
--- NOTE | 2018-08-19 17:27 | PRG ---
DATE OF SERVICE: 08/19/2018 SUBJECTIVE: Feeling better. Less pain in the lower extremities. Mild dyspnea. No chest pain. No abdominal pain. Little bit constipated. OBJECTIVE: VITAL SIGNS: Temperature max 97.5, BP 120/58, pulse 81, respirations 16 to 20, and O2 saturations 95%. EXTREMITIES: There is a less bright erythema in the lower extremities, particularly in the left side, and the ulcers are unchanged. LUNGS: Clear. HEART: S1, S2. Regular rate. ABDOMEN: Soft, nondistended. NEUROLOGIC: She is oriented. Follows commands. LABORATORY DATA: White cell count down to 10.5, hemoglobin 10.6, and platelets 216. Sodium 132, creatinine 2.81. Microbiology with Pseudomonas mendocina, which has broad susceptibility profile ASSESSMENT AND PLAN: Peripheral vascular disease, venous insufficiency with refractory ulcerations, cellulitis of left lower extremity and right foot secondary to gram-negative rods, Pseudomonas mendocina with bacteremia, and chronic obstructive pulmonary disease. In view of the multiple drug allergies, particularly quinolone allergy, she will have to remain on cefepime and treated according to clinical resolution of the skin changes, at least 10 days to 2 weeks, whichever is the longest one. Job ID: [id number]
--- NOTE | 2018-08-19 20:39 | EKG ---
Test Reason : Blood Pressure : / mmHG Vent. Rate : 083 BPM Atrial Rate : 083 BPM P-R Int : 208 ms QRS Dur : 108 ms QT Int : 362 ms P-R-T Axes : 052 -42 089 degrees QTc Int : 425 ms Normal sinus rhythm with sinus arrhythmia Left axis deviation Inferior infarct , age undetermined Abnormal ECG When compared with ECG of 24-MAR-2018 15:00, Criteria for Septal infarct are no longer Present Inferior infarct is now Present Inverted T waves have replaced nonspecific T wave abnormality in Lateral leads Confirmed by MENDOZA CROWE (2) on 08/19/2018 8:39:02 PM Referred By: TAM Confirmed By:MENDOZA CROWE
[2018-08-20 05:19] LABS: Anion Gap 11 mmol/L (10-20); BUN (Urea Nitrogen) 104 mg/dL (9.8-20.1); Calc. Creatinine Clearance 31 mL/min (70-130); Calcium 8.7 mg/dL (7.8-10.44); Carbon Dioxide 23 mmol/L (23-31); Chloride 103 mmol/L (98-107); Estimated GFR-MDRD 18; Glucose 277 mg/dL (83-110); Potassium 5.4 mmol/L (3.5-5.1); Sodium 132 mmol/L (136-145)
[2018-08-20] MEDS: Insulin Regular 300 UNITS/3 ML VIAL SC PRN ×3 (05:54→18:01)
[2018-08-20] MEDS: Sodium Chloride 0.9% 1,000 ML IV SCH ×2 (05:55→20:55)
--- NOTE | 2018-08-20 08:17 | PRG ---
DATE OF SERVICE: 08/20/2018 SUBJECTIVE: Ms. Echevarria is feeling better. She is resting. Her oxygen saturations are normal on nasal cannula oxygen. No chest pain or pressure. OBJECTIVE: VITAL SIGNS: Blood pressure 138/70, pulse 74 and regular. LUNGS: Clear. CARDIAC: Normal S1. Normal S2. ABDOMEN: Soft, nontender. EXTREMITIES: Moderate edema. LABORATORY DATA: Creatinine is stable at 2.6. ASSESSMENT: 1. Diastolic heart failure, chronic. 2. Status post [id number] myocardial infarction, probably demand ischemia. PLAN: 1. We will continue with intravenous furosemide daily since her creatinine is stable. 2. No other changes. Job ID: [id number]
[2018-08-20] MEDS: Furosemide 40 MG/4 ML VIAL SLOW IVP SCH (09:16)
[2018-08-20] MEDS: Ezetimibe 10 MG TAB PO SCH (09:17)
[2018-08-20] MEDS: Saccharomyces boulardii 250 MG CAP PO SCH (09:17)
[2018-08-20] MEDS: Calcitriol 0.25 MCG CAP PO SCH (09:18)
[2018-08-20] MEDS: Metoprolol Tartrate 25 MG TAB PO SCH ×2 (09:18→20:56)
[2018-08-20] MEDS: Insulin Glargine 10 UNITS in Pre-Filled Syringe SC SCH ×2 (09:19→20:56)
[2018-08-20] MEDS: HYDROcodone/Acetaminophen 5/325 mg Tablet PO PRN ×2 (09:20→13:50)
--- NOTE | 2018-08-20 11:07 | PRG ---
DATE OF SERVICE: 08/19/2018 SUBJECTIVE: Ms. Echevarria is in no distress. OBJECTIVE: VITAL SIGNS: She is afebrile. Heart rate is 80, respiratory rate 20, oximetry is 95 on 3 L, and blood pressure is 121/58. She states she feels a little better than yesterday. LUNGS: Remarkable for faint wheezes. HEART: Regular rhythm. ABDOMEN: Soft. EXTREMITIES: stasis changes and erythema. LABORATORY DATA: Blood glucose has been in the 300 to 400 range all day today. Sodium 132, potassium 5.7, chloride 103, bicarbonate 21, BUN 98, and creatinine 2.81. IMPRESSION: 1. Chronic obstructive pulmonary disease exacerbation. 2. Lower extremity stasis. 3. ? Cellulitis. 4. Pseudomonas growing out, 2/2 blood cultures, on antimicrobial therapy. Pseudomonas is pansensitive, likely source would be her skin. 5. Acute on chronic kidney disease with borderline hyperkalemia. This will need to be followed closely. 6. 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 7. Ongoing tobacco use. PLAN: Continue with antimicrobial therapy. I would like to decrease her steroids. She was still fairly bronchospastic. We will continue with her nebulizer treatments. Job ID: [id number] [facility]
--- NOTE | 2018-08-20 13:41 | PDOC.PN ---
- Subjective Encounter Start Date: 08/20/18 Encounter Start Time: 10:25 followup for BLE cellulitis, pseudomonal bacteremia afebrile more arousable, working on rehab placement No F/C, no N/V/d/c All systems reviewed and neg x as above - Objective Resuscitation Status - Order Detail: 08/19/18 11:52 Resuscitation Status Routine Resuscitation Status: DNAR: NO Resuscitation Discussed with: patient wishes confirmed with RN and physician MAR Reviewed: Yes Vital Signs & Weight: Vital Signs (12 hours) Temp Pulse Pulse Pulse Pulse Resp BP 08/20/18 11:00 96.8 F L 68 17 08/20/18 10:19 81 20 08/20/18 09:33 79 78 176/89 H 08/20/18 09:10 96 118 H 08/20/18 07:44 08/20/18 07:23 97.6 F 74 17 08/20/18 06:44 08/20/18 06:43 84 24 H 08/20/18 03:48 97.7 F 81 18 BP BP BP Pulse Ox Pulse Ox Pulse Ox Pulse Ox 08/20/18 11:00 129/61 100 08/20/18 10:19 94 L 08/20/18 09:33 150/71 H 94 L 93 L 08/20/18 09:10 141/74 H 126/89 85 L 91 L 88 L 08/20/18 07:44 97 08/20/18 07:23 138/70 97 08/20/18 06:44 97 08/20/18 06:43 97 08/20/18 03:48 164/79 H 96 Weight Admit Weight 240 lb Weight 260 lb 8 oz Most Recent Monitor Data Heart Rate from ECG 90 NIBP 153/68 NIBP BP-Mean 96 Respiration from ECG 18 SpO2 90 I&O: 08/19/18 08/20/18 08/21/18 06:59 06:59 06:59 Intake Total 2490 1999 Output Total 815 1400 Balance 1675 599 Result Diagrams: 08/19/18 04:10 08/20/18 04:12 Additional Labs: Accuchecks 08/20/18 08/20/18 08/19/18 10:30 05:48 20:12 POC Glucose 221 H 239 H 387 H 08/19/18 16:40 POC Glucose 439 H Phys Exam - Physical Examination Constitutional: NAD HEENT: PERRLA, moist MMs, sclera anicteric, oral pharynx no lesions Neck: no nodes, no JVD, supple, full ROM Respiratory: no wheezing, no rales, no rhonchi, clear to auscultation bilateral Cardiovascular: RRR, no significant murmur, no rub Gastrointestinal: soft, non-tender, no distention, positive bowel sounds Musculoskeletal: edema present Neurological: non-focal, normal sensation, moves all 4 limbs Lymphatic: no nodes Psychiatric: normal affect, A&O x 3 Skin: cap refill <2 seconds Dx/Plan (1) Gram-negative bacteremia Code(s): R78.81 - BACTEREMIA Status: Acute Comment: GNR. History of leg cultrues with pseudomonas, steno. Verigene neg, follow up ID and sensitivitiy. ID following, changed to Cefepime 08/17 (2) COPD (chronic obstructive pulmonary disease) Status: Acute Qualifiers: COPD type: unspecified COPD Qualified Code(s): J44.9 - Chronic obstructive pulmonary disease, unspecified (3) Chronic ulcer of leg Code(s): L97.909 - NON-PRS CHRONIC ULC UNSP PRT OF UNSP LOW LEG W UNSP SEVERITY Status: Acute Qualifiers: Laterality: right Non-pressure ulcer stage: with fat layer exposed Qualified Code(s): L97.912 - Non-pressure chronic ulcer of unspecified part of right lower leg with fat layer exposed (4) NSTEMI (non-ST elevated myocardial infarction) Code(s): I21.4 - NON-ST ELEVATION (NSTEMI) MYOCARDIAL INFARCTION Status: Acute (5) Cellulitis of both lower extremities Code(s): L03.115 - CELLULITIS OF RIGHT LOWER LIMB; L03.116 - CELLULITIS OF LEFT LOWER LIMB Status: Acute Comment: recurrent, suspect GNR based on prior cultures (6) Diabetic autonomic neuropathy associated with type 2 diabetes mellitus Code(s): E11.43 - TYPE 2 DIABETES W DIABETIC AUTONOMIC (POLY)NEUROPATHY Status : Chronic (7) Labile hypertension Code(s): I10 - ESSENTIAL (PRIMARY) HYPERTENSION Status: Chronic (8) CKD (chronic kidney disease) stage 4, GFR 15-29 ml/min Code(s): N18.4 - CHRONIC KIDNEY DISEASE, STAGE 4 (SEVERE) Status: Chronic (9) Diabetes mellitus type 2 in obese Code(s): E11.69 - TYPE 2 DIABETES MELLITUS WITH OTHER SPECIFIED COMPLICATION; E66.9 - OBESITY, UNSPECIFIED Status: Chronic (10) Diabetic renal disease Code(s): E11.21 - TYPE 2 DIABETES MELLITUS WITH DIABETIC NEPHROPATHY Status: Chronic (11) Hypertension Code(s): I10 - ESSENTIAL (PRIMARY) HYPERTENSION Status: Chronic (12) Morbid obesity Code(s): E66.01 - MORBID (SEVERE) OBESITY DUE TO EXCESS CALORIES Status: Chronic - Plan cont current plan of care, continue antibiotics, PT/OT, nursing home social worker, out of bed/ambulate * .
[2018-08-20] MEDS: Cefepime 2 GM in Sodium Chloride 0.9% 100 ML IVPB SCH (15:21)
--- NOTE | 2018-08-20 17:56 | PRG ---
DATE OF SERVICE: 08/20/2018 SUBJECTIVE: There are no new complaints. She states she feels much better than she felt yesterday. OBJECTIVE: VITAL SIGNS: She is afebrile. Heart rate is 78, respiratory rate is 18, oximetry is 100%. Blood pressure for the most part has been controlled, although today there is one 192/82 blood pressure. LUNGS: Clear and distant. HEART: Regular rhythm. ABDOMEN: Soft. IMPRESSION: 1. Chronic obstructive pulmonary disease exacerbation. 2. Chronic kidney disease. 3. Diastolic heart failure. 4. Demand ischemia. 5. Obesity with deconditioning. 6. Status post [id number] amputation. She is essentially bed and chair bound since that, never been able to wear a prosthesis. 7. Chronic stasis changes of both lower extremities. She had positive blood cultures for Pseudomonas, likely as a result of cellulitis of one of her lower extremities. 8. Sleep apnea, suspect. She will continue antimicrobial therapy. She has been transferred out of the intermediate care unit. We will continue to follow. We will take her off her IV steroids and decrease her dosing, put her on 20 mg of prednisone a day. Job ID: [id number]
[2018-08-20] MEDS: Morphine 2 MG/ML SYRINGE SLOW IVP PRN (21:17)
[2018-08-20] MEDS ORDERED: diphenhydrAMINE 50 MG/ML VIAL IVP SCH (23:45)
[2018-08-20] MEDS ORDERED: hydrALAZINE 20 MG/ML VIAL SLOW IVP PRN (23:47)
[2018-08-21] MEDS: Sodium Chloride 0.9% 1,000 ML IV SCH ×2 (02:16→15:48)
[2018-08-21] MEDS: Morphine 2 MG/ML SYRINGE SLOW IVP PRN ×3 (02:35→20:39)
[2018-08-21] MEDS: Furosemide 40 MG/4 ML VIAL SLOW IVP SCH (08:08)
[2018-08-21 09:08] LABS: #Lymphocytes 0.7 thou/uL (1.20-3.40); #Monocytes 1.2 thou/uL (0.11-0.59); #Neutrophils 10.7 thou/uL (1.40-6.50); %Eosinophils 0.2 % (0.0-10.0); %Lymphocytes 5.6 % (21.0-51.0); %Monocytes 9.6 % (0.0-10.0); %Neutrophils 84.6 % (42.0-75.0); Hemoglobin 12.4 g/dL (12.0-16.0); Mean Corpuscular HGB CONC 30.5 g/dL (32.0-36.0); Mean Corpuscular Hemoglobin 26.6 pg (27.0-31.0); Mean Corpuscular Volume 87.3 fL (78.0-98.0); Mean Platelet Volume 8.3 fL (7.4-10.4); Platelet Count 290 thou/uL (130-400); RBC Distribution Width 14.3 % (11.5-14.5); Red Blood Cell (RBC) Count 4.64 mill/uL (4.20-5.40); White Blood Cell (WBC) Count 12.6 thou/uL (4.8-10.8)
[2018-08-21 09:23] LABS: Anion Gap 13 mmol/L (10-20); BUN (Urea Nitrogen) 112 mg/dL (9.8-20.1); Calc. Creatinine Clearance 36 mL/min (70-130); Calcium 9.2 mg/dL (7.8-10.44); Carbon Dioxide 22 mmol/L (23-31); Chloride 107 mmol/L (98-107); Estimated GFR-MDRD 19; Glucose 129 mg/dL (83-110); Potassium 4.8 mmol/L (3.5-5.1); Sodium 137 mmol/L (136-145)
[2018-08-21 09:25] LABS: ALT (SGPT) 22 U/L (8-55); AST (SGOT) 23 U/L (5-34); Albumin 2.8 g/dL (3.4-4.8); Alkaline Phosphatase 92 U/L (40-150); Anion Gap 14 mmol/L (10-20); BUN (Urea Nitrogen) 115 mg/dL (9.8-20.1); Bilirubin, Total 0.2 mg/dL (0.2-1.2); Calc. Creatinine Clearance 35 mL/min (70-130); Calcium 8.8 mg/dL (7.8-10.44); Carbon Dioxide 22 mmol/L (23-31); Chloride 107 mmol/L (98-107); Estimated GFR-MDRD 19; Globulin 3.8 g/dL (2.4-3.5); Glucose 132 mg/dL (83-110); Magnesium 2.3 mg/dL (1.6-2.6); Potassium 5.1 mmol/L (3.5-5.1); Protein, Total 6.6 g/dL (6.0-8.3); Sodium 138 mmol/L (136-145)
[2018-08-21] MEDS: Fentanyl 100 MCG/2 ML VIAL SLOW IVP PRN (09:31)
--- NOTE | 2018-08-21 09:50 | CT ---
NONCONTRAST ENHANCED CT IMAGES PELVIS: HISTORY: Increasing pelvic pain, a 77-year-old with a history of syncope, fall, screaming, unable to communica te. FINDINGS: Noncontrast-enhanced CT images of the pelvis were obtained. Coronal and sagittal reconstructed image s performed. There is an indwelling Youngblood catheter seen. Multilevel lumbar degenerative change is seen. There is grade I anterolisthesis of L5 on S1. Bilate ral facet hypertrophy changes seen at L5-S1. The sacrum and coccyx are unremarkable without evidence of acute fractures. The pelvis demonstrates no evidence of acute fractures. Osteoarthritic change is seen in the right hip joint with subchondral cysts. No evidence of acute pe lvic fracture seen. IMPRESSION: No evidence of acute pelvic fracture seen. POS: C
[2018-08-21] MEDS ORDERED: Ketorolac Tromethamine 30 MG/ML VIAL IVP SCH (10:00)
--- NOTE | 2018-08-21 10:50 | PRG ---
DATE OF SERVICE: 08/21/2018 SUBJECTIVE: Ms. Echevarria is a 77-year-old white female, followed up for acute kidney injury on top of her chronic renal failure. She was initially admitted secondary to a fall. In addition, the patient has had right leg cellulitis, currently on IV antibiotics. She also was noted to have an elevated troponin I on admission. She is being followed up by Cardiology. Overnight, the patient has become more confused and more agitated. She is currently rbvnhm-uin-goeok morphine sulfate. PHYSICAL EXAMINATION: VITAL SIGNS: Blood pressure is 219/100, this is before BP medications. Heart rate is 93, respiratory rate 24, pulse ox 98%. GENERAL: The patient is awake, agitated, is noted to be hollering. SKIN: Adequate turgor. HEENT: She has pinkish conjunctivae. Anicteric sclerae. NECK: No neck mass. No carotid bruits. No JVD. CHEST: No deformities. LUNGS: Decreased breath sounds. HEART: Normal sinus rhythm. No murmur. No gallops. No rubs. ABDOMEN: Globular, soft, and nontender. No masses. EXTREMITIES: Right leg dressing noted. MEDICATIONS: Medications of August 21, 2018, were reviewed. LABORATORY DATA: Laboratories of August 19, 2018, white count 10.5, hemoglobin 10.6. On August 21, 2018, baseline pending. On August 20, 2018, sodium 132, potassium 5.4, chloride 103, carbon dioxide 20, BUN 104, creatinine 2.63, and calcium 8.7. ASSESSMENT AND PLAN: 1. Congestive heart failure/diastolic dysfunction, currently on daily diuretics. Cardiology is following. 2. Acute kidney injury/chronic renal failure, stable creatinine as of yesterday. Adjust diuretics as needed depending on what therapeutic creatinine will be. There is no indication for any diuretic intervention in this patient. 3. Agitation - consider if the patient would tolerate this Haldol for the agitation. 4. Right leg cellulitis. Currently on IV cefepime. ID has evaluated this patient. Will recheck baseline CBC in the a.m. Job ID: [id number]
[2018-08-21] MEDS ORDERED: Heparin 1,000 UNITS/ML VIAL ONE (11:11)
[2018-08-21] MEDS ORDERED: Ziprasidone 20 MG VIAL IM SCH (12:15)
[2018-08-21 13:05] LABS: Actual Bicarbonate (HCO3a) 23.8 mEq/L (22-28); Analyzer IN Cardio OR; Base Excess (BEa) -3.5 mEq/L (-2.0 to +3.0); CO2 Tension 52.8 mmHg (35.0-45.0); Calcium, Ionized 1.26 mmol/L (1.12-1.30); Carboxyhemoglobin (COHb) 0.6 gm% (0.0-3.0); Hemoglobin (Hb) 12.8 g/dL (12.0-16.0); Potassium - ABG Lab 4.66 mmol/L (3.70-5.30); pH, Arterial 7.27 (7.35-7.45)
[2018-08-21 13:06] LABS: O2 Tension (PaO2) 53.8 mmHg (> 70.0); Puncture Site LR
[2018-08-21 13:35] VITALS: BMI 39.6
[2018-08-21] MEDS: predniSONE 20 MG TAB PO SCH (13:37)
[2018-08-21] MEDS: Ezetimibe 10 MG TAB PO SCH (13:38)
[2018-08-21] MEDS: Calcitriol 0.25 MCG CAP PO SCH (13:39)
[2018-08-21] MEDS: Insulin Glargine 10 UNITS in Pre-Filled Syringe SC SCH ×2 (13:39→22:50)
[2018-08-21] MEDS: Metoprolol Tartrate 25 MG TAB PO SCH ×2 (13:39→20:40)
[2018-08-21] MEDS: Saccharomyces boulardii 250 MG CAP PO SCH (13:40)
[2018-08-21] MEDS: Cefepime 2 GM in Sodium Chloride 0.9% 100 ML IVPB SCH (15:48)
[2018-08-21 18:41] LABS: HBSAB Concentration 0.64 mIU/mL; HBSAg Index 0.18 S/CO (0-0.99); Hep B Core Total Ab Non-Reactive (NonReactive); Hep B Core Total Index 0.19 S/CO (0-0.79); Hep B Surf AB Non-Reactive (NonReactive); Hep B Surf Ag Non-Reactive S/CO (NonReactive)
[2018-08-21 18:42] LABS: Hep C IgG Ab Non-Reactive (NonReactive); Hep C Index 0.24 S/CO (0-0.79)
--- NOTE | 2018-08-21 20:23 | PRG ---
DATE OF SERVICE: 08/21/2018 SUBJECTIVE: Ms. Echevarria apparently whole night and all today was yelling, top of her lungs about pain in her hip. She is given Geodon this afternoon and appeared more comfortable. OBJECTIVE: VITAL SIGNS: She is afebrile. Heart rate 74, respiratory rate in the high 20s to 30s. Her tidal volumes are very small, oximetry is 93 on 3 L. Blood pressure 116/56. LUNGS: Marked for distant breath sounds. HEART: Regular rhythm. ABDOMEN: Soft. PELVIS: CT visualizing both femurs, did not show any obvious fracture. She certainly could have an occult fracture that we will only find by bone scan, but that is not indicated at this time. LABORATORY DATA: White count 12.6, hemoglobin 12.4, and platelets 290. Electrolytes are normal. BUN is 112, creatinine 2.5. Blood gas; 7.37, CO2 of 52, and PO2 of 53. IMPRESSION: 1. Mixed respiratory metabolic acidosis with respiratory distress. 2. Advanced obstructive lung disease. 3. Status post fall with prolonged downtime with extreme weakness and deconditioning. I really do not feel that she will survive this hospitalization. Family had been notified earlier and reportedly en route. Other problems include severe peripheral vascular disease, hypertension, sleep apnea, obesity, chronic kidney disease now with uremia, history of subdural hematoma, history of coronary artery disease and diastolic heart failure. We will continue with supportive care. Care should be my opinion shifting more towards comfort measures. It might be appropriate to consider inpatient hospice. Job ID: [id number]
[2018-08-21] MEDS: Acetaminophen 325 MG TAB PO PRN (20:41)
--- NOTE | 2018-08-21 22:42 | PRG ---
DATE OF SERVICE: 08/20/2018 SUBJECTIVE: Ms. Echevarria is a 77-year-old white female, who was admitted due to a fall and associated myalgia. She has a prolonged immobility - was standing on the floor for several hours. We are following her up for her chronic renal failure. She has also been seen by Cardiology, who made a recommendation for her to continue the IV furosemide. She was complaining of diffuse myalgia and some degree of shortness of breath. Please note her oxygenation is noted to be adequate at 97%. OBJECTIVE: VITAL SIGNS: Blood pressure is 138/70, heart rate is 74, respiratory rate 17, temperature 97.6, and pulse ox 97%. GENERAL: Awake, mild pain, not in overt cardiorespiratory distress. SKIN: Adequate turgor. HEENT: She has pinkish conjunctivae. Anicteric sclerae. NECK: No neck mass. No carotid bruits. No JVD. CHEST: No deformities. LUNGS: Decreased breath sounds. HEART: Normal sinus rhythm. No murmur. No gallops. No rubs. ABDOMEN: Globular, soft, nontender. No masses. EXTREMITIES: No edema. Positive for dressing on the right foot. MEDICATIONS: Medications of August 20, 2018, was reviewed. LABORATORY DATA: Laboratories of August 19, 2018, white count 10.5, hemoglobin 10.6. On August 20, 2018; sodium 132, potassium 5.4, chloride 103, carbon dioxide 23, BUN 104, creatinine 2.63, glucose 277, and calcium 8.7. ASSESSMENT AND PLAN: 1. Chronic renal failure - stable creatinine. BUN is slightly high at 104. This may be a reflection regimen. Continue judicious use of diuretics. There is no indication for any diuretic intervention with this patient. 2. Leg cellulitis - continue on IV antibiotics. 3. Shortness of breath - the patient is currently on Lasix at 40 mg IV daily. If the renal function will further worsen, we can add q.6. Overall prognosis remains guarded. Job ID: [id number]
[2018-08-22] MEDS: Morphine 2 MG/ML SYRINGE SLOW IVP PRN (04:34)
[2018-08-22 05:20] LABS: #Eosinphils 0.1 thou/uL (0.0-0.7); #Lymphocytes 0.6 thou/uL (1.20-3.40); #Monocytes 0.9 thou/uL (0.11-0.59); #Neutrophils 11.2 thou/uL (1.40-6.50); %Eosinophils 0.6 % (0.0-10.0); %Lymphocytes 4.8 % (21.0-51.0); %Monocytes 7.2 % (0.0-10.0); %Neutrophils 87.4 % (42.0-75.0); Hemoglobin 11.9 g/dL (12.0-16.0); Mean Corpuscular HGB CONC 30.2 g/dL (32.0-36.0); Mean Corpuscular Hemoglobin 26.4 pg (27.0-31.0); Mean Corpuscular Volume 87.4 fL (78.0-98.0); Mean Platelet Volume 8.2 fL (7.4-10.4); Platelet Count 225 thou/uL (130-400); RBC Distribution Width 14.5 % (11.5-14.5); Red Blood Cell (RBC) Count 4.51 mill/uL (4.20-5.40); White Blood Cell (WBC) Count 12.8 thou/uL (4.8-10.8)
[2018-08-22 05:35] LABS: Sodium 140 mmol/L (136-145)
[2018-08-22 05:36] LABS: Anion Gap 12 mmol/L (10-20); BUN (Urea Nitrogen) 92 mg/dL (9.8-20.1); Calc. Creatinine Clearance 41 mL/min (70-130); Calcium 9.2 mg/dL (7.8-10.44); Carbon Dioxide 25 mmol/L (23-31); Chloride 108 mmol/L (98-107); Estimated GFR-MDRD 22; Glucose 101 mg/dL (83-110); Potassium 4.6 mmol/L (3.5-5.1)
[2018-08-22] MEDS: Furosemide 40 MG/4 ML VIAL SLOW IVP SCH (08:12)
[2018-08-22] MEDS: Fentanyl 100 MCG/2 ML VIAL SLOW IVP PRN ×2 (08:12→16:25)
--- NOTE | 2018-08-22 08:36 | OP ---
DATE OF PROCEDURE: 08/21/2018 PREOPERATIVE DIAGNOSES: Acute renal failure, mental status change, in need of acute dialysis due to uremia, confusion. Note, IV left upper arm, multiple ecchymoses of upper arm and forearm from blood draws. PROCEDURE PERFORMED: Right femoral vein Trialysis catheter. ANESTHESIA: 1% Xylocaine. DESCRIPTION OF PROCEDURE: With the patient at bedside, the right groin was prepared with ChloraPrep. We tried to get hair clippers, but there was none that would work on the floor. A sterile prep was applied and local anesthetic 1% Xylocaine infiltrated in the skin and subcutaneous tissues place a Trialysis catheter, placed in serial dilators over the J-wire, placed in the catheter into the femoral vein and removing the J-wire, port filled with blood, flushed with heparinized saline solution. A 3-0 nylon suture was secured to the catheter. Sterile dressing was applied. The patient tolerated the procedure well. Job ID: [id number]
[2018-08-22] MEDS ORDERED: Ziprasidone 20 MG VIAL IM SCH (10:00)
[2018-08-22] MEDS ORDERED: Sterile Water 10 ML VIAL FS SCH (10:00)
[2018-08-22] MEDS: Ezetimibe 10 MG TAB PO SCH (10:05)
[2018-08-22] MEDS: predniSONE 20 MG TAB PO SCH (10:05)
[2018-08-22] MEDS: Calcitriol 0.25 MCG CAP PO SCH (10:05)
[2018-08-22] MEDS: Insulin Glargine 10 UNITS in Pre-Filled Syringe SC SCH (10:06)
[2018-08-22] MEDS: Saccharomyces boulardii 250 MG CAP PO SCH (10:06)
[2018-08-22] MEDS: Metoprolol Tartrate 25 MG TAB PO SCH (10:06)
[2018-08-22] MEDS: Sodium Chloride 0.9% 1,000 ML IV SCH (10:15)
--- NOTE | 2018-08-22 10:20 | PRG ---
DATE OF SERVICE: SUBJECTIVE: Ms. Echevarria is a 77-year-old white female who has been followed for chronic renal failure, diabetes nephropathy. During this hospitalization, renal function has worsened. She has become clinically euvolemic and volume overloaded. For that reason, we initiated dialysis. We did 1 hour dialysis yesterday with fluid removal. My plan is do another hemodialysis for 2 hours with fluid removal. She continues to remain agitated. She was given Geodon last night with resultant control of her agitation. This morning, she is due for venous vein mapping. OBJECTIVE: VITAL SIGNS: Blood pressure is 147/61, heart rate 85, respiratory rate 18, temperature 97.7, pulse ox 97%. GENERAL: Awake, but agitated, not in over respiratory distress. SKIN: Adequate turgor. HEENT: Pinkish conjunctivae. Anicteric sclerae. NECK: No neck mass. No carotid bruits. No JVD. CHEST: No deformities. LUNGS: Clear breath sounds. No wheezing. No crackles. HEART: Normal sinus rhythm. No murmur. No gallops. No rubs. ABDOMEN: Globular, soft, nontender. No masses. EXTREMITIES: No edema. No deformities. MEDICATIONS: Medications of August 22, 2018, was reviewed. LABORATORY DATA: Laboratories of August 22, 2018, shows a white count 12.8, hemoglobin 11.9. Sodium 140, potassium 4.6, chloride 108, carbon dioxide 25, BUN 92, creatinine 2.18, glucose 101, calcium 9.2. ASSESSMENT AND PLAN: 1. Agitation, p.r.n. Geodon. 2. Right leg infection, currently on IV antibiotics. ID is following. 3. Diastolic heart failure - currently on IV Lasix. With the initiation of dialysis, we will discontinue IV Lasix. 4. Chronic renal failure/acute kidney injury, worsening renal function. The plan is to continue hemodialysis. We will observe for a possible renal recovery in the next several days. Overall prognosis remains guarded with this patient. Job ID: [id number] [facility]
--- NOTE | 2018-08-22 10:49 | ULT ---
BILATERAL UPPER EXTREMITY VENOUS DOPPLER ULTRASOUND FOR DIALYSIS ACCESSS: Date: 08/22/18 HISTORY: End-stage renal disease. FINDINGS: RIGHT UPPER EXTREMITY: The right cephalic vein measures 3.4 mm in the proximal arm, 3.3 mm in the mid arm, 3.1 mm in the dis alysia arm, 5.7 mm in the antecubital fossa, 2.9 mm in the proximal forearm, 2.4 mm in the mid forearm, and 2.0 mm in the distal forearm. The right basilic vein measures 3.9 mm in the proximal arm, 3.5 mm in the mid arm, 3.1 mm in the dist al arm, 3.4 mm in the antecubital fossa, 1.6 mm in the proximal forearm, 2.1 mm in the mid forearm, a nd 0.9 mm in the distal forearm. The right brachial artery measures 5.1 mm, radial artery measures 2.3 mm, and ulnar artery measures 1 .8 mm. LEFT UPPER EXTREMITY: The left cephalic vein measures 1.2 mm in the proximal arm, 1.2 mm in the mid arm, 1.2 mm in the dist al arm, 1.4 mm in the antecubital fossa, 0.9 mm in the proximal forearm, 0.7 mm in the mid forearm, a nd 0.6 mm in the distal forearm. The left basilic vein measures 9.3 mm in the proximal arm, 5.1 mm in the mid arm, 4.3 mm in the dista l arm, 3.1 mm in the antecubital fossa, 1.4 mm in the proximal forearm, 1.5 mm in the mid forearm, an d 1.3 mm in the distal forearm. The left brachial artery measures 5.3 mm, radial artery measures 1.9 mm, and ulnar artery measures 1. 6 mm. POS: DAE
--- NOTE | 2018-08-22 11:52 | PRG ---
DATE OF SERVICE: 08/22/2018 SUBJECTIVE: Lexie Echevarria continues to moan constantly. She is encephalopathic. OBJECTIVE: VITAL SIGNS: She is afebrile. Heart rate is 85, respiratory rate is 18, oximetry is 97 on 3 L, blood pressure 147/61. LUNGS: Unchanged. HEART: Unchanged. ABDOMEN: Unchanged. She started dialysis last night. IMPRESSION: 1. Encephalopathy. 2. Advanced obstructive lung disease. 3. Chronic respiratory failure, on home oxygen. 4. Status post fall with a big soft tissue hematoma posteriorly. 5. Status post being found down after 11 hours. 6. Anemia of chronic disease. 7. Rhabdomyolysis associated with her fall. PLAN: Plan is to continue supportive care. Again, I do not feel she will survive this hospitalization given the severity of her lung disease, encephalopathy, and her bedridden state. Job ID: [id number]
[2018-08-22] MEDS: Cefepime 2 GM in Sodium Chloride 0.9% 100 ML IVPB SCH (16:26)
[2018-08-22 16:35] VITALS: BP 171/92; TEMP 98.2
--- NOTE | 2018-08-22 18:07 | PRG ---
DATE OF SERVICE: 08/22/2018 SUBJECTIVE: Ms. Echevarria has just completed hemodialysis. She is not having chest pain or pressure, but she is intermittently calling out. She looks uncomfortable. She does not report any chest pain or other pain. OBJECTIVE: VITAL SIGNS: Her blood pressure 122/56, pulse 90 and regular. LUNGS: Clear. CARDIAC: Normal S1. Normal S2. ABDOMEN: Obese and nontender. EXTREMITIES: There is ksci-pu-fmxgyici edema. PERTINENT LABORATORY DATA: Hemoglobin 11.9. Creatinine is down to 2.18. ASSESSMENT: 1. Renal failure. 2. Longstanding diastolic heart failure. 3. History of hypertension. 4. Coronary artery disease, disease. 5. Do not resuscitate status. PLAN: 1. The patient is on antibiotics. 2. Aspirin. 3. Furosemide. 4. Metoprolol, low dose. 5. Prognosis appears poor, unfortunately ejection fraction is normal. She has diastolic heart failure and renal failure. 6. Do not resuscitate status. Job ID: [id number]
--- NOTE | 2018-08-23 16:10 | EKG ---
Test Reason : SEPSIS Blood Pressure : / mmHG Vent. Rate : 096 BPM Atrial Rate : 096 BPM P-R Int : 178 ms QRS Dur : 116 ms QT Int : 352 ms P-R-T Axes : 042 -46 094 degrees QTc Int : 444 ms Normal sinus rhythm Possible Left atrial enlargement Left axis deviation Inferior infarct , possibly acute ST elevation III, aVR Consider right ventricular involvement in acute inferior infarct Abnormal ECG Confirmed by ALIYAH LYN ([id number]), market editor NITZA PEREZ ([id number] on 08/23/2018 4:10:44 PM Referred By: Confirmed By:ALIYAH LYN
== END 2018-08-22 16:44 | disposition hospice, inpatient (51) | DRG 872 ==
LOC: ERS 17:31 → CCU 19:58 → IMCU/EMU 08-18 20:32 → 2NO 08-20 14:57
PROVIDERS: ADMIT Hospitalist; ATTEND Hospitalist
PROC: 06HM33Z Insertion of Infusion Device into Right Femoral Vein, Percutaneous Approach (ICD-10-PCS; principal; 2018-08-21)
PROC: 5A1D70Z Performance of Urinary Filtration, Intermittent, Less than 6 Hours Per Day (ICD-10-PCS; 2018-08-21)
PROC: 5A1D70Z Performance of Urinary Filtration, Intermittent, Less than 6 Hours Per Day (ICD-10-PCS; 2018-08-22)
DX: A41.9 Sepsis, unspecified organism (principal); I13.0 Hypertensive heart and chronic kidney disease with heart failure and stage 1 through stage 4 chronic kidney disease, or unspecified chronic kidney disease; N17.9 Acute kidney failure, unspecified; L97.912 Non-pressure chronic ulcer of unspecified part of right lower leg with fat layer exposed; L03.115 Cellulitis of right lower limb; L03.116 Cellulitis of left lower limb; N18.4 Chronic kidney disease, stage 4 (severe); I50.32 Chronic diastolic (congestive) heart failure; J96.10 Chronic respiratory failure, unspecified whether with hypoxia or hypercapnia; I24.8 Other forms of acute ischemic heart disease; M62.82 Rhabdomyolysis; G93.40 Encephalopathy, unspecified; Z66 Do not resuscitate; I25.10 Atherosclerotic heart disease of native coronary artery without angina pectoris; J44.9 Chronic obstructive pulmonary disease, unspecified; E11.22 Type 2 diabetes mellitus with diabetic chronic kidney disease; E11.622 Type 2 diabetes mellitus with other skin ulcer; E66.01 Morbid (severe) obesity due to excess calories; Z68.39 Body mass index [BMI] 39.0-39.9, adult; E11.43 Type 2 diabetes mellitus with diabetic autonomic (poly)neuropathy; G47.33 Obstructive sleep apnea (adult) (pediatric); E11.51 Type 2 diabetes mellitus with diabetic peripheral angiopathy without gangrene; E87.5 Hyperkalemia; Z99.81 Dependence on supplemental oxygen; D63.8 Anemia in other chronic diseases classified elsewhere; Z79.82 Long term (current) use of aspirin; Z90.49 Acquired absence of other specified parts of digestive tract
CPT/HCPCS: 36415; 36416; 51701; 70450; 71045; 72170; 72192; 80048; 80053; 80061; 81003; 81015; 82550; 82553; 82805; 83605; 83690; 83735; 83880; 83930; 84145; 84484; 85025; 85379; 85610; 85652; 85730; 86140; 86704; 86706; 86803; 87040; 87077; 87086; 87149; 87186; 87340; 90935; 93005; 93010; 93306; 93970; 94640; 94660; 94760; 96365; 96375; A4216; A4353; G0257; G0365; G8978-GP-CM; G8979-GP-CK; G8987-GO-CL; G8988-GO-CJ; G8996-GN-CM; G8997-GN-CL; J0360; J0692; J0696; J1200; J1642; J1644; J1815; J1885; J1940; J2270; J2920; J3010; J3486; J7050; J7620